=== PATIENT | female | born 1945 | race Caucasian/White ===

== ENCOUNTER 2024-06-25 07:43 | Inpatient (IN) | payer OTHER ==
[~2024-06-25] VITALS: Ht 160 cm; Wt 72.1 kg
--- NOTE | 2024-06-25 08:14 | ED.PDOC ---
Cintia. trauma (HPI) HPI Comments 78 year old female FABIOLA presents to the ED with chief complaint of back/neck pain s/p fall. Patient reports that she has been experiencing diarrhea for the past 2 days and had also taken a bottle of Magnesium Citrate yesterday, so she got up to use the restroom around 3am today. Patient relays that when getting up from the toilet, she felt lightheaded and lost her balance, had a syncopal episode, falling and being stuck on the ground unable to get up for 4 hours before her daughter found her and called 911. Patient states she is experiencing neck pain, back pain, and bilateral shoulder pain since the fall, but does not recall if she had hit her head or not. EMS notes patient's BG was noted to be 358 on scene and patient has stated she feels very dehydrated due to her diarrhea. Patient denies any nausea, vomiting, abdominal pain, SOB, dizziness, headache, or chest pain at this time. Chief Complaint: Fall Injury Time Seen by MD: 08:06 Reviewed notes: Nurses Notes, Medications, Allergies Allergies: Coded Allergies: Iodine (Verified Allergy, Unknown, 06/25/24) Sulfa Antibiotics (Verified Allergy, Unknown, 06/25/24) Information Source: Patient, Emergency Med Personnel Mode of Arrival: EMS Severity: Moderate Timing: Hours Duration: Since onset Prehospital treatment: None Location: Back, Neck, (L) Shoulder, (R) Shoulder Location of neck pain: (R) Posterior, (L) Posterior Location of laceration: None Mechanism: Fall Past Medical History PAST MEDICAL HISTORY: COPD, CVA Surgical History (Other): hip surgery 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 DEVELOPER Hx Family History Family History: Reviewed,noncontributory to illness Social History Smoker: Quit Less Than 1 Year, Cigarettes Alcohol: Denies ETOH Use Drugs: Denies Drug Use Lives In: Home Constitutional: denies: chills, diaphoresis, fatigue, fever, malaise, sweats, weakness, others EENTM: denies: blurred vision, double vision, ear bleeding, ear discharge, ear drainage, ear pain, ear ringing, eye pain, eye redness, hearing loss, mouth pain, mouth swelling, nasal discharge, nose bleeding, nose congestion, nose pain, photophobia, tearing, throat pain, throat swelling, voice changes, others Respiratory: denies: cough, hemoptysis, orthopnea, SOB at rest, shortness of breath, SOB with excertion, stridor, wheezing, others Cardiovascular: reports: syncope; denies: chest pain, dizzy spells, diaphoresis, Dyspnea on exertion, edema, irregular heart beat, left arm pain, lightheadedness, palpitations, PND, others Gastrointestinal: reports: diarrhea; denies: abdomen distended, abdominal pain, blood streaked bowels, constipated, dysphagia, difficulty swallowing, hematemesis, melena, nausea, poor appetite, poor fluid intake, rectal bleeding, rectal pain, vomiting, others Genitourinary: denies: abnormal vagina bleeding, burning, dyspareunia, dysuria, flank pain, frequency, hematuria, incontinence, pain, , vagina discharge, urgency, others Neurological: denies: dizziness, fainting, headache, left sided numbness, left sided weakness, numbness, paresthesia, pre-existing deficit, right sided numbness, right sided weakness, seizure, speech problems, tingling, tremors, weakness, others Musculoskeletal: reports: back pain, neck pain, others (Bilateral shoulder pain); denies: gout, joint pain, joint swelling, muscle pain, muscle stiffness Integumetry: denies: bruises, change in color, change in hair/nails, dryness, laceration, lesions, lumps, rash, wounds, others Allergic/Immunocompromised: denies: Difficulty Healing, Frequent Infections, Hives, Itching, others Hematologic/Lymphatic: denies: anemia, blood clots, easy bleeding, easy bruising, swollen glands, others Endocrine: denies: excessive hunger, excessive sweating, excessive thirst, excessive urination, flushing, intolerance to cold, intolerance to heat, unexplained weight gain, unexplained weight loss, others Psychiatric: denies: anxiety, bipolar disorder, depression, hopeless, panic disorder, schizophrenia, sleepless, suicidal, others All Other Systems: Reviewed and Negative Physical Exam General Appearance: No Apparent Distress, Normal HEENT: Normal ENT Inspection, PERRL/EOMI Neck: Full Range of Motion, Non-Tender, Normal, Normal Inspection Respiratory: Chest Non-Tender, Lungs Clear, No Accessory Muscle Use, No Respira tory Distress, Normal Breath Sounds Cardiovascular: No Edema, No JVD, No Murmur, No Gallop, Normal Peripheral Pulses, Regular Rate/Rhythm Breast Exam: Deferred Gastrointestinal: No Organomegaly, Non Tender, No Pulsatile Mass, Normal Bowel Sounds, Soft Genitalia: Deferred Pelvic: Deferred Rectal: Deferred Extremities: No calf tenderness, Normal capillary refill, Normal inspection, Normal range of motion, Non-tender, No pedal edema Musculoskeletal : Extremity Location: Back Apperance: Normal, Tenderness (Proximal thorax spine tenderness) Neurologic: Alert, plate developer II-XII nml as Tested, No Motor Deficits, Normal Affect, Normal Mood, No Sensory Deficits Cerebellar Function: Normal Reflexes: Normal Skin: Dry, Normal Color, Warm Lymphatic: No Adenopathy Was a procedure done? Was a procedure done?: No EKG EKG : Pulse Rate (adult): 77 Maxbass: Normal Cardiac Rhythm: PVC's Block: None Hypertrophy: None ST: Normal Comments Diffuse ST depression and ST elevation in AVR. No STEMI. Differential Diagnosis Multiple Trauma: Closed Head Injury, Fractures, Contusion Neck Injury: Cervical Sprain, Cervical Strain, Cervical Fracture X-Ray, Labs, Meds, VS Vital Signs Date Time Temp Pulse Resp B/P (MAP) Pulse Ox O2 Delivery O2 Flow Rate FiO2 06/25/24 12:31 98.2 80 18 135/63 (87) 97 98.2 06/25/24 10:36 77 06/25/24 10:30 77 06/25/24 09:57 97.5 66 18 116/77 (90) 95 97.5 06/25/24 08:30 17 Room Air* 0 21 06/25/24 07:50 98.4 79 18 123/96 (105) 95 Lab Test 06/25/24 12:43 06/25/24 10:33 06/25/24 09:32 Range/Units Troponin I High Sensitivity Pending 21 19 </=34 ng/L White Blood Count 12.8 H 4.4-10.8 10^3/uL Red Blood Count 5.03 4.0-5.20 10^6/uL Hemoglobin 16.7 H 12.2-16.2 g/dL Hematocrit 49.9 H 36.0-46.0 % Mean Corpuscular Volume 99.1 80.0-100.0 fL Mean Corpuscular Hemoglobin 33.2 H 28.0-32.0 pg Mean Corpuscular Hemoglobin Concent 33.5 32.0-36.0 g/dL Red Cell Distribution Width 14.1 11.8-14.3 % Platelet Count 220 140-450 10^3/uL Mean Platelet Volume 7.4 6.9-10.8 fL Neutrophils (%) (Auto) 74.2 37.0-80.0 % Lymphocytes (%) (Auto) 16.6 10.0-50.0 % Monocytes (%) (Auto) 8.4 0.0-12.0 % Eosinophils (%) (Auto) 0.6 0.0-7.0 % Basophils (%) (Auto) 0.2 0.0-2.0 % Neutrophils # (Auto) 9.5 H 1.6-8.6 10 ^3/uL Lymphocytes # (Auto) 2.1 0.4-5.4 10 ^3/uL Monocytes # (Auto) 1.1 0-1.3 10 ^3/uL Eosinophils # (Auto) 0.1 0-0.8 10 ^3/uL Basophils # (Auto) 0 0-0.2 10 ^3/uL Nucleated Red Blood Cells 0.1 % Sodium Level 138 136-145 mmol/L Potassium Level 2.6 L 3.5-5.1 mmol/L Chloride Level 88 L 98-107 mmol/L Carbon Dioxide Level 31 20-31 mmol/L Anion Gap 19 H 5-15 Blood Urea Nitrogen 16 9-23 mg/dL Creatinine 0.79 0.550-1.02 mg/dL Glomerular Filtration Rate Calc 76 >90 mL/min BUN/Creatinine Ratio 20.3 H 10.0-20.0 Serum Glucose 147 H 74-106 mg/dL Calcium Level 10.8 H 8.7-10.4 mg/dL Plasma/Serum Blood Alcohol 3.4 <10 mg/dL Chest XR: FINDINGS: Lines and Tubes: None Lungs: No focal consolidation. Pleura: No effusion. No pneumothorax. Cardiomediastinal contours: Unremarkable Bones: No acute osseous abnormality. IMPRESSION: No acute cardiopulmonary disease. Head CT: FINDINGS: There is no acute intracranial hemorrhage or extraaxial fluid collection. No mass effect or midline shift. Chronic appearing lacunar infarcts in the basal ganglia bilaterally. Small lucency also noted in the right side of the bhavin, suspect old small lacunar infarct, most likely chronic Scatte red areas of hypoattenuation are seen in the periventricular and subcortical white matter, which are nonspecific but most likely sequelae of small vessel ischemic disease. The ventricles and sulci are within normal limits in size for age. Basal cisterns are patent. The calvarium is unremarkable. Paranasal sinuses and mastoid air cells are clear. IMPRESSION: 1. No acute intracranial hemorrhage. 2. Multiple chronic appearing bilateral lacunar infarcts all small suspected lacunar infarct in the right side of the bhavin. 3. Findings consistent were sequela small-vessel ischemic disease. T-Spine CT: FINDINGS: The alignment is preserved. There is mild s shaped curvature of the lumbar spine. The vertebral bodies are normal in height. The intervertebral disc spaces are maintained. There is no evidence of spinal canal or neural foraminal stenosis. The prevertebral soft tissues are unremarkable. Paraspinal muscles are also within normal limits. IMPRESSION: 1. No fracture or malalignment in the thoracic spine C-Spine CT: FINDINGS: Bones: Straightening of the normal cervical lordosis. No significant spondylolisthesis. Vertebral body heights are maintained. Posterior elements are intact. No acute fracture. Multilevel moderate disc space narrowing in the cervical spine with associated endplate sclerosis and endplate spurring, greatest at the C5-C6 and C6-C7 levels. Multilevel facet and uncinate hypertrophy with areas of moderate neural foraminal stenosis. Paraspinal soft tissues: Prevertebral and paraspinal soft tissues are unremarkable. Other: No other significant findings. IMPRESSION: 1. No evidence of acute fracture or spondylolisthesis. 2. Straightening of the normal cervical lordosis, may be positional or due to muscle spasm. 3. Degenerative disc disease and facet/uncinate disease in the cervical spine as described above. Images Reviewed?: Images reviewed and evaluated by me Time of 1ST Reevaluation: 09:06 Reevaluation 1ST: Unchanged Time of 2ND Reevaluation: 13:22 Reevaluation 2ND: Improved Patient Education/Counseling: Diagnosis, Treatment Family Education/Counseling: No Family Present Departure 1 Departure Time of Disposition: :22 Impression: Primary Impression: Syncope and collapse Additional Impressions: Dehydration Diarrhea Disposition: ADMITTED INPATIENT Admit to: [facility] Condition: Stable Critical Care Note Critical Care Time?: Yes (35 min-critical care time only) Critical care comment: CRITICAL CARE TIME: *35 minutes Treatments/Evaluations: Close monitoring and treatment of unstable vital signs, cardiorespiratory, and neurologic status, while maintaining tight balance of fluid, respiratory, and cardiac interventions. This time includes discussing the case with the patient and the patients family. This time does not include all procedures stated elsewhere in this record. This time also includes reviewing old records, labs and radiological studies. This time includes examining and re- examining the patient. Additionally, this time also includes arranging care with admitting and consulting physicians. Stability Stability form required: No Heart Score Heart Score: Heart Score Response (Comments) Value History N/A 0 EKG N/A 0 Age N/A 0 Risk Factors N/A 0 Troponin N/A 0 Total 0 I personally scribed for KENYON MONTEZ MD ([email or web address]) on 06/25/24 at 08:14. Electronically submitted by Tam Forte ([email or web address]). I personally scribed for KENYON MONTEZ MD ([email or web address]) on 06/25/24 at 09:49. Electronically submitted by Tam Forte ([email or web address]). I personally scribed for KENYON MONTEZ MD ([email or web address]) on 06/25/24 at 10:36. Electronically submitted by Tam Forte ([email or web address]). I personally scribed for KENYON MONTEZ MD ([email or web address]) on 06/25/24 at 11:39. Electronically submitted by Tam Forte ([email or web address]). I personally scribed for KENYON MONTEZ MD ([email or web address]) on 06/25/24 at 13:12. Electronically submitted by Tam Forte ([email or web address]). KENYON MONTEZ MD Jun 25, 2024 08:14
[2024-06-25] MEDS: SODIUM CHLORIDE 0.9% 500 ML IVB ONE (08:15)
[2024-06-25 08:30] VITALS: RESP 17
--- NOTE | 2024-06-25 09:23 | DVH ---
CLINICAL INFORMATION: 78 years old, Female; syncope. TECHNIQUE: Axial imaging was obtained through the brain without contrast. Coronal and sagittal refor matted images were obtained, reviewed, and stored. Images were reviewed in brain and bone windows. A ll CT scans at this medical facility are performed using dose modulation techniques as appropriate to a performed exam including the following: Automated exposure control was utilized; adjustment of the MA and/or KV according to patient size; and use of iterative reconstruction technique. CTDIvol = 56.75 mGy DLP = 1003.71 mGy-cm COMPARISON: None FINDINGS: There is no acute intracranial hemorrhage or extraaxial fluid collection. No mass effect o r midline shift. Chronic appearing lacunar infarcts in the basal ganglia bilaterally. Small lucency a lso noted in the right side of the bhavin, suspect old small lacunar infarct, most likely chronic Scatt ered areas of hypoattenuation are seen in the periventricular and subcortical white matter, which are nonspecific but most likely sequelae of small vessel ischemic disease. The ventricles and sulci are within normal limits in size for age. Basal cisterns are patent. The calvarium is unremarkable. P aranasal sinuses and mastoid air cells are clear. IMPRESSION: 1. No acute intracranial hemorrhage. 2. Multiple chronic appearing bilateral lacunar infarcts all small suspected lacunar infarct in the r ight side of the bhavin. 3. Findings consistent were sequela small-vessel ischemic disease.
--- NOTE | 2024-06-25 09:26 | DVH ---
EXAM: XY CHEST PORTABLE Indication: sob Technique: Single frontal view of the chest was obtained Comparison: None FINDINGS: Lines and Tubes: None Lungs: No focal consolidation. Pleura: No effusion. No pneumothorax. Cardiomediastinal contours: Unremarkable Bones: No acute osseous abnormality. IMPRESSION: No acute cardiopulmonary disease.
--- NOTE | 2024-06-25 09:27 | DVH ---
CLINICAL HISTORY: fall injury. COMPARISON: None TECHNIQUE: Axial CT images of the cervical spine were obtained without IV contrast. Coronal and sagit sammy reformatted images were obtained. All CT scans at this medical facility are performed using dose modulation techniques as appropriate to a performed exam including the following: Automated exposure control was utilized; adjustment of the MA and/or KV according to patient size; and use of iterative reconstruction technique. CTDIvol = 23.68, 0.41, 0.07 mGy DLP = 574.43 mGy-cm FINDINGS: Bones: Straightening of the normal cervical lordosis. No significant spondylolisthesis. Vertebral frederick dy heights are maintained. Posterior elements are intact. No acute fracture. Multilevel moderate disc space narrowing in the cervical spine with associated endplate sclerosis and endplate spurring, grea test at the C5-C6 and C6-C7 levels. Multilevel facet and uncinate hypertrophy with areas of moderate neural foraminal stenosis. Paraspinal soft tissues: Prevertebral and paraspinal soft tissues are unremarkable. Other: No other significant findings. IMPRESSION: 1. No evidence of acute fracture or spondylolisthesis. 2. Straightening of the normal cervical lordosis, may be positional or due to muscle spasm. 3. Degenerative disc disease and facet/uncinate disease in the cervical spine as described above.
--- NOTE | 2024-06-25 09:31 | DVH ---
CLINICAL INDICATION: 78 years old, Female; fall. TECHNIQUE: CT of the lumbar spine was performed without intravenous contrast. Sagittal and coronal re formatted images are provided. All CT scans at this medical facility are performed using dose modula tion techniques as appropriate to a performed exam including the following: Automated exposure contro l was utilized; adjustment of the MA and/or KV according to patient size; and use of iterative recons truction technique. COMPARISON: None CT Dose: CTDI volume is 31.2 mGy. Dose-length product is 1183 mGy*cm FINDINGS: The alignment is preserved. There is mild s shaped curvature of the lumbar spine. The vertebral tamia s are normal in height. The intervertebral disc spaces are maintained. There is no evidence of spinal canal or neural foraminal stenosis. The prevertebral soft tissues are unremarkable. Paraspinal muscles are also within normal limits. IMPRESSION: 1. No fracture or malalignment in the thoracic spine
[2024-06-25 09:49] LABS: Basophils # (auto) 0 10 ^3/uL (0-0.2); Basophils % (auto) 0.2 % (0.0-2.0); Eosinophils # (auto) 0.1 10 ^3/uL (0-0.8); Eosinophils % (auto) 0.6 % (0.0-7.0); Hematocrit 49.9 % (36.0-46.0); Hemoglobin 16.7 g/dL (12.2-16.2); Lymphocytes # (auto) 2.1 10 ^3/uL (0.4-5.4); Lymphocytes % (auto) 16.6 % (10.0-50.0); Mean Corpuscular Hemoglobin 33.2 pg (28.0-32.0); Mean Corpuscular Hgb Conc. 33.5 g/dL (32.0-36.0); Mean Corpuscular Volume 99.1 fL (80.0-100.0); Monocytes # (auto) 1.1 10 ^3/uL (0-1.3); Monocytes % (auto) 8.4 % (0.0-12.0); Neutrophils # (auto) 9.5 10 ^3/uL (1.6-8.6); Neutrophils % (auto) 74.2 % (37.0-80.0); Nucleated Red Blood Cells % 0.1 %; Platelet Count (auto) 220 10^3/uL (140-450); Red Blood Cells 5.03 10^6/uL (4.0-5.20); Red Cell Distribution Width 14.1 % (11.8-14.3); White Blood Cell 12.8 10^3/uL (4.4-10.8)
[2024-06-25 12:16] LABS: Chloride 88 mmol/L (98-107); Sodium 138 mmol/L (136-145)
[2024-06-25 12:18] LABS: Glucose 147 mg/dL (74-106)
[2024-06-25 12:19] LABS: Anion Gap 19 (5-15); Calcium 10.8 mg/dL (8.7-10.4); Carbon Dioxide 31 mmol/L (20-31)
[2024-06-25 12:37] LABS: BUN/Creatinine Ratio 20.3 (10.0-20.0); Blood Urea Nitrogen 16 mg/dL (9-23); Potassium 2.6 mmol/L (3.5-5.1)
[2024-06-25] MEDS: POTASSIUM EFFERVESENT TAB 25 MEQ GT ONE (14:48)
--- NOTE | 2024-06-25 17:34 | DVHHP2 ---
Admitting Diagnosis: Admission date: 06/25/2024 Patient is s/p fall History of Present Illness Patient is a 78-year-old female who presents to the ED with neck and back pain status post fall. Patient states that due to having diarrhea for the past 2 days she has taken a bottle of magnesium citrate yesterday. Patient had got up around 3 AM today to use the bathroom and when getting up from the toilet seat she felt lightheaded and lost her balance and had a syncopal episode. Patient fell and was stuck and unable to get up for 4 hours before her daughter found her and called 911. Patient states that she is experiencing bilateral shoulder pain, back pain, and neck pain since her fall. Patient states she cannot recall if she hit her head. EMS reports that patient's blood glucose levels were at 358 on scene and patient also states that she felt dehydrated due to her diarrhea. Patient denies any other symptoms at this time. While in the emergency department the patient was evaluated by the provider, As per provider: Labs, vital signs, and imagining monitored. Patient will be admitted for further evaluation and treatment. I discussed admission with the patient/family and is in agreement to treatment plan Allergies: Coded Allergies: Iodine (Verified Allergy, Unknown, 06/25/24) Sulfa Antibiotics (Verified Allergy, Unknown, 06/25/24) Home Meds Reported Medications Ropinirole Hydrochloride (Ropinirole Hcl) 1 Mg Tab, 1 MG PO DAILY, TAB 06/26/24 Docusate Sodium (Colace) 100 Mg Cap, 1 CAP PO DAILY for CONSTIPATION, #30 CAP 06/26/24 Hydrochlorothiazide (Hydrochlorothiazide) 25 Mg Tab, 1 TAB PO DAILY, #30 TAB 5 Refills 06/26/24 Rosuvastatin Calcium (Crestor) 10 Mg Tab, 1 TAB PO DAILY, #30 TAB 5 Refills 06/26/24 Dexamethasone (Decadron) 4 Mg Tb, 4 TAB PO DAILY, #8 TAB 06/26/24 Metoprolol Tartrate (Metoprolol Tartrate) 25 Mg Tab, 1 TAB PO BID, #180 TAB 1 Refill 06/26/24 Furosemide (Furosemide) 20 Mg Tab, 1 TAB PO BID, #90 TAB 1 Refill 06/26/24 Aspirin Buffered (Parmjit Carb-Mag (Aspirin 325 mg) 1 Tab Tab, 1 TAB PO DAILY, TAB 06/26/24 Current Medications Current Medications Medications (Trade) Dose Ordered Sig/Ileana Route PRN Reason Start Time Stop Time Status Last Admin Docusate Sodium (Colace Capsule) 100 mg DAILY PO 06/26/24 10:00 Metoprolol Tartrate (Lopressor Tablet) 25 mg BID PO 06/26/24 10:00 06/26/24 10:16 Patient Own Medication 1 tab DAILY PO 06/26/24 10:00 Patient Own Medication 1 mg DAILY PO 06/26/24 10:00 Atorvastatin Calcium (Lipitor) 20 mg DAILY PO 06/27/24 10:00 Lisinopril (Zestril Tablet) 40 mg DAILY PO 06/26/24 10:00 Pantoprazole Sodium (Protonix Tablet) 40 mg DAILY@0600 PO 06/26/24 09:45 06/26/24 10:15 Metronidazole (Flagyl Tablet) 500 mg Q8HR PO 06/26/24 09:45 06/26/24 15:33 Diphenoxylate HCl/ Atropine (Lomotil Tablet) 2.5 mg PRN PRN PO FOR DIARRHEA 06/26/24 09:45 Dicyclomine HCl (Bentyl Capsule) 20 mg QID PO 06/26/24 12:00 06/26/24 17:23 Review of Systems Constitutional: denies chills, denies fever, denies malaise Eyes: denies eye pain, denies vision change ENT: denies ear pain, denies headache, denies nasal congestion, denies painful swallowing, denies voice change Cardiovascular: denies chest pain, denies edema, denies orthopnea, denies palpitations, denies paroxysmal nocturnal dyspnea Respiratory: denies cough, denies shortness of breath Gastrointestinal: denies constipation, denies diarrhea, denies nausea, denies vomiting Genitourinary: denies dysuria, denies frequent urination, denies urethral di scharge Musculoskeletal: denies back pain, denies joint pain, denies muscle pain Skin: denies bruising, denies itching, denies rash Neurological: denies focal weakness, denies headache, denies sensory changes Psychiatric: denies anxiety, denies depression Endocrine: denies polydipsia, denies polyuria Hematologic/Lymphatic: denies easy bleeding, denies easy bruising, denies enl arged lymph nodes Allergic/Immunologic: denies allergy, denies hives Vital Signs Vital Signs Date Time Temp Pulse Resp B/P (MAP) Pulse Ox O2 Delivery O2 Flow Rate FiO2 06/26/24 17:01 97.6 89 16 101/51 (68) 94 97.6 06/26/24 08:00 Room Air* 0 21 Physical Exam General Appearance: alert, no distress HEENT: EOMI, PERRLA, normal external inspect of ears, no icterus, no nasal drainage Neck: no carotid bruit, no jugular venous distention (JVD), no lymphadenopathy Chest: normal thorax Respiratory: clear to auscultation, normal air movement Cardiovascular: regular rate and rhythm, no diastolic murmur, no jugular venous distention (JVD), no rub, no systolic murmur Abdominal: soft, no hepatomegaly, no mass, no splenomegaly, no tenderness Genitourinary: grossly normal external Musculoskeletal: no joint tenderness, no swelling Extremities: normal pulses, no calf tenderness, no clubbing, no cyanosis, no edema Skin: no bruising, no jaundice, no rash Neurological: alert, No focal deficit Results Labs Test 06/26/24 10:45 06/26/24 05:54 06/25/24 12:43 06/25/24 09:32 Range/Units Urine Color Yellow Yellow Urine Clarity Clear Clear Urine pH 6.0 5.0-9.0 Urine Specific Pierce 1.016 1.001-1.035 Urine Protein Negative Negative Urine Ketones Negative Negative Urine Blood Negative Negative /uL Urine Nitrite Negative Negative Urine Bilirubin Negative Negative Urine Urobilinogen Normal Negative mg/dL Urine Leukocyte Esterase 2+ Negative /uL Urine RBC 1 0 - 4 /hpf Urine WBC 13 0 - 5 /hpf Urine Squamous Epithelial Cells Few <5 /hpf Urine Bacteria None seen None Seen /hpf Urine Hyaline Casts Many 0 - 2 /lpf Urine Glucose Normal Normal mg/dL White Blood Count 8.3 # 4.4-10.8 10^3/uL Red Blood Count 4.63 4.0-5.20 10^6/uL Hemoglobin 15.7 12.2-16.2 g/dL Hematocrit 45.8 36.0-46.0 % Mean Corpuscular Volume 99.0 80.0-100.0 fL Mean Corpuscular Hemoglobin 33.9 H 28.0-32.0 pg Mean Corpuscular Hemoglobin Concent 34.2 32.0-36.0 g/dL Red Cell Distribution Width 14.3 11.8-14.3 % Platelet Count 190 140-450 10^3/uL Mean Platelet Volume 7.5 6.9-10.8 fL Neutrophils (%) (Auto) 60.0 37.0-80.0 % Lymphocytes (%) (Auto) 25.4 10.0-50.0 % Monocytes (%) (Auto) 12.3 H 0.0-12.0 % Eosinophils (%) (Auto) 2.0 0.0-7.0 % Basophils (%) (Auto) 0.3 0.0-2.0 % Neutrophils # (Auto) 5.0 1.6-8.6 10 ^3/uL Lymphocytes # (Auto) 2.1 0.4-5.4 10 ^3/uL Monocytes # (Auto) 1.0 0-1.3 10 ^3/uL Eosinophils # (Auto) 0.2 0-0.8 10 ^3/uL Basophils # (Auto) 0 0-0.2 10 ^3/uL Nucleated Red Blood Cells 0.1 % Sodium Level 134 L 136-145 mmol/L Potassium Level 2.9 L 3.5-5.1 mmol/L Chloride Level 86 L 98-107 mmol/L Carbon Dioxide Level > 40 *H 20-31 mmol/L Anion Gap 7.16222 5-15 Blood Urea Nitrogen 14 9-23 mg/dL Creatinine 0.72 0.550-1.02 mg/dL Glomerular Filtration Rate Calc 85 >90 mL/min BUN/Creatinine Ratio 19.4 10.0-20.0 Serum Glucose 127 H 74-106 mg/dL Calcium Level 9.6 8.7-10.4 mg/dL Total Bilirubin 1.1 H 0.2-1.0 mg/dL Aspartate Amino Transferase (AST) 45 H 13-40 U/L Alanine Aminotransferase (ALT) 47 H 7-40 U/L Alkaline Phosphatase 67 46-116 U/L Total Protein 6.4 5.7-8.2 g/dL Albumin 3.9 3.2-4.8 g/dL Troponin I High Sensitivity 21 </=34 ng/L Plasma/Serum Blood Alcohol 3.4 <10 mg/dL Plan 1. Syncope Monitor 2. Fall Monitor, PT eval 3. Dehydration Monitor, IV fluids, electrolytes 4. Hypokalemia Monitor 5. Diarrhea Monitor, PPI 6. Hypertensive urgency Monitor, antihypertensives, DVT prophylaxis Plan discussed with: Patient, Other DANN LOPEZ NP Jun 25, 2024 17:34
[2024-06-25] MEDS ORDERED: ACETAMINOPHEN 325 MG TAB PO PRN (17:45)
[2024-06-25] MEDS ORDERED: ONDANSETRON HCL 4 MG/2 ML VIAL IV PRN (17:45)
[2024-06-25] MEDS ORDERED: MORPHINE SULFATE INJ 2 MG/ml SYRG IV PRN (17:45)
[2024-06-25] MEDS: SODIUM CHLORIDE 0.9% 1,000 ML IV SCH (17:45)
[2024-06-25] MEDS ORDERED: NITROGLYCERIN 0.4 MG SL TAB SL PRN (17:45)
[2024-06-25] MEDS: HYDROcodone-ACET 5/325MG TAB PO PRN (19:34)
[2024-06-25] MEDS: POTASSIUM CHL 20 Meq TABLET PO ONE ×2 (19:51→20:09)
[2024-06-25 22:20] VITALS: BP_SYST 147; BP_SYST 197; BP_DIAS 72; PULSE 94; RESP 17; TEMP 97.7; O2SAT 99
[2024-06-26] VITALS (9 sets, daily range): BP systolic 101–163; BP diastolic 51–82; PULSE 76–94; RESP 14–18; TEMP 97.6–98.2; O2SAT 93–99
[2024-06-26] MEDS: MORPHINE SULFATE INJ 2 MG/ml SYRG IV PRN (05:29)
[2024-06-26 06:58] LABS: Basophils # (auto) 0 10 ^3/uL (0-0.2); Basophils % (auto) 0.3 % (0.0-2.0); Eosinophils # (auto) 0.2 10 ^3/uL (0-0.8); Hematocrit 45.8 % (36.0-46.0); Hemoglobin 15.7 g/dL (12.2-16.2); Lymphocytes # (auto) 2.1 10 ^3/uL (0.4-5.4); Lymphocytes % (auto) 25.4 % (10.0-50.0); Mean Corpuscular Hemoglobin 33.9 pg (28.0-32.0); Mean Corpuscular Hgb Conc. 34.2 g/dL (32.0-36.0); Monocytes % (auto) 12.3 % (0.0-12.0); Nucleated Red Blood Cells % 0.1 %; Platelet Count (auto) 190 10^3/uL (140-450); Red Blood Cells 4.63 10^6/uL (4.0-5.20); Red Cell Distribution Width 14.3 % (11.8-14.3); White Blood Cell 8.3 10^3/uL (4.4-10.8)
[2024-06-26 07:03] LABS: Albumin 3.9 g/dL (3.2-4.8); Alkaline Phosphatase 67 U/L (46-116); BUN/Creatinine Ratio 19.4 (10.0-20.0); Bilirubin, Total 1.1 mg/dL (0.2-1.0); Blood Urea Nitrogen 14 mg/dL (9-23); Calcium 9.6 mg/dL (8.7-10.4); Total Protein 6.4 g/dL (5.7-8.2)
[2024-06-26 07:17] LABS: Alanine Aminotransferase 47 U/L (7-40); Anion Gap 7.99999 (5-15); Aspartate Aminotransferase 45 U/L (13-40); Chloride 86 mmol/L (98-107); Glucose 127 mg/dL (74-106); Potassium 2.9 mmol/L (3.5-5.1); Sodium 134 mmol/L (136-145)
[2024-06-26 07:18] LABS: Carbon Dioxide > 40 mmol/L (20-31)
[2024-06-26] MEDS ORDERED: ASPI-717 PO (08:36)
[2024-06-26] MEDS ORDERED: FURO20TA3 PO (08:37)
[2024-06-26] MEDS ORDERED: ROPI1TAB78 PO ×2 (08:38→08:47)
[2024-06-26] MEDS ORDERED: METO25TA5 PO (08:38)
[2024-06-26] MEDS ORDERED: DEX4T PO (08:40)
[2024-06-26] MEDS ORDERED: ROSU10TA16 PO (08:41)
[2024-06-26] MEDS ORDERED: HYDR25TA4 PO (08:42)
[2024-06-26] MEDS ORDERED: DOCU-94 PO (08:45)
[2024-06-26] MEDS: POTASSIUM EFFERVESENT TAB 25 MEQ PO ONE (08:49)
--- NOTE | 2024-06-26 09:34 | DVHPN2 ---
Progress Note - Dictate Date Seen: Jun 26, 2024 Medical Necessity Reason Pt with a Central, PICC or Fol: No vital signs Vital Sign Date Time Temp Pulse Resp B/P (MAP) Pulse Ox O2 Delivery O2 Flow Rate FiO2 06/26/24 09:10 97.8 88 14 112/57 (75) 97 97.8 06/25/24 22:20 Nasal Cannula* 3 32 Total Intake and Output 06/25/24 06/25/24 06/26/24 15:00 23:00 07:00 Intake Total 700 ml Balance 700 ml medications Current Medications Medications Dose Ordered Sig/Ileana Route Start Time Stop Time Status Last Admin Dose Admin Sodium Chloride 1,000 ml @ 120 mls/hr Q8H20M IV 06/25/24 17:45 06/26/24 02:05 120 MLS/HR Acetaminophen/ Hydrocodone Bitart 1 tab Q4HP PRN PO 06/25/24 17:45 06/26/24 05:35 1 TAB Ondansetron HCl 4 mg Q4HP PRN IV 06/25/24 17:45 Acetaminophen 650 mg Q6HP PRN PO 06/25/24 17:45 Morphine Sulfate 2 mg Q4HPRN PRN IV 06/25/24 17:45 Nitroglycerin 0.4 mg Q5MINP PRN SL 06/25/24 17:45 Morphine Sulfate 2 mg Q30M PRN IV 06/25/24 17:45 objective General Appearance: alert, no distress HEENT: EOMI, PERRLA, normal external inspect of ears, no icterus, no nasal drainage Neck: no carotid bruit, no jugular venous distention (JVD), no lymphadenopathy Chest: normal thorax Respiratory: clear to auscultation, normal air movement Cardiovascular: regular rate and rhythm, no diastolic murmur, no jugular venous distention (JVD), no rub, no systolic murmur Abdominal: soft, no hepatomegaly, no mass, no splenomegaly, no tenderness Genitourinary: grossly normal external Musculoskeletal: no joint tenderness, no swelling Extremities: normal pulses, no calf tenderness, no clubbing, no cyanosis, no edema Skin: no bruising, no jaundice, no rash Neurological: alert, No focal deficit laboratory and microbiology Laboratory Tests 06/26/24 05:54 Test 06/26/24 05:54 Range/Units Serum Glucose 127 H 74-106 mg/dL Problem List 1. Syncope Monitor 2. Fall Monitor, PT eval 3. Dehydration Monitor, IV fluids, replace electrolytes 4. Hypokalemia Monitor 5. Diarrhea Monitor, PPI 6. Hypertensive urgency Monitor, antihypertensives, DVT prophylaxis Assessment/Plan Subjective: Patient is awake and alert. Objective: Patient was previously on hospice. Patient was admitted status post a fall. Patient had a campoverde scan at the emergency room. No acute fractures were found. Patient was found to be mildly dehydrated due to diarrhea. Daughter states patient does have a history of irritable bowel syndrome although it appears that her symptoms are much more worse than her baseline. Patient was started on IV fluids, patient was also started on oral Flagyl. Plan: Obtain urinalysis. Continue oral antibiotics at this time. I did speak with patient's daughter Erendira at length patient will resume hospice and DC planning for tomorrow. Plan discussed with: Patient, Other DANN LOPEZ NP Jun 26, 2024 09:34
[2024-06-26] MEDS ORDERED: DIPHENOXYLATE W/ATROPINE 2.5 MG TAB PO PRN (09:45)
[2024-06-26] MEDS: DOCUSATE SOD 100 MG CAP PO SCH (10:00)
[2024-06-26] MEDS: LISINOPRIL 20 MG TAB PO SCH (10:00)
[2024-06-26] MEDS: PANTOPRAZOLE 40 MG TAB PO SCH (10:15)
[2024-06-26] MEDS: metroNIDAZOLE 500 MG TAB PO SCH (10:15)
[2024-06-26] MEDS: METOPROLOL TARTRATE 25 MG TAB PO SCH (10:16)
--- NOTE | 2024-06-26 10:33 | ECG ---
[facility] Test Date: 2024-06-25 Test Time: 10:30:44 Pat Name: CHANDAN BONILLA Department: ER Room: 0296T A Gender: F Table Attendant: RAPHAEL : 1945 Requested By: KENYON MONTEZ Order Number: [id number] Reading MD: Ernst Duran Measurements Intervals [place] Rate: 77 P: 29 [place]: 140 QRS: 21 QRSD: 94 T: 263 QT: 387 QTc: 438 Interpretive Statements Sinus rhythm Atrial premature complex Probable LVH with secondary repol abnrm ST depression, consider ischemia, diffuse lds Electronically Signed On 06-26-2024 16:23:56 PST by Ernst Duran Please click the below link to view image of tracing.
[2024-06-26] MEDS: ASPIRIN BUFFERED PO SCH (10:47)
[2024-06-26] MEDS: Ropinirole Hydrochloride (Ropinirole Hcl) 1 MG PO SCH (10:47)
[2024-06-26 10:56] LABS: Urine Bacteria None Seen /hpf (None Seen)
[2024-06-26] MEDS: DICYCLOMINE HCL 10 MG CAP PO SCH (11:07)
[2024-06-26 11:56] LABS: Urine Blood Negative /uL (Negative); Urine Clarity Clear (Clear); Urine Color Yellow (Yellow); Urine Hyaline Cast MANY /lpf (0 - 2); Urine Protein, UAD Negative (Negative); Urine Specific Gravity 1.016 (1.001-1.035); Urine Urobilinogen Normal (Negative); Urine WBC 13 /hpf (0 - 5)
[2024-06-26] MEDS: MELATONIN 5 MG TAB PO ONE (22:59)
[2024-06-27] VITALS (7 sets, daily range): BP systolic 71–156; BP diastolic 30–95; PULSE 59–75; RESP 16–19; TEMP 97.8–98.6; O2SAT 95–99
[2024-06-27] MEDS: ATORVASTATIN 20 MG TAB PO SCH (08:36)
[2024-06-27] MEDS ORDERED: OXY5T PO (09:14)
[2024-06-27] MEDS ORDERED: ALPR1TAB7 PO (09:14)
[2024-06-27] MEDS ORDERED: DICY10CA PO (09:44)
--- NOTE | 2024-06-27 09:46 | DVHDS2 ---
Discharge Summary Date of Admission Jun 25, 2024 at 17:31 Date of Discharge: Jun 27, 2024 Labs/Diagnostic Data: Laboratory Results Test 06/26/24 10:45 06/26/24 05:54 06/25/24 12:43 06/25/24 09:32 Urine Color Yellow (Yellow) Urine Clarity Clear (Clear) Urine pH 6.0 (5.0-9.0) Urine Specific [place] 1.016 (1.001-1.035) Urine Protein Negative (Negative) Urine Ketones Negative (Negative) Urine Blood Negative /uL (Negative) Urine Nitrite Negative (Negative) Urine Bilirubin Negative (Negative) Urine Urobilinogen Normal mg/dL (Negative) Urine Leukocyte Esterase 2+ /uL (Negative) Urine RBC 1 /hpf (0 - 4) Urine WBC 13 /hpf (0 - 5) Urine Squamous Epithelial Cells Few /hpf (<5) Urine Bacteria None seen /hpf (None Seen) Urine Hyaline Casts Many /lpf (0 - 2) Urine Glucose Normal mg/dL (Normal) White Blood Count 8.3 10^3/uL (4.4-10.8) Red Blood Count 4.63 10^6/uL (4.0-5.20) Hemoglobin 15.7 g/dL (12.2-16.2) Hematocrit 45.8 % (36.0-46.0) Mean Corpuscular Volume 99.0 fL (80.0-100.0) Mean Corpuscular Hemoglobin 33.9 pg (28.0-32.0) Mean Corpuscular Hemoglobin Concent 34.2 g/dL (32.0-36.0) Red Cell Distribution Width 14.3 % (11.8-14.3) Platelet Count 190 10^3/uL (140-450) Mean Platelet Volume 7.5 fL (6.9-10.8) Neutrophils (%) (Auto) 60.0 % (37.0-80.0) Lymphocytes (%) (Auto) 25.4 % (10.0-50.0) Monocytes (%) (Auto) 12.3 % (0.0-12.0) Eosinophils (%) (Auto) 2.0 % (0.0-7.0) Basophils (%) (Auto) 0.3 % (0.0-2.0) Neutrophils # (Auto) 5.0 10 ^3/uL (1.6-8.6) Lymphocytes # (Auto) 2.1 10 ^3/uL (0.4-5.4) Monocytes # (Auto) 1.0 10 ^3/uL (0-1.3) Eosinophils # (Auto) 0.2 10 ^3/uL (0-0.8) Basophils # (Auto) 0 10 ^3/uL (0-0.2) Nucleated Red Blood Cells 0.1 % Sodium Level 134 mmol/L (136-145) Potassium Level 2.9 mmol/L (3.5-5.1) Chloride Level 86 mmol/L (98-107) Carbon Dioxide Level > 40 mmol/L (20-31) Anion Gap 7.94562 (5-15) Blood Urea Nitrogen 14 mg/dL (9-23) Creatinine 0.72 mg/dL (0.550-1.02) Glomerular Filtration Rate Calc 85 mL/min (>90) BUN/Creatinine Ratio 19.4 (10.0-20.0) Serum Glucose 127 mg/dL (74-106) Calcium Level 9.6 mg/dL (8.7-10.4) Total Bilirubin 1.1 mg/dL (0.2-1.0) Aspartate Amino Transferase (AST) 45 U/L (13-40) Alanine Aminotransferase (ALT) 47 U/L (7-40) Alkaline Phosphatase 67 U/L (46-116) Total Protein 6.4 g/dL (5.7-8.2) Albumin 3.9 g/dL (3.2-4.8) Troponin I High Sensitivity 21 ng/L (</=34) Plasma/Serum Blood Alcohol 3.4 mg/dL (<10) Other Laboratory Tests 06/26/24 05:54 Brief Hx & Hospital Course: Patient is a 78-year-old female who presents to the ED with neck and back pain status post fall. Patient states that due to having diarrhea for the past 2 days she has taken a bottle of magnesium citrate yesterday. Patient had got up around 3 AM today to use the bathroom and when getting up from the toilet seat she felt lightheaded and lost her balance and had a syncopal episode. Patient fell and was stuck and unable to get up for 4 hours before her daughter found her and called 911. Patient states that she is experiencing bilateral shoulder pain, back pain, and neck pain since her fall. Patient states she cannot recall if she hit her head. EMS reports that patient's blood glucose levels were at 358 on scene and patient also states that she felt dehydrated due to her diarrhea. Patient denies any other symptoms at this time. Patient was admitted status post fall. Patient was seen in the emergency room and multiple images were taken. No acute fractures were found. Patient reportedly was admitted for dehydration due to diarrhea. According to patient's daughter Erendira patient has a long history of IBS. Patient states she had been weak and has been having more diarrhea than normal. Patient was started on antidiarrheals and dicyclomine and was given IV hydration. Patient's condition improved and she was discharged home with home hospice with [facility] and she will follow-up with the director software in 1 week. The patient received proper medical treatment and medications. Vital signs, Imaging and Laboratory Work was monitored daily. All consults recommendations were followed as provided. There were no complaints or new complaints upon discharge, all questions and concerns were answered. Patient was advised to return to the ER or call 911 if any headaches, dizziness, shortness of breath, chest pain, bleeding, fevers, or worsening of medical condition. Patient/Family was counseled about treatment plan, medications, possible side effects, patient verbalized understanding. All questions were answered to the best of my ability. The patient symptoms improved and they are okay to be DC. Condition at Discharge: Stable Final Diagnosis/Problems List S/P fall History of IBS with c/o diarrhea several days Dehydration Syncope Hypokalemia Hypertensive urgency Discharge Disposition: Hospice - Home Discharge Instruct/Medications Diet: Regular Activity: No Restrictions, As Tolerated Follow Up/Referral: hospice md Discharge Statement: "Patient was advised to return to the ER or call 911 if any headaches, dizziness, shortness of breath, chest pain, abdominal pain, bleeding, fevers, or worsening of medical condition. Patient was counseled about treatment plan, medications, possible side effects, patientverbalized understanding. All questions were answered to the best of my ability. This discharge took greater then 30 minutes in planning, reviewing documentation, counseling the patient, and discussing with other team members." ASSESSMENT ASSESSMENT Assessment S/P fall History of IBS with c/o diarrhea several days Dehydration DANN LOPEZ NP Jun 27, 2024 09:46
[2024-06-27 10:56] LABS: Sodium 140 mmol/L (136-145)
[2024-06-27 10:57] LABS: Anion Gap 5 (5-15); Calcium 9.3 mg/dL (8.7-10.4)
[2024-06-27 11:02] LABS: BUN/Creatinine Ratio 14.6 (10.0-20.0); Blood Urea Nitrogen 12 mg/dL (9-23)
[2024-06-27 11:05] LABS: Glucose 173 mg/dL (74-106)
[2024-06-27 11:19] LABS: Chloride 95 mmol/L (98-107); Potassium 2.9 mmol/L (3.5-5.1)
[2024-06-27 11:21] LABS: Carbon Dioxide 40 mmol/L (20-31)
[2024-06-27] MEDS: POTASSIUM EFFERVESENT TAB 25 MEQ PO ONE (11:56)
[2024-06-27] MEDS: SODIUM CHLORIDE 0.9% 250 ML IV ONE (14:15)
[2024-06-27] MEDS ORDERED: MELATONIN 5 MG TAB PO ONE ×2 (22:00→23:00)
== END 2024-06-27 18:30 | disposition hospice, home (50) | DRG 641 ==
LOC: EDBD 07:43 → ER 07:43 → TELE 17:31 → ER 17:33 → TELE-WESTW 21:07
PROVIDERS: ADMIT Nurse Practitioner; ATTEND Nurse Practitioner
DX: E86.0 Dehydration (principal); J44.9 Chronic obstructive pulmonary disease, unspecified; I16.0 Hypertensive urgency; Z51.5 Encounter for palliative care; E87.6 Hypokalemia; R19.7 Diarrhea, unspecified; Z86.73 Personal history of transient ischemic attack (TIA), and cerebral infarction without residual deficits; Z79.899 Other long term (current) drug therapy; Z87.891 Personal history of nicotine dependence; W18.39XA Other fall on same level, initial encounter; Y93.89 Activity, other specified; Y92.89 Other specified places as the place of occurrence of the external cause; Y99.8 Other external cause status
CPT/HCPCS: 36415; 70450; 71045; 72125; 72128; 80048; 80053; 80320; 81001; 84484; 85025; 87086; 93005; 97110; 97116; 97163; 97530; 99291; G0378

== ENCOUNTER 2024-09-14 17:28 | Inpatient (IN) | payer OTHER ==
[~2024-09-14] VITALS: Ht 149.9 cm; Wt 72.3 kg
[~2024-09-14 17:28] MED LIST: ALPR1TAB7 PO; ASPI-717 PO; DICY10CA PO; DOCU-94 PO; FURO20TA3 PO; HYDR25TA4 PO; METO25TA5 PO; OXY5T PO; ROPI1TAB78 PO; ROSU10TA16 PO
--- NOTE | 2024-09-14 17:52 | ED.PDOC ---
History of Present Illness HPI Comments 78 year old female brought in by EMS presents to the ED with a chief complaint of generalized weakness onset 2 weeks. Per EMS, patient has been at hospice care for about 2 weeks and since her arrival she has been experiencing generalized weakness. Nursing staff called EMS due to patient being on 5L and O2 sat was 88%. Other than generalized weakness patient has no other complaints. Denies chest pain, shortness of breath, headache, dizziness, nausea, vomiting, diarrhea. No other symptoms or modifying factors present at this time. Chief Complaint: General Weakness Time Seen by MD: 17:45 Reviewed Notes: Medications, Allergies Allergies: Coded Allergies: Iodine (Verified Allergy, Unknown, 06/25/24) Sulfa Antibiotics (Verified Allergy, Unknown, 06/25/24) Home Meds Active Scripts Dicyclomine Hcl (BENTYL CAPSULE) 10 Mg Cp, 20 MG PO QID for 30 Days, #120 CAP Prov:DANN LOPEZ Fatuma [employer]PERATIONS [employer] 06/27/24 Reported Medications Oxycodone Hcl (OXYCODONE HCL) 5 Mg Tb, 5 MG PO PRN, TAB 06/27/24 Alprazolam (Alprazolam) 1 Mg Tab, 1 MG PO PRN, TAB 06/27/24 Ropinirole Hydrochloride (Ropinirole Hcl) 1 Mg Tab, 1 MG PO DAILY, TAB 06/26/24 Docusate Sodium (Colace) 100 Mg Cap, 1 CAP PO DAILY for CONSTIPATION, #30 CAP 06/26/24 Hydrochlorothiazide (Hydrochlorothiazide) 25 Mg Tab, 1 TAB PO DAILY, #30 TAB 5 Refills 06/26/24 Rosuvastatin Calcium (Crestor) 10 Mg Tab, 1 TAB PO DAILY, #30 TAB 5 Refills 06/26/24 Metoprolol Tartrate (Metoprolol Tartrate) 25 Mg Tab, 1 TAB PO BID, #180 TAB 1 Refill 06/26/24 Furosemide (Furosemide) 20 Mg Tab, 1 TAB PO BID, #90 TAB 1 Refill 06/26/24 Aspirin Buffered (Parmjit Carb-Mag (Aspirin 325 mg) 1 Tab Tab, 1 TAB PO DAILY, TAB 06/26/24 Information Source: Patient, Emergency Med Personnel Mode of Arrival: EMS Severity: Moderate Timing: Weeks Duration: Since onset Prehospital treatment: Oxygen Past Medical History PAST MEDICAL HISTORY: COPD, CVA, HTN Past Medical History (Other): IBS Surgical History: Unknown METER TESTER PRIMARY History: Denies all METER TESTER PRIMARY Hx Family History Family History: Reviewed,noncontributory to illness Social History Smoker: Quit Less Than 1 Year, Cigarettes Alcohol: Denies ETOH Use Drugs: Denies Drug Use Lives In: Assisted Care Constitutional: reports: weakness Neurological: reports: weakness Physical Exam General Appearance: No Apparent Distress, Normal HEENT: Normal ENT Inspection, Pharynx Normal, TMs Normal Neck: Full Range of Motion, Non-Tender, Normal, Normal Inspection Respiratory: Chest Non-Tender, Lungs Clear, No Accessory Muscle Use, No Respiratory Distress, Normal Breath Sounds Cardiovascular: No Edema, No JVD, No Murmur, No Gallop, Normal Peripheral Pulses, Regular Rate/Rhythm Breast Exam: Deferred Gastrointestinal: No Organomegaly, Non Tender, No Pulsatile Mass, Normal Bowel Sounds, Soft Genitalia: Deferred Pelvic: Deferred Rectal: Deferred Extremities: No calf tenderness, Normal capillary refill, Normal inspection, Normal range of motion, Non-tender, No pedal edema Musculoskeletal : Apperance: Normal Neurologic: Alert, pullman car clerk II-XII nml as Tested, No Motor Deficits, Normal Affect, Normal Mood, No Sensory Deficits Cerebellar Function: Normal Reflexes: Normal Skin: Dry, Normal Color, Warm Lymphatic: No Adenopathy Was a procedure done? Was a procedure done?: No Differential Dx Considerations may include: pneumonia, acs, uti, pe, failure to thrive, progressive weakness, deconditioning X-Ray, Labs, Meds, VS Vital Signs Date Time Temp Pulse Resp B/P (MAP) Pulse Ox O2 Delivery O2 Flow Rate FiO2 09/14/24 20:12 75 09/14/24 19:30 79 23 95 Nasal Cannula* 2 28 09/14/24 19:00 98.1 79 23 101/61 (74) 97 98.1 09/14/24 18:39 97 Nasal Cannula* 4 36 09/14/24 18:35 86 16 97 Nasal Cannula* 4 36 09/14/24 18:24 69 09/14/24 18:00 98.2 68 16 103/60 (74) 97 98.2 09/14/24 17:49 18 99 Nasal Cannula* 5 40 09/14/24 17:44 82 09/14/24 17:42 98.3 70 18 129/85 (100) 99 Lab Test 09/14/24 20:11 2/22/25 18:37 Range/Units White Blood Count 12.2 H 4.4-10.8 10^3/uL Red Blood Count 4.25 4.0-5.20 10^6/uL Hemoglobin 13.9 12.2-16.2 g/dL Hematocrit 41.1 36.0-46.0 % Mean Corpuscular Volume 96.8 80.0-100.0 fL Mean Corpuscular Hemoglobin 32.7 H 28.0-32.0 pg Mean Corpuscular Hemoglobin Concent 33.8 32.0-36.0 g/dL Red Cell Distribution Width 14.8 H 11.8-14.3 % Platelet Count 444 140-450 10^3/uL Mean Platelet Volume 6.8 L 6.9-10.8 fL Neutrophils (%) (Auto) 69.2 37.0-80.0 % Lymphocytes (%) (Auto) 18.4 10.0-50.0 % Monocytes (%) (Auto) 9.4 0.0-12.0 % Eosinophils (%) (Auto) 2.0 0.0-7.0 % Basophils (%) (Auto) 1.0 0.0-2.0 % Neutrophils # (Auto) 8.4 1.6-8.6 10 ^3/uL Lymphocytes # (Auto) 2.2 0.4-5.4 10 ^3/uL Monocytes # (Auto) 1.1 0-1.3 10 ^3/uL Eosinophils # (Auto) 0.2 0-0.8 10 ^3/uL Basophils # (Auto) 0.1 0-0.2 10 ^3/uL Nucleated Red Blood Cells 0.0 % Sodium Level 134 L 136-145 mmol/L Potassium Level 2.3 *L 3.5-5.1 mmol/L Chloride Level 82 L 98-107 mmol/L Carbon Dioxide Level > 40 *H 20-31 mmol/L Anion Gap 11.88189 5-15 Blood Urea Nitrogen 28 H 9-23 mg/dL Creatinine 0.95 0.550-1.02 mg/dL Glomerular Filtration Rate Calc 61 >90 mL/min BUN/Creatinine Ratio 29.5 H 10.0-20.0 Serum Glucose 124 H 74-106 mg/dL Calcium Level 10.2 8.7-10.4 mg/dL Troponin I High Sensitivity 25 </=34 ng/L POC Glucose 155 H 70-106 mg/dl Time of 1ST Reevaluation: 18:15 Reevaluation 1ST: Unchanged Time of 2ND Reevaluation: 20:08 Reevaluation 2ND: Unchanged Patient Education/Counseling: Diagnosis, Treatment, Prognosis, Need For Follow Up Family Education/Counseling: Diagnosis, Treatment, Prognosis, Need For Follow Up Additional Information i called pt's daughter and spoke to her and her . according to them, pt has end stage COPD and is on hospice for this. she is on 3.5Lo2 24 hours. she has been in hospice for 6weeks and they have increased her oxycodone and xanax, despite of the family weaning her down, since she kept falling. they feel pt needs to be at another facility that can care for her, since they also have not noticed any changes and are not sure why the staff called 911. the staff report that they cannot wake pt up and her O2 saturation was 88%. however, upon arrival, pt is alert, oriented and saturation at 4L in the high 90% pt will be admitted for SW eval for the weakness and evaluate for a different facility placement. pt has a sacral decubitus ulcer, so may not be receiving optimal care at the facility Departure 1 Departure Time of Disposition: 21:07 Impression: Primary Impression: Poor conditioning Additional Impressions: Generalized weakness Chronic respiratory failure Qualified Codes: J96.11 - Chronic respiratory failure with hypoxia; J96.12 - Chronic respiratory failure with hypercapnia Decubital ulcer Qualified Codes: L89.151 - Pressure ulcer of sacral region, stage 1 Disposition: ADMITTED INPATIENT Admit to: Med Surg Condition: Stable Discharged With: Self, Relative Critical Care Note Critical Care Time?: No Stability Stability form required: No I personally scribed for MARY GRIFFITH MD ([email or web address]) on 09/14/24 at 17:52. Electronically submitted by Marie Collins ([email or web address]). MARY GRIFFITH MD Sep 14, 2024 17:52
[2024-09-14 18:35] VITALS: PULSE 86; RESP 16; O2SAT 97
[2024-09-14 19:30] VITALS: PULSE 79; RESP 23; O2SAT 95
--- NOTE | 2024-09-14 20:13 | DVH ---
CHEST RADIOGRAPH Indication: weakness Technique: Single frontal view of the chest was obtained COMPARISON: XY CHEST PORTABLE on DOS: 06/25/24 FINDINGS: Lines and Tubes: None Lungs: Clear Pleura: No effusion. No pneumothorax. Cardiomediastinal contours: Unremarkable Bones: Unremarkable IMPRESSION: No acute disease.
[2024-09-14 20:22] LABS: Basophils # (auto) 0.1 10 ^3/uL (0-0.2); Eosinophils # (auto) 0.2 10 ^3/uL (0-0.8); Hematocrit 41.1 % (36.0-46.0); Hemoglobin 13.9 g/dL (12.2-16.2); Lymphocytes # (auto) 2.2 10 ^3/uL (0.4-5.4); Lymphocytes % (auto) 18.4 % (10.0-50.0); Mean Corpuscular Hemoglobin 32.7 pg (28.0-32.0); Mean Corpuscular Hgb Conc. 33.8 g/dL (32.0-36.0); Mean Corpuscular Volume 96.8 fL (80.0-100.0); Monocytes # (auto) 1.1 10 ^3/uL (0-1.3); Monocytes % (auto) 9.4 % (0.0-12.0); Neutrophils # (auto) 8.4 10 ^3/uL (1.6-8.6); Neutrophils % (auto) 69.2 % (37.0-80.0); Platelet Count (auto) 444 10^3/uL (140-450); Red Blood Cells 4.25 10^6/uL (4.0-5.20); Red Cell Distribution Width 14.8 % (11.8-14.3); White Blood Cell 12.2 10^3/uL (4.4-10.8)
[2024-09-14 20:32] LABS: Calcium 10.2 mg/dL (8.7-10.4)
[2024-09-14 20:37] LABS: BUN/Creatinine Ratio 29.5 (10.0-20.0)
[2024-09-14 20:46] LABS: Anion Gap 11.99999 (5-15); Blood Urea Nitrogen 28 mg/dL (9-23); Chloride 82 mmol/L (98-107); Glucose 124 mg/dL (74-106); Sodium 134 mmol/L (136-145)
[2024-09-14 20:50] LABS: Carbon Dioxide > 40 mmol/L (20-31); Potassium 2.3 mmol/L (3.5-5.1)
[2024-09-14 20:53] LABS: COVID19 ANTIGEN SOFIA FIA NEGATIVE (NEGATIVE); Rapid Influenza A Negative (Negative)
[2024-09-14 20:55] LABS: Rapid Influenza B Positive (Negative)
[2024-09-14 21:25] LABS: Urine Bacteria MANY /hpf (None Seen); Urine Blood 1+ /uL (Negative); Urine Clarity Ex.Turbid (Clear); Urine Color Light-Brown (Yellow); Urine Mucus FEW (None Seen); Urine Protein, UAD TRACE (Negative); Urine Specific Gravity 1.008 (1.001-1.035); Urine Squamous Epithelial Cell FEW /hpf (<5); Urine Urobilinogen Normal (Negative); Urine WBC 893 /HPF (0-5); Urine WBC Clumps PRESENT /hpf (None Seen); Urine pH 5.5 (5.0-9.0)
[2024-09-14] MEDS ORDERED: ONDANSETRON HCL 4 MG/2 ML VIAL IV PRN (22:00)
[2024-09-14] MEDS ORDERED: DOCUSATE SOD 100 MG CAP PO PRN (22:00)
[2024-09-14] MEDS: POTASSIUM CHL 20 Meq TABLET PO ONE (22:00)
[2024-09-14] MEDS: ATORVASTATIN 20 MG TAB PO SCH (22:40)
[2024-09-14] MEDS: cefTRIAXone 1GM/50ML D5W 50 ML IV ONE (22:40)
[2024-09-14] MEDS: SODIUM CHLOR 0.9% PF (SALINE LOCK) 10ML VIAL/SYR IV SCH (22:40)
[2024-09-14] MEDS ORDERED: MORPHINE SULFATE INJ 2 MG/ml SYRG IV PRN (23:45)
[2024-09-14] MEDS ORDERED: NITROGLYCERIN 0.4 MG SL TAB SL PRN (23:45)
--- NOTE | 2024-09-14 23:45 | DVHHP2 ---
History of Present Illness Reason for Visit: Generalized weakness History of Present Illness The patient is a 78-year-old female with past medical history of CVA, COPD, hypertension, and IBS who presented to [facility] ED with complaint of generalized weakness for the past 2 weeks. As reported by EMS, patient has been at hospice care for about 2 weeks and has been experiencing generalized weakness. Nursing staff called EMS due to patient being on 5L and O2 sat was 88%. Patient was seen and evaluated in the ED, laboratory data shows WBC 12.2, platelets 444, sodium 134, potassium 2.3, BUN 28, creatinine 0.95, GFR 61, glucose 124, troponin 25, serology reports positive for influenza B. Urinalysis positive for urinary tract infection. Chest x-ray show no acute disease. Patient was started on IV antibiotic regimen Rocephin, please see medication orders section in the computer. On my assessment, patient denied chest pain, no headache, no dizziness, no diarrhea, no nausea, no vomiting, no fever, no chills. Patient was admitted for further evaluation and medical management. Past Medical History COPD, CVA, HTN, IBS Past Surgical History No surgical history on file Family History Reviewed, noncontributory to the management of this case. Past Social History Patient lives at assisted care living facility, quit smoking cigarettes less than 1 year, denies alcohol or illicit drugs abuse. Review of Systems Constitutional: Yes: Weakness; No: Fever, Chills, Sweats, Malaise, Other Eyes: No: Pain, Vision change, Conjunctivae inflammation, Eyelid inflammation, Other, Redness ENT: No: Ear pain, Ear discharge, Nose pain, Nose discharge, Nose congestion, Mouth pain, Mouth swelling, Throat pain, Throat swelling, Other Respiratory: No: Cough, Dry, Shortness of breath, SOB with excertion, Wheezing, Hemoptysis, Pleuritic Pain, Sputum, Wheezing, Other Cardiovascular: No: Chest Pain, Palpitations, Orthopnea, Paroxysmal Noc. Dyspnea, Edema, Lt Headedness, Other Gastrointestinal: No: Nausea, Vomiting, Abdominal Pain, Diarrhea, Constipation, Melena, Hematochezia, Other Genitourinary: No Dysuria, No Frequency, No Incontinence, No Hematuria, No Retention, No Other Musculoskeletal: No: other, neck pain, shoulder pain, arm pain, back pain, hand pain, leg pain, foot pain Skin: No: Rash, Lesions, Jaundice, Bruising, Other Neurological: Weakness; No: Numbness, Incoordination, Change in speech, Confusion, Seizures, Other Allergies: Coded Allergies: Iodine (Verified Allergy, Unknown, 06/25/24) Sulfa Antibiotics (Verified Allergy, Unknown, 06/25/24) Medications Current Medications Medications Dose Ordered Sig/Ileana Route Start Time Stop Time Status Last Admin Dose Admin Ceftriaxone Sodium 50 ml @ 100 mls/hr DAILY@09 IV 09/15/24 09:00 Aspirin 81 mg DAILY PO 09/15/24 10:00 Atorvastatin Calcium 20 mg HS PO 09/14/24 22:00 09/14/24 22:40 20 MG Hydralazine HCl 10 mg Q6HP PRN IV 09/14/24 22:00 Sodium Chloride 10 ml Q8HR IV 09/14/24 22:00 09/14/24 22:40 10 ML Acetaminophen/ Hydrocodone Bitart 1 tab Q4HP PRN PO 09/14/24 22:00 Ondansetron HCl 4 mg Q4HP PRN IV 09/14/24 22:00 Docusate Sodium 100 mg BIDPRN PRN PO 09/14/24 22:00 Acetaminophen 650 mg Q6HP PRN PO 09/14/24 22:00 Exam Vital Signs Vital Signs Date Time Temp Pulse Resp B/P (MAP) Pulse Ox O2 Delivery O2 Flow Rate FiO2 09/14/24 23:00 98.3 90 18 110/70 (83) 92 98.3 09/14/24 19:30 Nasal Cannula* 2 28 General Appearance: Alert, Oriented X3, Cooperative, No acute distress HEENT: Atraumatic, PERRLA, EOMI, Mucous membr. moist/pink Respiratory: Clear to auscultation, Normal air movement Cardiovascular: Regular rate, Normal S1, Normal S2, No murmurs Abdominal: Normal bowel sounds, Soft, No tenderness, No hepatospenomegaly, No masses Extremities: No clubbing, No cyanosis, No edema, Normal pulses, No tenderness/swelling Skin: No rashes, No breakdown, No significant lesion Neuro: Normal gait, Normal speech, Strength at 5/5 X4 ext, Normal tone, Sensation intact, Cranial nerves 3-12 NL, Reflexes 2+ Psych/Mental Status: Mental status NL, Mood NL Labs/Xrays Labs Test 09/14/24 21:22 09/14/24 21:20 09/14/24 20:11 09/14/24 18:37 Range/Units Urine Color Light-brown Yellow Urine Clarity Ex.turbid Clear Urine pH 5.5 5.0-9.0 Urine Specific [place] 1.008 1.001-1.035 Urine Protein Trace H Negative Urine Ketones Negative Negative Urine Blood 1+ H Negative /uL Urine Nitrite Negative Negative Urine Bilirubin Negative Negative Urine Urobilinogen Normal Negative mg/dL Urine Leukocyte Esterase 3+ Negative /uL Urine RBC 93 0 - 4 /hpf Urine WBC Clumps Present None Seen /hpf Urine Microscopic WBC 893 H 0-5 /HPF Urine Squamous Epithelial Cells Few <5 /hpf Urine Bacteria Many H None Seen /hpf Urine Mucus Few None Seen Urine Glucose Normal Normal mg/dL Troponin I High Sensitivity 20 </=34 ng/L Influenza Type A Antigen Negative Negative Influenza Type B Antigen Positive Negative SARS-CoV-2 Antigen (Rapid) Negative NEGATIVE White Blood Count 12.2 H 4.4-10.8 10^3/uL Red Blood Count 4.25 4.0-5.20 10^6/uL Hemoglobin 13.9 12.2-16.2 g/dL Hematocrit 41.1 36.0-46.0 % Mean Corpuscular Volume 96.8 80.0-100.0 fL Mean Corpuscular Hemoglobin 32.7 H 28.0-32.0 pg Mean Corpuscular Hemoglobin Concent 33.8 32.0-36.0 g/dL Red Cell Distribution Width 14.8 H 11.8-14.3 % Platelet Count 444 140-450 10^3/uL Mean Platelet Volume 6.8 L 6.9-10.8 fL Neutrophils (%) (Auto) 69.2 37.0-80.0 % Lymphocytes (%) (Auto) 18.4 10.0-50.0 % Monocytes (%) (Auto) 9.4 0.0-12.0 % Eosinophils (%) (Auto) 2.0 0.0-7.0 % Basophils (%) (Auto) 1.0 0.0-2.0 % Neutrophils # (Auto) 8.4 1.6-8.6 10 ^3/uL Lymphocytes # (Auto) 2.2 0.4-5.4 10 ^3/uL Monocytes # (Auto) 1.1 0-1.3 10 ^3/uL Eosinophils # (Auto) 0.2 0-0.8 10 ^3/uL Basophils # (Auto) 0.1 0-0.2 10 ^3/uL Nucleated Red Blood Cells 0.0 % Sodium Level 134 L 136-145 mmol/L Potassium Level 2.3 *L 3.5-5.1 mmol/L Chloride Level 82 L 98-107 mmol/L Carbon Dioxide Level > 40 *H 20-31 mmol/L Anion Gap 11.44813 5-15 Blood Urea Nitrogen 28 H 9-23 mg/dL Creatinine 0.95 0.550-1.02 mg/dL Glomerular Filtration Rate Calc 61 >90 mL/min BUN/Creatinine Ratio 29.5 H 10.0-20.0 Serum Glucose 124 H 74-106 mg/dL Calcium Level 10.2 8.7-10.4 mg/dL POC Glucose 155 H 70-106 mg/dl PATIENT: CHANDAN BONILLA ACCT: [id number] UNIT: [id number] : 1945 LOC: ER ROOM / BED: / AGE / SEX: 78 / F ADM STATUS: REG ER SERVICE 55 ORDERING PHYSICIAN: MARY GRIFFITH MD PROCEDURE(s): CXRP - CHEST PORTABLE REASON: weakness ORDER NUMBER(s): [id number], ACCESSION NUMBER(s): [id number] CHEST RADIOGRAPH Indication: weakness Technique: Single frontal view of the chest was obtained COMPARISON: XY CHEST PORTABLE on DOS: 06/25/24 FINDINGS: Lines and Tubes: None Lungs: Clear Pleura: No effusion. o pneumothorax. Cardiomediastinal contours: Unremarkable Bones: Unremarkable IMPRESSION: No acute disease. Assessment/Plan Assessment/Plan Generalized weakness Poor conditioning Urinary tract infection Chronic respiratory failure Chronic respiratory failure with hypoxia Chronic respiratory failure with hypercapnia Decubital ulcer Pressure ulcer of sacral region, stage 1 Plan 1. Admit to telemetry unit 2. Breathing treatment 3. Pain control management 4. IV antibiotic management 5. Management of fluids and electrolytes 6. Consultation for hospitalist/wound care 7. Diagnostic test chest x-ray 8. DVT prophylaxis-on aspirin 9. Repeat labs CBC, CMP in a.m. 10. Home medication reviewed and reconciled 11. Continue with current medical management 12. Treatment plan discussed with patient and RN. Patient verbalized understanding. Plan discussed with: Patient, Other (RN) My Orders Orders - RADHA ZARATE DNP Procedure Category Date Status Time Urine Bacterial FRANCISCO 09/14/24 In Process Culture 21:51 Ceftriaxone 1gm/50ml PHA 09/15/24 In Process D5w (Rocephin) 09:00 Aspirin Tablet PHA 09/15/24 In Process 10:00 Atorvastatin (Lipitor) PHA 09/14/24 In Process 22:00 Hydralazine Injection PHA 09/14/24 In Process (Apresoline Inject 22:00 Allergies OLESYA 09/14/24 In Process 21:51 Code Status CODE 09/14/24 Transmitted 21:51 Sodium Chloride Lock PHA 09/14/24 In Process (Saline Lock Ns) 22:00 Oxygen Per Hour RT 09/14/24 Transmitted 21:51 Hydrocodone-Acet PHA 09/14/24 In Process 5/325mg Tab (Rover 22:00 Ondansetron Hcl PHA 09/14/24 In Process (Zofran) 22:00 Docusate Sodium PHA 09/14/24 In Process Capsule (Colace 22:00 Complete Blood Count LAB 09/15/24 Verified 04:00 Comprehensive LAB 09/15/24 Verified Metabolic Panel 04:00 Cardiac DIET 09/15/24 Transmitted Diet-2gna,Lofat,Lochol Breakfast Condition: Serious OLESYA 09/14/24 In Process 21:51 Acetaminophen Tablet PHA 09/14/24 In Process (Tylenol Tablet) 22:00 Bedrest With Bathroom OLESYA 09/14/24 In Process Privileg 21:51 Sequential OLESYA 09/14/24 In Process Compression Device Problem List: (1) Generalized weakness (2) Poor conditioning (3) Decubital ulcer (4) Chronic respiratory failure with hypoxia (5) Urinary tract infection (6) Chronic respiratory failure with hypercapnia (7) Pressure ulcer of sacral region, stage 1 Date of Service: Sep 14, 2024 Billing Provider: RADHA ZARATE DNP Common Visit Codes: [id number] INP/OBS CARE (HIGH) RADHA ZARATE DNP Sep 14, 2024 23:45
[2024-09-15 05:33] LABS: Basophils # (auto) 0.1 10 ^3/uL (0-0.2); Basophils % (auto) 0.6 % (0.0-2.0); Eosinophils # (auto) 0.2 10 ^3/uL (0-0.8); Eosinophils % (auto) 2.3 % (0.0-7.0); Hematocrit 40.8 % (36.0-46.0); Hemoglobin 13.5 g/dL (12.2-16.2); Lymphocytes % (auto) 22.2 % (10.0-50.0); Mean Corpuscular Volume 96.9 fL (80.0-100.0); Monocytes % (auto) 10.9 % (0.0-12.0); Neutrophils # (auto) 5.6 10 ^3/uL (1.6-8.6); Nucleated Red Blood Cells % 0.2 %; Platelet Count (auto) 381 10^3/uL (140-450); Red Blood Cells 4.21 10^6/uL (4.0-5.20); Red Cell Distribution Width 14.7 % (11.8-14.3); White Blood Cell 8.8 10^3/uL (4.4-10.8)
[2024-09-15 05:44] LABS: Alanine Aminotransferase 18 U/L (7-40); Albumin 3.7 g/dL (3.2-4.8); Alkaline Phosphatase 71 U/L (46-116); Aspartate Aminotransferase 19 U/L (13-40); BUN/Creatinine Ratio 32.4 (10.0-20.0); Bilirubin, Total 0.5 mg/dL (0.2-1.0); Blood Urea Nitrogen 22 mg/dL (9-23); Calcium 9.8 mg/dL (8.7-10.4)
[2024-09-15 05:45] LABS: Total Protein 6.6 g/dL (5.7-8.2)
[2024-09-15 06:13] LABS: Chloride 84 mmol/L (98-107); Potassium 2.9 mmol/L (3.5-5.1); Sodium 134 mmol/L (136-145)
[2024-09-15 06:16] LABS: Anion Gap 9.99999 (5-15); Carbon Dioxide > 40 mmol/L (20-31); Glucose 138 mg/dL (74-106)
[2024-09-15] MEDS: POTASSIUM CHL 20 Meq TABLET PO ONE (06:55)
[2024-09-15] MEDS: cefTRIAXone 1GM/50ML D5W 50 ML IV SCH (09:40)
[2024-09-15 10:20] VITALS: PULSE 93; RESP 16; O2SAT 94
[2024-09-15] MEDS: ASPirin 81 mg TAB PO SCH (10:47)
[2024-09-15] MEDS: HYDROcodone-ACET 5/325MG TAB PO PRN (11:05)
--- NOTE | 2024-09-15 12:44 | DVHPN2 ---
Reviewed: Care Plan, H&P, Labs, Medications, Previous Orders, Radiology Changes from previous H/P or p: No Changes Eyes: No Pain, No Vision change, No Conjunctivae inflammation, No Eyelid inflammation, No Other, No Redness ENT: No Ear pain, No Ear discharge, No Nose pain, No Nose discharge, No Nose congestion, No Mouth pain, No Mouth swelling, No Throat pain, No Throat swelling, No Other Cardiovascular: No Chest Pain, No Palpitations, No Orthopnea, No Paroxysmal Noc. Dyspnea, No Edema, No Lt Headedness, No Other Respiratory: No Cough, No Dry, No Shortness of breath, No SOB with excertion, No Wheezing, No Hemoptysis, No Pleuritic Pain, No Sputum, No Other Gastrointestinal: No Nausea, No Vomiting, No Abdominal Pain, No Diarrhea, No Constipation, No Melena, No Hematochezia, No Other Genitourinary: No Dysuria, No Frequency, No Incontinence, No Hematuria, No Retention, No Other Musculoskeletal: No other, No neck pain, No shoulder pain, No arm pain, No back pain, No hand pain, No leg pain, No foot pain Skin: No Rash, No Lesions, No Jaundice, No Bruising, No Other Objective Vitals Vital Signs Date Time Temp Pulse Resp B/P (MAP) Pulse Ox O2 Delivery O2 Flow Rate FiO2 09/15/24 11:41 105 09/15/24 10:20 16 94 Nasal Cannula* 1 24 09/15/24 10:20 117/82 (94) 09/15/24 07:00 98.1 98.1 Intake/Output Intake and Output 09/15/24 07:00 Intake Total 100 ml Output Total 1200 ml Balance -1100 ml Intake IV Total 100 ml Output Urine Total 1200 ml # Voids 1 Medications Current Medications Medications Dose Ordered Sig/Ileana Route Start Time Stop Time Status Last Admin Dose Admin Ceftriaxone Sodium 50 ml @ 100 mls/hr DAILY@09 IV 09/15/24 09:00 09/15/24 09:40 100 MLS/HR Aspirin 81 mg DAILY PO 09/15/24 10:00 09/15/24 10:47 81 MG Atorvastatin Calcium 20 mg HS PO 09/14/24 22:00 09/14/24 22:40 20 MG Hydralazine HCl 10 mg Q6HP PRN IV 09/14/24 22:00 Sodium Chloride 10 ml Q8HR IV 09/14/24 22:00 09/15/24 05:19 10 ML Acetaminophen/ Hydrocodone Bitart 1 tab Q4HP PRN PO 09/14/24 22:00 09/15/24 11:05 1 TAB Ondansetron HCl 4 mg Q4HP PRN IV 09/14/24 22:00 Docusate Sodium 100 mg BIDPRN PRN PO 09/14/24 22:00 Acetaminophen 650 mg Q6HP PRN PO 09/14/24 22:00 Nitroglycerin 0.4 mg Q5MINP PRN SL 09/14/24 23:45 Morphine Sulfate 2 mg Q30M PRN IV 09/14/24 23:45 Laboratory Results Laboratory Tests 09/15/24 05:10 Chemistry Test 09/14/24 20:11 09/15/24 05:10 Calcium Level 10.2 mg/dL (8.7-10.4) 9.8 mg/dL (8.7-10.4) Albumin 3.7 g/dL (3.2-4.8) Total Protein 6.6 g/dL (5.7-8.2) LFT Test 09/15/24 05:10 Alanine Aminotransferase (ALT) 18 U/L (7-40) Alkaline Phosphatase 71 U/L (46-116) Aspartate Amino Transferase (AST) 19 U/L (13-40) Total Bilirubin 0.5 mg/dL (0.2-1.0) Urinalysis Test 09/14/24 21:22 Urine Color Light-brown (Yellow) Urine Clarity Ex.turbid (Clear) Urine pH 5.5 (5.0-9.0) Urine Specific [place] 1.008 (1.001-1.035) Urine Protein Trace (Negative) H Urine Ketones Negative (Negative) Urine Blood 1+ /uL (Negative) H Urine Nitrite Negative (Negative) Urine Bilirubin Negative (Negative) Urine Urobilinogen Normal mg/dL (Negative) Urine Leukocyte Esterase 3+ /uL (Negative) Urine RBC 93 /hpf (0 - 4) Urine WBC Clumps Present /hpf (None Seen) Urine Microscopic WBC 893 /HPF (0-5) H Urine Squamous Epithelial Cells Few /hpf (<5) Urine Bacteria Many /hpf (None Seen) H Urine Mucus Few (None Seen) Urine Glucose Normal mg/dL (Normal) Labs and/or images reviewed: Labs reviewed by me, Image(s) reviewed by me Assessment/Plan Assessment/Plan Septic shock secondary to acute urinary tract infection: Blood cultures urine cultures Rocephin Acute urinary tract infection History of irritable bowel syndrome Acute hypokalemia potassium 2.3 replace potassium Acute metabolic alkalosis: Diamox 250 mg IV daily Type B flu positive: Tamiflu COVID test negative Acute COPD exacerbation Hypertension Moderate malnutrition History of CVA Pressure Ulcer sacrum present on admission: Wound consult Patient was on hospice for the last two weeks Hospice revoked Time spent 70 minutes Advanced care planning time 20 minutes Patient is full code Plan discussed with: Patient Date of Service: Sep 15, 2024 Billing Provider: SHAYE BURT MD Common Visit Codes: [id number] CARE 30-74 MIN SHAYE BURT MD Sep 15, 2024 12:44
[2024-09-15] MEDS: acetaZOLAMIDE SODIUM 500 MG VL IV ONE (13:00)
[2024-09-15] MEDS: SODIUM CHLORIDE 0.9% 1,000 ML IV SCH (17:30)
[2024-09-15] MEDS: SODIUM CHLORIDE 0.9% 1,000 ML IV ONE (17:32)
[2024-09-15] MEDS: ALBUTEROL SULF 2.5 MG/0.5ML(0.5%) NEB SOLN NEB ONE (18:02)
[2024-09-15 19:40] VITALS: O2SAT 98
[2024-09-15 22:33] VITALS: BP 103/45; PULSE 103; RESP 15; TEMP 97.9; O2SAT 96
[2024-09-15] MEDS: OSELTAMIVIR 75 MG CAP PO SCH (23:24)
[2024-09-16] VITALS (7 sets, daily range): BP systolic 110–145; BP diastolic 56–69; PULSE 79–120; RESP 16–20; TEMP 97.9–98.5; O2SAT 96–99
--- NOTE | 2024-09-16 09:15 | DVHPN2 ---
Reviewed: Care Plan, H&P, Labs, Medications, Previous Orders, Radiology Changes from previous H/P or p: No Changes Eyes: No Pain, No Vision change, No Conjunctivae inflammation, No Eyelid inflammation, No Other, No Redness ENT: No Ear pain, No Ear discharge, No Nose pain, No Nose discharge, No Nose congestion, No Mouth pain, No Mouth swelling, No Throat pain, No Throat swelling, No Other Cardiovascular: No Chest Pain, No Palpitations, No Orthopnea, No Paroxysmal Noc. Dyspnea, No Edema, No Lt Headedness, No Other Respiratory: No Cough, No Dry, No Shortness of breath, No SOB with excertion, No Wheezing, No Hemoptysis, No Pleuritic Pain, No Sputum, No Other Gastrointestinal: No Nausea, No Vomiting, No Abdominal Pain, No Diarrhea, No Constipation, No Melena, No Hematochezia, No Other Genitourinary: No Dysuria, No Frequency, No Incontinence, No Hematuria, No Retention, No Other Musculoskeletal: No other, No neck pain, No shoulder pain, No arm pain, No back pain, No hand pain, No leg pain, No foot pain Skin: No Rash, No Lesions, No Jaundice, No Bruising, No Other Objective Vitals Vital Signs Date Time Temp Pulse Resp B/P (MAP) Pulse Ox O2 Delivery O2 Flow Rate FiO2 09/16/24 08:10 Nasal Cannula* 3 32 09/16/24 05:00 98.0 95 16 110/57 (74) 97 98.0 Intake/Output Intake and Output 09/16/24 07:00 Intake Total 780 ml Output Total 1250 ml Balance -470 ml Intake Oral 530 ml IV Total 250 ml Output Urine Total 1250 ml Medications Current Medications Medications Dose Ordered Sig/Ileana Route Start Time Stop Time Status Last Admin Dose Admin Ceftriaxone Sodium 50 ml @ 100 mls/hr DAILY@09 IV 09/15/24 09:00 09/16/24 08:47 100 MLS/HR Aspirin 81 mg DAILY PO 09/15/24 10:00 09/16/24 08:49 81 MG Atorvastatin Calcium 20 mg HS PO 09/14/24 22:00 09/15/24 23:24 20 MG Hydralazine HCl 10 mg Q6HP PRN IV 09/14/24 22:00 Sodium Chloride 10 ml Q8HR IV 09/14/24 22:00 09/16/24 06:00 10 ML Acetaminophen/ Hydrocodone Bitart 1 tab Q4HP PRN PO 09/14/24 22:00 09/15/24 11:05 1 TAB Ondansetron HCl 4 mg Q4HP PRN IV 09/14/24 22:00 Docusate Sodium 100 mg BIDPRN PRN PO 09/14/24 22:00 Acetaminophen 650 mg Q6HP PRN PO 09/14/24 22:00 Nitroglycerin 0.4 mg Q5MINP PRN SL 09/14/24 23:45 Morphine Sulfate 2 mg Q30M PRN IV 09/14/24 23:45 Oseltamivir Phosphate 75 mg Q12HR PO 09/15/24 22:00 09/20/24 21:59 09/16/24 08:50 75 MG Sodium Chloride 1,000 ml @ 100 mls/hr Q10H IV 09/15/24 17:30 Laboratory Results Laboratory Tests 09/15/24 05:10 Urinalysis Test 09/14/24 21:22 Urine Color Light-brown (Yellow) Urine Clarity Ex.turbid (Clear) Urine pH 5.5 (5.0-9.0) Urine Specific [place] 1.008 (1.001-1.035) Urine Protein Trace (Negative) H Urine Ketones Negative (Negative) Urine Blood 1+ /uL (Negative) H Urine Nitrite Negative (Negative) Urine Bilirubin Negative (Negative) Urine Urobilinogen Normal mg/dL (Negative) Urine Leukocyte Esterase 3+ /uL (Negative) Urine RBC 93 /hpf (0 - 4) Urine WBC Clumps Present /hpf (None Seen) Urine Microscopic WBC 893 /HPF (0-5) H Urine Squamous Epithelial Cells Few /hpf (<5) Urine Bacteria Many /hpf (None Seen) H Urine Mucus Few (None Seen) Urine Glucose Normal mg/dL (Normal) Microbiology Microbiology Date/Time Source Procedure Growth Status 09/14/24 21:22 Voided Urine Urine Culture - Preliminary Resulted Labs and/or images reviewed: Labs reviewed by me, Image(s) reviewed by me Assessment/Plan Assessment/Plan Septic shock secondary to acute urinary tract infection: Blood cultures pending, urine cultures mixed, continue Rocephin Acute urinary tract infection History of irritable bowel syndrome Acute hypokalemia potassium 2.3 replace potassium Acute metabolic alkalosis: Diamox 250 mg IV daily Type B flu positive: Tamiflu COVID test negative Acute COPD exacerbation Hypertension Moderate malnutrition History of CVA Pressure Ulcer sacrum present on admission: Wound consult Patient was on hospice for the last two weeks Hospice revoked Time spent 50 minutes Advanced care planning time 20 minutes Patient is full code NELY Daughter Erendira [phone] at bedside Patient is improving more alert today Plan discussed with: Patient My Orders Orders - SHAYE BURT MD Procedure Category Date Status Time Acetazolamide PHA 09/16/24 In Process Injection (Diamox 10:00 Blood Culture FRANCISCO 09/15/24 In Process 12:48 Oseltamivir 75mg PHA 09/15/24 In Process Capsule (Tamiflu 75mg 22:00 Sodium Chloride 0.9% PHA 09/15/24 In Process 17:30 Date of Service: Sep 16, 2024 Billing Provider: SHAYE BURT MD Common Visit Codes: [id number] INP/OBS CARE(HIGH) SHAYE BURT MD Sep 16, 2024 09:15
[2024-09-16] MEDS: acetaZOLAMIDE SODIUM 500 MG VL IV ONE (10:37)
[2024-09-16 10:52] LABS: Basophils # (auto) 0 10 ^3/uL (0-0.2); Basophils % (auto) 0.4 % (0.0-2.0); Eosinophils # (auto) 0.2 10 ^3/uL (0-0.8); Hematocrit 37.5 % (36.0-46.0); Hemoglobin 12.6 g/dL (12.2-16.2); Lymphocytes # (auto) 1.4 10 ^3/uL (0.4-5.4); Lymphocytes % (auto) 14.8 % (10.0-50.0); Mean Corpuscular Hemoglobin 32.8 pg (28.0-32.0); Mean Corpuscular Hgb Conc. 33.5 g/dL (32.0-36.0); Mean Corpuscular Volume 97.8 fL (80.0-100.0); Monocytes # (auto) 0.7 10 ^3/uL (0-1.3); Monocytes % (auto) 7.6 % (0.0-12.0); Neutrophils # (auto) 7.2 10 ^3/uL (1.6-8.6); Neutrophils % (auto) 75.2 % (37.0-80.0); Platelet Count (auto) 376 10^3/uL (140-450); Red Blood Cells 3.84 10^6/uL (4.0-5.20); Red Cell Distribution Width 14.3 % (11.8-14.3); White Blood Cell 9.6 10^3/uL (4.4-10.8)
[2024-09-16 11:17] LABS: Alanine Aminotransferase 23 U/L (7-40); Alkaline Phosphatase 66 U/L (46-116); Calcium 8.9 mg/dL (8.7-10.4)
[2024-09-16 11:18] LABS: Albumin 3.4 g/dL (3.2-4.8); Anion Gap 8 (5-15); Aspartate Aminotransferase 24 U/L (13-40); BUN/Creatinine Ratio 21.1 (10.0-20.0); Blood Urea Nitrogen 12 mg/dL (9-23); Sodium 137 mmol/L (136-145); Total Protein 6.2 g/dL (5.7-8.2)
[2024-09-16 11:20] LABS: Bilirubin, Total 0.3 mg/dL (0.2-1.0); Carbon Dioxide 33 mmol/L (20-31); Chloride 96 mmol/L (98-107); Glucose 201 mg/dL (74-106); Potassium 3.3 mmol/L (3.5-5.1)
--- NOTE | 2024-09-16 11:29 | ECG ---
[facility] Test Date: 2024-09-14 Test Time: 17:42:05 Pat Name: CHANDAN BONILLA Department: ER Room: 0209T A Gender: F Mate First: CONRAD : 1945 Requested By: EMERGENCY EMERGENCY Order Number: [id number] Reading MD: Ernst Duran Measurements Intervals [place] Rate: 141 P: 0 WV: 122 QRS: 46 QRSD: 78 T: 237 QT: 306 QTc: 469 Interpretive Statements Sinus tachycardia Paired ventricular premature complexes Repolarization abnormality, prob rate related Electronically Signed On 09-21-2024 16:43:20 PST by Ernst Duran Please click the below link to view image of tracing.
--- NOTE | 2024-09-16 11:29 | ECG ---
[facility] Test Date: 2024-09-14 Test Time: 17:44:06 Pat Name: CHANDAN BONILLA Department: ER Room: 0209T A Gender: F Hospice Superintendent: CONRAD : 1945 Requested By: MARY GRIFFITH Order Number: [id number] Reading MD: Ernst Duran Measurements Intervals [place] Rate: 82 P: 0 NE: 51 QRS: 46 QRSD: 98 T: 119 QT: 402 QTc: 470 Interpretive Statements Sinus rhythm Multiple premature complexes, vent & supraven Short NE interval Right atrial enlargement Borderline repolarization abnormality Baseline wander in lead(s) V2 Electronically Signed On 09-21-2024 16:43:21 PST by Ernst Duran Please click the below link to view image of tracing.
[2024-09-16] MEDS: POTASSIUM EFFERVESENT TAB 25 MEQ PO ONE (13:28)
[2024-09-16] MEDS: SODIUM CHLORIDE 0.9% 1,000 ML IV SCH (13:28)
[2024-09-17] VITALS (8 sets, daily range): BP systolic 108–149; BP diastolic 59–74; PULSE 80–121; RESP 16–18; TEMP 98.1–99; O2SAT 95–100
--- NOTE | 2024-09-17 09:53 | DVHPN2 ---
Reviewed: Care Plan, H&P, Labs, Medications, Previous Orders, Radiology Changes from previous H/P or p: No Changes Eyes: No Pain, No Vision change, No Conjunctivae inflammation, No Eyelid inflammation, No Other, No Redness ENT: No Ear pain, No Ear discharge, No Nose pain, No Nose discharge, No Nose congestion, No Mouth pain, No Mouth swelling, No Throat pain, No Throat swelling, No Other Cardiovascular: No Chest Pain, No Palpitations, No Orthopnea, No Paroxysmal Noc. Dyspnea, No Edema, No Lt Headedness, No Other Respiratory: No Cough, No Dry, No Shortness of breath, No SOB with excertion, No Wheezing, No Hemoptysis, No Pleuritic Pain, No Sputum, No Other Gastrointestinal: No Nausea, No Vomiting, No Abdominal Pain, No Diarrhea, No Constipation, No Melena, No Hematochezia, No Other Genitourinary: No Dysuria, No Frequency, No Incontinence, No Hematuria, No Retention, No Other Musculoskeletal: No other, No neck pain, No shoulder pain, No arm pain, No back pain, No hand pain, No leg pain, No foot pain Skin: No Rash, No Lesions, No Jaundice, No Bruising, No Other Objective Vitals Vital Signs Date Time Temp Pulse Resp B/P (MAP) Pulse Ox O2 Delivery O2 Flow Rate FiO2 09/17/24 05:00 98.3 80 17 125/72 (89) 100 98.3 09/16/24 20:00 Nasal Cannula* 3 32 Intake/Output Intake and Output 09/17/24 07:00 Intake Total 1610 ml Output Total 1900 ml Balance -290 ml Intake Oral 810 ml IV Total 800 ml Output Urine Total 1900 ml # Bowel Movements 2 Medications Current Medications Medications Dose Ordered Sig/Ileana Route Start Time Stop Time Status Last Admin Dose Admin Ceftriaxone Sodium 50 ml @ 100 mls/hr DAILY@09 IV 09/15/24 09:00 09/17/24 09:22 100 MLS/HR Aspirin 81 mg DAILY PO 09/15/24 10:00 09/17/24 09:22 81 MG Atorvastatin Calcium 20 mg HS PO 09/14/24 22:00 09/16/24 21:54 20 MG Hydralazine HCl 10 mg Q6HP PRN IV 09/14/24 22:00 Sodium Chloride 10 ml Q8HR IV 09/14/24 22:00 09/17/24 06:00 10 ML Acetaminophen/ Hydrocodone Bitart 1 tab Q4HP PRN PO 09/14/24 22:00 09/15/24 11:05 1 TAB Ondansetron HCl 4 mg Q4HP PRN IV 09/14/24 22:00 Docusate Sodium 100 mg BIDPRN PRN PO 09/14/24 22:00 Acetaminophen 650 mg Q6HP PRN PO 09/14/24 22:00 Nitroglycerin 0.4 mg Q5MINP PRN SL 09/14/24 23:45 Morphine Sulfate 2 mg Q30M PRN IV 09/14/24 23:45 Oseltamivir Phosphate 75 mg Q12HR PO 09/15/24 22:00 09/20/24 21:59 09/17/24 09:22 75 MG Sodium Chloride 1,000 ml @ 150 mls/hr Q6H40M IV 09/16/24 10:45 09/17/24 09:22 150 MLS/HR Laboratory Results Laboratory Tests 09/16/24 10:16 Chemistry Test 09/16/24 10:16 Albumin 3.4 g/dL (3.2-4.8) Calcium Level 8.9 mg/dL (8.7-10.4) Total Protein 6.2 g/dL (5.7-8.2) LFT Test 09/16/24 10:16 Alanine Aminotransferase (ALT) 23 U/L (7-40) Alkaline Phosphatase 66 U/L (46-116) Aspartate Amino Transferase (AST) 24 U/L (13-40) Total Bilirubin 0.3 mg/dL (0.2-1.0) Urinalysis Test 09/14/24 21:22 Urine Color Light-brown (Yellow) Urine Clarity Ex.turbid (Clear) Urine pH 5.5 (5.0-9.0) Urine Specific [place] 1.008 (1.001-1.035) Urine Protein Trace (Negative) H Urine Ketones Negative (Negative) Urine Blood 1+ /uL (Negative) H Urine Nitrite Negative (Negative) Urine Bilirubin Negative (Negative) Urine Urobilinogen Normal mg/dL (Negative) Urine Leukocyte Esterase 3+ /uL (Negative) Urine RBC 93 /hpf (0 - 4) Urine WBC Clumps Present /hpf (None Seen) Urine Microscopic WBC 893 /HPF (0-5) H Urine Squamous Epithelial Cells Few /hpf (<5) Urine Bacteria Many /hpf (None Seen) H Urine Mucus Few (None Seen) Urine Glucose Normal mg/dL (Normal) Microbiology Microbiology Date/Time Source Procedure Growth Status 09/15/24 14:00 Blood Blood Culture - Preliminary NO GROWTH AFTER 24 HOURS OF INCUBATION. Resulted 09/14/24 21:22 Voided Urine Urine Culture - Preliminary Resulted Labs and/or images reviewed: Labs reviewed by me, Image(s) reviewed by me Assessment/Plan Assessment/Plan Septic shock secondary to acute urinary tract infection: Blood cultures negative urine cultures mixed, continue Rocephin Acute urinary tract infection History of irritable bowel syndrome Acute hypokalemia potassium 2.3 replace potassium Acute metabolic alkalosis: Diamox 250 mg IV daily Type B flu positive: Tamiflu COVID test negative Acute COPD exacerbation Hypertension Moderate malnutrition History of CVA Pressure Ulcer sacrum present on admission: Wound consult Patient was on hospice for the last two weeks Hospice revoked Time spent 50 minutes Advanced care planning time 20 minutes Patient is full code POA Daughter Erendira [phone] at bedside Patient is slightly lethargic today Plan discussed with: Patient My Orders Orders - SHAYE BURT MD Procedure Category Date Status Time Sodium Chloride 0.9% PHA 09/16/24 In Process 10:45 Wound Culture W/ Gs FRANCISCO 09/16/24 Logged 14:34 Apply Barrier Cream OLESYA 09/16/24 In Process 14:27 Cleanse Wound With OLESYA 09/16/24 In Process Wound Clean 14:27 Date of Service: Sep 17, 2024 Billing Provider: SHAYE BURT MD Common Visit Codes: [id number] INP/OBS CARE(HIGH) SHAYE BURT MD Sep 17, 2024 09:53
[2024-09-17 11:46] LABS: Basophils # (auto) 0.1 10 ^3/uL (0-0.2); Basophils % (auto) 0.6 % (0.0-2.0); Eosinophils # (auto) 0.2 10 ^3/uL (0-0.8); Hematocrit 37.3 % (36.0-46.0); Hemoglobin 12.2 g/dL (12.2-16.2); Lymphocytes # (auto) 2.5 10 ^3/uL (0.4-5.4); Mean Corpuscular Hemoglobin 32.4 pg (28.0-32.0); Mean Corpuscular Hgb Conc. 32.6 g/dL (32.0-36.0); Mean Corpuscular Volume 99.3 fL (80.0-100.0); Monocytes # (auto) 0.8 10 ^3/uL (0-1.3); Monocytes % (auto) 7.7 % (0.0-12.0); Neutrophils # (auto) 6.8 10 ^3/uL (1.6-8.6); Neutrophils % (auto) 65.7 % (37.0-80.0); Platelet Count (auto) 367 10^3/uL (140-450); Red Blood Cells 3.76 10^6/uL (4.0-5.20); Red Cell Distribution Width 14.7 % (11.8-14.3); White Blood Cell 10.4 10^3/uL (4.4-10.8)
[2024-09-17 12:15] LABS: Alanine Aminotransferase 24 U/L (7-40); Alkaline Phosphatase 63 U/L (46-116); Anion Gap 9 (5-15); Aspartate Aminotransferase 17 U/L (13-40); BUN/Creatinine Ratio 10.6 (10.0-20.0); Calcium 8.9 mg/dL (8.7-10.4); Carbon Dioxide 26 mmol/L (20-31); Chloride 106 mmol/L (98-107); Sodium 141 mmol/L (136-145)
[2024-09-17 12:16] LABS: Albumin 3.5 g/dL (3.2-4.8); Bilirubin, Total 0.4 mg/dL (0.2-1.0); Total Protein 6.2 g/dL (5.7-8.2)
[2024-09-17 12:19] LABS: Blood Urea Nitrogen 5 mg/dL (9-23); Glucose 130 mg/dL (74-106); Potassium 3.2 mmol/L (3.5-5.1)
[2024-09-18] MEDS: ACETAMINOPHEN 325 MG TAB PO PRN (00:14)
[2024-09-18 01:00] VITALS: BP 122/71; PULSE 103; RESP 18; TEMP 98.1; O2SAT 98
[2024-09-18 05:00] VITALS: BP 160/75; PULSE 113; RESP 18; TEMP 98; O2SAT 97
[2024-09-18] MEDS: hydrALAZINE HCL 20 MG/ML VL IV PRN (06:13)
[2024-09-18 08:00] VITALS: PULSE 110
[2024-09-18 09:00] VITALS: BP 132/64; PULSE 102; RESP 18; TEMP 98.1; O2SAT 98
--- NOTE | 2024-09-18 10:20 | DVHPN2 ---
Reviewed: Care Plan, H&P, Labs, Medications, Previous Orders, Radiology Changes from previous H/P or p: No Changes Eyes: No Pain, No Vision change, No Conjunctivae inflammation, No Eyelid inflammation, No Other, No Redness ENT: No Ear pain, No Ear discharge, No Nose pain, No Nose discharge, No Nose congestion, No Mouth pain, No Mouth swelling, No Throat pain, No Throat swelling, No Other Cardiovascular: No Chest Pain, No Palpitations, No Orthopnea, No Paroxysmal Noc. Dyspnea, No Edema, No Lt Headedness, No Other Respiratory: No Cough, No Dry, No Shortness of breath, No SOB with excertion, No Wheezing, No Hemoptysis, No Pleuritic Pain, No Sputum, No Other Gastrointestinal: No Nausea, No Vomiting, No Abdominal Pain, No Diarrhea, No Constipation, No Melena, No Hematochezia, No Other Genitourinary: No Dysuria, No Frequency, No Incontinence, No Hematuria, No Retention, No Other Musculoskeletal: No other, No neck pain, No shoulder pain, No arm pain, No back pain, No hand pain, No leg pain, No foot pain Skin: No Rash, No Lesions, No Jaundice, No Bruising, No Other Objective Vitals Vital Signs Date Time Temp Pulse Resp B/P (MAP) Pulse Ox O2 Delivery O2 Flow Rate FiO2 09/18/24 09:00 98.1 102 18 132/64 (86) 98 98.1 09/17/24 20:00 Nasal Cannula* 3 32 Intake/Output Intake and Output 09/18/24 07:00 Intake Total 1500 ml Output Total 1800 ml Balance -300 ml Intake Oral 450 ml IV Total 1050 ml Output Urine Total 1800 ml # Bowel Movements 3 Medications Current Medications Medications Dose Ordered Sig/Ileana Route Start Time Stop Time Status Last Admin Dose Admin Ceftriaxone Sodium 50 ml @ 100 mls/hr DAILY@09 IV 09/15/24 09:00 09/18/24 09:09 100 MLS/HR Aspirin 81 mg DAILY PO 09/15/24 10:00 09/18/24 09:08 81 MG Atorvastatin Calcium 20 mg HS PO 09/14/24 22:00 09/17/24 21:15 20 MG Hydralazine HCl 10 mg Q6HP PRN IV 09/14/24 22:00 09/18/24 06:13 10 MG Sodium Chloride 10 ml Q8HR IV 09/14/24 22:00 09/18/24 05:53 10 ML Ondansetron HCl 4 mg Q4HP PRN IV 09/14/24 22:00 Docusate Sodium 100 mg BIDPRN PRN PO 09/14/24 22:00 Acetaminophen 650 mg Q6HP PRN PO 09/14/24 22:00 09/18/24 00:14 650 MG Nitroglycerin 0.4 mg Q5MINP PRN SL 09/14/24 23:45 Morphine Sulfate 2 mg Q30M PRN IV 09/14/24 23:45 Oseltamivir Phosphate 75 mg Q12HR PO 09/15/24 22:00 09/20/24 21:59 09/18/24 09:08 75 MG Sodium Chloride 1,000 ml @ 150 mls/hr Q6H40M IV 09/16/24 10:45 09/18/24 01:55 150 MLS/HR Laboratory Results Laboratory Tests 09/17/24 11:33 Chemistry Test 09/17/24 11:33 Albumin 3.5 g/dL (3.2-4.8) Calcium Level 8.9 mg/dL (8.7-10.4) Total Protein 6.2 g/dL (5.7-8.2) LFT Test 09/17/24 11:33 Alanine Aminotransferase (ALT) 24 U/L (7-40) Alkaline Phosphatase 63 U/L (46-116) Aspartate Amino Transferase (AST) 17 U/L (13-40) Total Bilirubin 0.4 mg/dL (0.2-1.0) Urinalysis Test 09/14/24 21:22 Urine Color Light-brown (Yellow) Urine Clarity Ex.turbid (Clear) Urine pH 5.5 (5.0-9.0) Urine Specific [place] 1.008 (1.001-1.035) Urine Protein Trace (Negative) H Urine Ketones Negative (Negative) Urine Blood 1+ /uL (Negative) H Urine Nitrite Negative (Negative) Urine Bilirubin Negative (Negative) Urine Urobilinogen Normal mg/dL (Negative) Urine Leukocyte Esterase 3+ /uL (Negative) Urine RBC 93 /hpf (0 - 4) Urine WBC Clumps Present /hpf (None Seen) Urine Microscopic WBC 893 /HPF (0-5) H Urine Squamous Epithelial Cells Few /hpf (<5) Urine Bacteria Many /hpf (None Seen) H Urine Mucus Few (None Seen) Urine Glucose Normal mg/dL (Normal) Microbiology Microbiology Date/Time Source Procedure Growth Status 09/16/24 14:34 Foot Left Gram Stain - Final Resulted 09/16/24 14:34 Foot Left Wound Culture - Preliminary Resulted 09/15/24 14:00 Blood Blood Culture - Preliminary NO GROWTH AFTER 48 HOURS OF INCUBATION. Resulted 09/14/24 21:22 Voided Urine Urine Culture - Final Complete Labs and/or images reviewed: Labs reviewed by me, Image(s) reviewed by me Assessment/Plan Assessment/Plan Septic shock secondary to acute urinary tract infection: Blood cultures negative urine cultures mixed, continue Rocephin Acute urinary tract infection History of irritable bowel syndrome Acute hypokalemia potassium 2.3 replaced potassium Acute metabolic alkalosis: Diamox 250 mg IV daily now resolved Type B flu positive: Tamiflu COVID test negative Acute COPD exacerbation Hypertension Moderate malnutrition History of CVA Pressure Ulcer sacrum present on admission: Wound consult, wound cultures neg Patient was on hospice for the last two weeks Hospice revoked Plan discussed with: Patient My Orders Orders - SHAYE BURT MD Procedure Category Date Status Time Pt Request For Service PT 09/17/24 Logged 10:44 Insert Midline ORDERS 09/17/24 Transmitted 10:46 Communication Order ORDERS 09/17/24 Transmitted 10:46 D/C Sitter ORDERS 09/17/24 Transmitted 10:46 Date of Service: Sep 18, 2024 Billing Provider: SHAYE BURT MD Common Visit Codes: [id number] INP/OBS CARE(HIGH) SHAYE BURT MD Sep 18, 2024 10:20
--- NOTE | 2024-09-18 10:45 | DVHPN2 ---
Reviewed: Care Plan, H&P, Labs, Medications, Previous Orders, Radiology Changes from previous H/P or p: No Changes Eyes: No Pain, No Vision change, No Conjunctivae inflammation, No Eyelid inflammation, No Other, No Redness ENT: No Ear pain, No Ear discharge, No Nose pain, No Nose discharge, No Nose congestion, No Mouth pain, No Mouth swelling, No Throat pain, No Throat swelling, No Other Cardiovascular: No Chest Pain, No Palpitations, No Orthopnea, No Paroxysmal Noc. Dyspnea, No Edema, No Lt Headedness, No Other Respiratory: No Cough, No Dry, No Shortness of breath, No SOB with excertion, No Wheezing, No Hemoptysis, No Pleuritic Pain, No Sputum, No Other Gastrointestinal: No Nausea, No Vomiting, No Abdominal Pain, No Diarrhea, No Constipation, No Melena, No Hematochezia, No Other Genitourinary: No Dysuria, No Frequency, No Incontinence, No Hematuria, No Retention, No Other Musculoskeletal: No other, No neck pain, No shoulder pain, No arm pain, No back pain, No hand pain, No leg pain, No foot pain Skin: No Rash, No Lesions, No Jaundice, No Bruising, No Other Objective Vitals Vital Signs Date Time Temp Pulse Resp B/P (MAP) Pulse Ox O2 Delivery O2 Flow Rate FiO2 09/18/24 09:00 98.1 102 18 132/64 (86) 98 98.1 09/17/24 20:00 Nasal Cannula* 3 32 Intake/Output Intake and Output 09/18/24 07:00 Intake Total 1500 ml Output Total 1800 ml Balance -300 ml Intake Oral 450 ml IV Total 1050 ml Output Urine Total 1800 ml # Bowel Movements 3 Medications Current Medications Medications Dose Ordered Sig/Ileana Route Start Time Stop Time Status Last Admin Dose Admin Ceftriaxone Sodium 50 ml @ 100 mls/hr DAILY@09 IV 09/15/24 09:00 09/18/24 09:09 100 MLS/HR Aspirin 81 mg DAILY PO 09/15/24 10:00 09/18/24 09:08 81 MG Atorvastatin Calcium 20 mg HS PO 09/14/24 22:00 09/17/24 21:15 20 MG Hydralazine HCl 10 mg Q6HP PRN IV 09/14/24 22:00 09/18/24 06:13 10 MG Sodium Chloride 10 ml Q8HR IV 09/14/24 22:00 09/18/24 05:53 10 ML Ondansetron HCl 4 mg Q4HP PRN IV 09/14/24 22:00 Docusate Sodium 100 mg BIDPRN PRN PO 09/14/24 22:00 Acetaminophen 650 mg Q6HP PRN PO 09/14/24 22:00 09/18/24 00:14 650 MG Nitroglycerin 0.4 mg Q5MINP PRN SL 09/14/24 23:45 Morphine Sulfate 2 mg Q30M PRN IV 09/14/24 23:45 Oseltamivir Phosphate 75 mg Q12HR PO 09/15/24 22:00 09/20/24 21:59 09/18/24 09:08 75 MG Sodium Chloride 1,000 ml @ 150 mls/hr Q6H40M IV 09/16/24 10:45 09/18/24 01:55 150 MLS/HR Laboratory Results Laboratory Tests 09/17/24 11:33 Chemistry Test 09/17/24 11:33 Albumin 3.5 g/dL (3.2-4.8) Calcium Level 8.9 mg/dL (8.7-10.4) Total Protein 6.2 g/dL (5.7-8.2) LFT Test 09/17/24 11:33 Alanine Aminotransferase (ALT) 24 U/L (7-40) Alkaline Phosphatase 63 U/L (46-116) Aspartate Amino Transferase (AST) 17 U/L (13-40) Total Bilirubin 0.4 mg/dL (0.2-1.0) Urinalysis Test 09/14/24 21:22 Urine Color Light-brown (Yellow) Urine Clarity Ex.turbid (Clear) Urine pH 5.5 (5.0-9.0) Urine Specific [place] 1.008 (1.001-1.035) Urine Protein Trace (Negative) H Urine Ketones Negative (Negative) Urine Blood 1+ /uL (Negative) H Urine Nitrite Negative (Negative) Urine Bilirubin Negative (Negative) Urine Urobilinogen Normal mg/dL (Negative) Urine Leukocyte Esterase 3+ /uL (Negative) Urine RBC 93 /hpf (0 - 4) Urine WBC Clumps Present /hpf (None Seen) Urine Microscopic WBC 893 /HPF (0-5) H Urine Squamous Epithelial Cells Few /hpf (<5) Urine Bacteria Many /hpf (None Seen) H Urine Mucus Few (None Seen) Urine Glucose Normal mg/dL (Normal) Microbiology Microbiology Date/Time Source Procedure Growth Status 09/16/24 14:34 Foot Left Gram Stain - Final Resulted 09/16/24 14:34 Foot Left Wound Culture - Preliminary Resulted 09/15/24 14:00 Blood Blood Culture - Preliminary NO GROWTH AFTER 48 HOURS OF INCUBATION. Resulted 09/14/24 21:22 Voided Urine Urine Culture - Final Complete Labs and/or images reviewed: Labs reviewed by me, Image(s) reviewed by me Assessment/Plan Assessment/Plan Septic shock secondary to acute urinary tract infection: Blood cultures negative urine cultures mixed, continue Rocephin Acute urinary tract infection History of irritable bowel syndrome Acute hypokalemia potassium 2.3 replaced potassium Acute metabolic alkalosis: Diamox 250 mg IV daily now resolved Type B flu positive: Tamiflu COVID test negative Acute COPD exacerbation Hypertension Moderate malnutrition History of CVA Pressure Ulcer sacrum present on admission: Wound consult, wound cultures neg Patient was on hospice for the last two weeks Hospice revoked Plan discussed with: Patient My Orders Orders - SHAYE BURT MD Procedure Category Date Status Time Pt Request For Service PT 09/17/24 Logged 10:44 Insert Midline ORDERS 09/17/24 Transmitted 10:46 Communication Order ORDERS 09/17/24 Transmitted 10:46 D/C Sitter ORDERS 09/17/24 Transmitted 10:46 D/C Sitter ORDERS 09/18/24 Transmitted 10:33 Communication Order ORDERS 09/18/24 Transmitted 10:33 * Heading Up Machine Operator CONS 09/18/24 Transmitted Consult Potassium Er Tablet PHA 09/18/24 Logged (Klor-Con Tablet) 10:45 Date of Service: Sep 18, 2024 Billing Provider: SHAYE BURT MD Common Visit Codes: [id number] INP/OBS CARE(HIGH) SHAYE BURT MD Sep 18, 2024 10:45
--- NOTE | 2024-09-18 10:49 | DVHDS2 ---
Discharge Summary Date of Admission Sep 14, 2024 at 23:44 Date of Discharge: Sep 18, 2024 Admitting Diagnosis Generalized weakness and altered mental status Wounds: None Labs/Diagnostic Data: Laboratory Results Test 09/17/24 11:33 09/14/24 21:22 09/14/24 21:20 09/14/24 18:37 White Blood Count 10.4 10^3/uL (4.4-10.8) Red Blood Count 3.76 10^6/uL (4.0-5.20) Hemoglobin 12.2 g/dL (12.2-16.2) Hematocrit 37.3 % (36.0-46.0) Mean Corpuscular Volume 99.3 fL (80.0-100.0) Mean Corpuscular Hemoglobin 32.4 pg (28.0-32.0) Mean Corpuscular Hemoglobin Concent 32.6 g/dL (32.0-36.0) Red Cell Distribution Width 14.7 % (11.8-14.3) Platelet Count 367 10^3/uL (140-450) Mean Platelet Volume 6.8 fL (6.9-10.8) Neutrophils (%) (Auto) 65.7 % (37.0-80.0) Lymphocytes (%) (Auto) 24.0 % (10.0-50.0) Monocytes (%) (Auto) 7.7 % (0.0-12.0) Eosinophils (%) (Auto) 2.0 % (0.0-7.0) Basophils (%) (Auto) 0.6 % (0.0-2.0) Neutrophils # (Auto) 6.8 10 ^3/uL (1.6-8.6) Lymphocytes # (Auto) 2.5 10 ^3/uL (0.4-5.4) Monocytes # (Auto) 0.8 10 ^3/uL (0-1.3) Eosinophils # (Auto) 0.2 10 ^3/uL (0-0.8) Basophils # (Auto) 0.1 10 ^3/uL (0-0.2) Nucleated Red Blood Cells 0.0 % Sodium Level 141 mmol/L (136-145) Potassium Level 3.2 mmol/L (3.5-5.1) Chloride Level 106 mmol/L (98-107) Carbon Dioxide Level 26 mmol/L (20-31) Anion Gap 9 (5-15) Blood Urea Nitrogen 5 mg/dL (9-23) Creatinine 0.47 mg/dL (0.550-1.02) Glomerular Filtration Rate Calc 97 mL/min (>90) BUN/Creatinine Ratio 10.6 (10.0-20.0) Serum Glucose 130 mg/dL (74-106) Calcium Level 8.9 mg/dL (8.7-10.4) Total Bilirubin 0.4 mg/dL (0.2-1.0) Aspartate Amino Transferase (AST) 17 U/L (13-40) Alanine Aminotransferase (ALT) 24 U/L (7-40) Alkaline Phosphatase 63 U/L (46-116) Total Protein 6.2 g/dL (5.7-8.2) Albumin 3.5 g/dL (3.2-4.8) Urine Color Light-brown (Yellow) Urine Clarity Ex.turbid (Clear) Urine pH 5.5 (5.0-9.0) Urine Specific [place] 1.008 (1.001-1.035) Urine Protein Trace (Negative) Urine Ketones Negative (Negative) Urine Blood 1+ /uL (Negative) Urine Nitrite Negative (Negative) Urine Bilirubin Negative (Negative) Urine Urobilinogen Normal mg/dL (Negative) Urine Leukocyte Esterase 3+ /uL (Negative) Urine RBC 93 /hpf (0 - 4) Urine WBC Clumps Present /hpf (None Seen) Urine Microscopic WBC 893 /HPF (0-5) Urine Squamous Epithelial Cells Few /hpf (<5) Urine Bacteria Many /hpf (None Seen) Urine Mucus Few (None Seen) Urine Glucose Normal mg/dL (Normal) Troponin I High Sensitivity 20 ng/L (</=34) Influenza Type A Antigen Negative (Negative) Influenza Type B Antigen Positive (Negative) SARS-CoV-2 Antigen (Rapid) Negative (NEGATIVE) POC Glucose 155 mg/dl (70-106) Other Laboratory Tests 09/17/24 11:33 Brief Hx & Hospital Course: 78-year-old female with a recurrent urinary tract infections irritable bowel syndrome COPD hypertension history of CVA chronic pressure ulcer of the sacrum present on admission brought in for altered mental status and confusion found to have acute urinary tract infection with sepsis. Blood cultures negative urine cultures mixed treated with Rocephin potassium was very low 2.3 which was replaced and she recovered also was in acute metabolic alkalosis treated with a Diamox and patient has improved type B flu positive treated with the Tamiflu COVID test negative. Wound cultures from the sacrum negative patient being discharged to longterm facility for rehab for two weeks IV antibiotics for complicated UTI she is hospice revoked. The plan is acceptable with the patient's daughter Erendira. Consults/Reason for consult None Operations or Procedures CT head Condition at Discharge: Fair Final Diagnosis/Problems List Septic shock secondary to acute urinary tract infection: Blood cultures negative urine cultures mixed, continue Rocephin Acute urinary tract infection History of irritable bowel syndrome Acute hypokalemia potassium 2.3 replaced potassium Acute metabolic alkalosis: Diamox 250 mg IV daily now resolved Type B flu positive: Tamiflu COVID test negative Acute COPD exacerbation Hypertension Moderate malnutrition History of CVA Pressure Ulcer sacrum present on admission: Wound consult, wound cultures neg Patient was on hospice for the last two weeks Hospice revoked Discharge Disposition: [facility] Facility Discharge Instruct/Medications Diet: Consistent carbohydrate Activity: Light activity Follow Up/Referral: Follow up with the [facility] Medications: Rocephin 1 g IV daily for two weeks see list for other meds 39 (Time taken for discharge summary 39 minutes) Discharge Statement: "Patient was advised to return to the ER or call 911 if any headaches, dizziness, shortness of breath, chest pain, abdominal pain, bleeding, fevers, or worsening of medical condition. Patient was counseled about treatment plan, medications, possible side effects, patientverbalized understanding. All questions were answered to the best of my ability. This discharge took greater then 30 minutes in planning, reviewing documentation, counseling the patient, and discussing with other team members." ASSESSMENT ASSESSMENT Assessment Septic shock secondary to acute urinary tract infection: Blood cultures negative urine cultures mixed, continue Rocephin Acute urinary tract infection History of irritable bowel syndrome Acute hypokalemia potassium 2.3 replaced potassium Acute metabolic alkalosis: Diamox 250 mg IV daily now resolved Type B flu positive: Tamiflu COVID test negative Acute COPD exacerbation Hypertension Moderate malnutrition History of CVA Pressure Ulcer sacrum present on admission: Wound consult, wound cultures neg Patient was on hospice for the last two weeks Hospice revoked Date of Service: Sep 18, 2024 Billing Provider: SHAYE BURT MD Common Visit Codes: [id number] DISCH DAY >30min SHAYE BURT MD Sep 18, 2024 10:49
[2024-09-18] MEDS: POTASSIUM CHL 20 Meq TABLET PO ONE (11:12)
[2024-09-18 13:00] VITALS: BP 148/74; PULSE 103; RESP 18; TEMP 98; O2SAT 95
[2024-09-18 17:00] VITALS: BP 164/92; PULSE 109; RESP 18; TEMP 98.2; O2SAT 99
== END 2024-09-18 20:40 | disposition hospice, inpatient (51) | DRG 871 ==
LOC: ER 17:28 → EDBD 17:28 → OVERFLOW 23:44 → TELE-CENTR 09-15 21:37
PROVIDERS: ADMIT Family Medicine; ATTEND Family Medicine
PROC: 05HA33Z Insertion of Infusion Device into Left Brachial Vein, Percutaneous Approach (ICD-10-PCS; principal; 2024-09-18)
PROC: B54NZZA Ultrasonography of Left Upper Extremity Veins, Guidance (ICD-10-PCS; 2024-09-18)
DX: A41.9 Sepsis, unspecified organism (principal); R65.21 Severe sepsis with septic shock; N39.0 Urinary tract infection, site not specified; J96.12 Chronic respiratory failure with hypercapnia; J44.1 Chronic obstructive pulmonary disease with (acute) exacerbation; J96.11 Chronic respiratory failure with hypoxia; E44.0 Moderate protein-calorie malnutrition; E87.3 Alkalosis; L89.151 Pressure ulcer of sacral region, stage 1; Z20.822 Contact with and (suspected) exposure to COVID-19; Z51.5 Encounter for palliative care; E87.6 Hypokalemia; J10.1 Influenza due to other identified influenza virus with other respiratory manifestations; I10 Essential (primary) hypertension; Z79.899 Other long term (current) drug therapy; Z86.73 Personal history of transient ischemic attack (TIA), and cerebral infarction without residual deficits; Z87.891 Personal history of nicotine dependence; Z68.32 Body mass index [BMI] 32.0-32.9, adult; Z88.2 Allergy status to sulfonamides
CPT/HCPCS: 36415; 71045; 80048; 80053; 81001; 82962; 84484; 85025; 87040; 87077; 87086; 87186; 87205; 87426; 87804; 93005; 94640; 97163; G0378

== ENCOUNTER 2024-10-08 17:01 | Inpatient (IN) | payer MEDICARE, OTHER ==
[~2024-10-08] VITALS: Ht 144.8 cm; Wt 77.6 kg
--- NOTE | 2024-10-08 17:28 | ED.PDOC ---
SOB-HPI HPI Comments 79-year-old female who comes in with chief complaint of low oxygen saturation with shortness a breath and a productive brown cough. The patient was had low saturations all day where they measured it in the 80s. The patient denies any nausea, vomiting or diarrhea. He did try breathing treatment without any significant results. They also gave the patient Lasix 40 mg IV push. The patient was recently diagnosed with a UTI and was receiving IV antibiotics for sepsis but supposedly the antibiotics has been discontinued. At this time the patient was having fever as well as chest pain. There has been no vomiting or diarrhea. Upon arrival, the patient was able to answer all questions appropriat srinivas. Chief Complaint: Shortness of Breath Time Seen by MD: 17:06 Reviewed notes: Nurses Notes, Senior Foreman Notes, Medications, Allergies (Allergies listed above) Information Source: Patient, Emergency Med Personnel Mode of Arrival: EMS Severity: Moderate Timing: Hours Duration: Since onset Context: At Rest PE Risk Factors: None History of: COPD Prehospital treatment: 12 Lead EKG, Qa Tester Modifying Factors: Nothing Associated Signs and Symptoms: Fever, Cough (DrChina Cough with brown sputum), Chest Pain Quality: Sharp Radiation: No Radiation Location: Substernal If cough with SOB: Productive, Brown Past Medical History PAST MEDICAL HISTORY: COPD, CVA, Dementia, High Lipids, HTN Surgical History: Hysterectomy LICSW History: Denies all LICSW Hx Family History Family History: Reviewed,noncontributory to illness Social History Smoker: Quit Less Than 1 Year Alcohol: Occasionally Drugs: Denies Drug Use Lives In: [place] Constitutional: reports: fever, weakness; denies: chills, diaphoresis, fatigue, malaise, sweats, others EENTM: denies: blurred vision, double vision, ear bleeding, ear discharge, ear drainage, ear pain, ear ringing, eye pain, eye redness, hearing loss, mouth pain, mouth swelling, nasal discharge, nose bleeding, nose congestion, nose pain, photophobia, tearing, throat pain, throat swelling, voice changes, others Respiratory: reports: cough, shortness of breath; denies: hemoptysis, orthopnea, SOB at rest, SOB with excertion, stridor, wheezing, others Cardiovascular: reports: chest pain; denies: dizzy spells, diaphoresis, Dyspnea on exertion, edema, irregular heart beat, left arm pain, lightheadedness, palpitations, PND, syncope, others Gastrointestinal: denies: abdomen distended, abdominal pain, blood streaked bowels, constipated, diarrhea, dysphagia, difficulty swallowing, hematemesis, melena, nausea, poor appetite, poor fluid intake, rectal bleeding, rectal pain, vomiting, others Genitourinary: denies: abnormal vagina bleeding, burning, dyspareunia, dysuria, flank pain, frequency, hematuria, incontinence, pain, , vagina discharge, urgency, others Neurological: denies: dizziness, fainting, headache, left sided numbness, left sided weakness, numbness, paresthesia, pre-existing deficit, right sided numbness, right sided weakness, seizure, speech problems, tingling, tremors, weakness, others Musculoskeletal: denies: back pain, gout, joint pain, joint swelling, muscle pain, muscle stiffness, neck pain, others Integumetry: denies: bruises, change in color, change in hair/nails, dryness, laceration, lesions, lumps, rash, wounds, others Allergic/Immunocompromised: denies: Difficulty Healing, Frequent Infections, Hives, Itching, others Hematologic/Lymphatic: denies: anemia, blood clots, easy bleeding, easy bruising, swollen glands, others Endocrine: denies: excessive hunger, excessive sweating, excessive thirst, excessive urination, flushing, intolerance to cold, intolerance to heat, unexplained weight gain, unexplained weight loss, others Psychiatric: denies: anxiety, bipolar disorder, depression, hopeless, panic disorder, schizophrenia, sleepless, suicidal, others Physical Exam General Appearance: Moderate Distress, Obese HEENT: Normal ENT Inspection, Pharynx Normal, TMs Normal Neck: Full Range of Motion, Non-Tender, Normal, Normal Inspection Respiratory: Chest Non-Tender, Decreased Breath Sounds, No Accessory Muscle Use, Respiratory Distress, Rhonchi Cardiovascular: No Edema, No JVD, No Murmur, No Gallop, Tachycardia Breast Exam: Deferred Gastrointestinal: No Organomegaly, Non Tender, No Pulsatile Mass, Normal Bowel Sounds, Soft Genitalia: Deferred Pelvic: Deferred Rectal: Deferred Extremities: No calf tenderness, Normal capillary refill, Normal inspection, Normal range of motion, Non-tender, No pedal edema Musculoskeletal : Apperance: Normal Neurologic: Alert, vessel slagman II-XII nml as Tested, No Motor Deficits, Normal Affect, Normal Mood, No Sensory Deficits Cerebellar Function: Normal Reflexes: Normal Skin: Dry, Normal Color, Warm Lymphatic: No Adenopathy EKG EKG : Pulse Rate (adult): 112 Kirby: Normal Cardiac Rhythm: ST Block: None ST: Nonsp Was a procedure done? Was a procedure done?: No Differential Dx Differential Diagnosis: Asthma, Bronchitis, CHF, COPD, Pneumonia X-Ray, Labs, Meds, VS Vital Signs Date Time Temp Pulse Resp B/P (MAP) Pulse Ox O2 Delivery O2 Flow Rate FiO2 10/08/24 17:40 16 92 Nasal Cannula* 4 36 10/08/24 17:28 112 10/08/24 17:21 98.2 111 16 128/80 (96) 92 98.2 10/08/24 17:01 112 Lab Test 10/08/24 19:05 10/08/24 18:01 Range/Units Troponin I High Sensitivity 7 8 </=34 ng/L White Blood Count 9.2 4.4-10.8 10^3/uL Red Blood Count 4.07 4.0-5.20 10^6/uL Hemoglobin 13.2 12.2-16.2 g/dL Hematocrit 39.7 36.0-46.0 % Mean Corpuscular Volume 97.7 80.0-100.0 fL Mean Corpuscular Hemoglobin 32.4 H 28.0-32.0 pg Mean Corpuscular Hemoglobin Concent 33.1 32.0-36.0 g/dL Red Cell Distribution Width 15.1 H 11.8-14.3 % Platelet Count 401 140-450 10^3/uL Mean Platelet Volume 6.8 L 6.9-10.8 fL Neutrophils (%) (Auto) 67.0 37.0-80.0 % Lymphocytes (%) (Auto) 19.8 10.0-50.0 % Monocytes (%) (Auto) 9.7 0.0-12.0 % Eosinophils (%) (Auto) 3.2 0.0-7.0 % Basophils (%) (Auto) 0.3 0.0-2.0 % Neutrophils # (Auto) 6.1 1.6-8.6 10 ^3/uL Lymphocytes # (Auto) 1.8 0.4-5.4 10 ^3/uL Monocytes # (Auto) 0.9 0-1.3 10 ^3/uL Eosinophils # (Auto) 0.3 0-0.8 10 ^3/uL Basophils # (Auto) 0 0-0.2 10 ^3/uL Nucleated Red Blood Cells 0.2 % Sodium Level 140 136-145 mmol/L Potassium Level 4.2 3.5-5.1 mmol/L Chloride Level 102 98-107 mmol/L Carbon Dioxide Level 32 H 20-31 mmol/L Anion Gap 6 5-15 Blood Urea Nitrogen 7 L 9-23 mg/dL Creatinine 0.52 L 0.550-1.02 mg/dL Glomerular Filtration Rate Calc 94 >90 mL/min BUN/Creatinine Ratio 13.5 10.0-20.0 Serum Glucose 132 H 74-106 mg/dL Lactic Acid Level 2.4 *H 0.4-2.0 mmol/L Calcium Level 9.8 8.7-10.4 mg/dL B-Type Natriuretic Peptide 144.78 0-100 pg/mL IV Hep-Lock was established The patient was being given normal saline as a bolus The patient's CBC is within normal limits The chemistry panel is within normal limits The lactic acid level is 2.4 The patient's troponin level x2 is negative At this time, the patient was being admitted to the hospitalist. Images Reviewed?: Images reviewed and evaluated by me Time of 1ST Reevaluation: 17:28 Reevaluation 1ST: Unchanged Patient Education/Counseling: Diagnosis, Treatment, Prognosis Family Education/Counseling: No Family Present Departure 1 Departure Time of Disposition: 19:57 Impression: Primary Impression: Chronic respiratory failure with hypercapnia Additional Impression: Elevated lactic acid level Disposition: ADMITTED INPATIENT Admit to: [facility] Condition: Fair Critical Care Note Critical Care Time?: Yes (45 min-critical care time only) Stability Stability form required: Yes Unstable for transfer: Telemetry monitoring (Telemetry monitoring required), ED Physician Assesment (Clinical assesment) Heart Score Heart Score: Heart Score Response (Comments) Value History Moderate Suspicious 1 EKG Repolarization Disturb 1 Age >65 2 Risk Factors >3 or Hx ASHD 2 Troponin Normal limit 0 Total 6 KATHYA REED MD Oct 08, 2024 17:28
[2024-10-08 18:17] LABS: Basophils # (auto) 0 10 ^3/uL (0-0.2); Basophils % (auto) 0.3 % (0.0-2.0); Eosinophils # (auto) 0.3 10 ^3/uL (0-0.8); Eosinophils % (auto) 3.2 % (0.0-7.0); Hematocrit 39.7 % (36.0-46.0); Hemoglobin 13.2 g/dL (12.2-16.2); Lymphocytes # (auto) 1.8 10 ^3/uL (0.4-5.4); Lymphocytes % (auto) 19.8 % (10.0-50.0); Mean Corpuscular Hemoglobin 32.4 pg (28.0-32.0); Mean Corpuscular Hgb Conc. 33.1 g/dL (32.0-36.0); Mean Corpuscular Volume 97.7 fL (80.0-100.0); Monocytes # (auto) 0.9 10 ^3/uL (0-1.3); Monocytes % (auto) 9.7 % (0.0-12.0); Neutrophils # (auto) 6.1 10 ^3/uL (1.6-8.6); Nucleated Red Blood Cells % 0.2 %; Platelet Count (auto) 401 10^3/uL (140-450); Red Blood Cells 4.07 10^6/uL (4.0-5.20); Red Cell Distribution Width 15.1 % (11.8-14.3); White Blood Cell 9.2 10^3/uL (4.4-10.8)
[2024-10-08 18:25] LABS: Chloride 102 mmol/L (98-107); Potassium 4.2 mmol/L (3.5-5.1); Sodium 140 mmol/L (136-145)
[2024-10-08 18:26] LABS: Anion Gap 6 (5-15)
[2024-10-08 18:27] LABS: Calcium 9.8 mg/dL (8.7-10.4)
[2024-10-08 18:32] LABS: BUN/Creatinine Ratio 13.5 (10.0-20.0); Blood Urea Nitrogen 7 mg/dL (9-23); Carbon Dioxide 32 mmol/L (20-31); Glucose 132 mg/dL (74-106)
[2024-10-08 18:37] LABS: Lactic Acid w/Reflex 2.4 mmol/L (0.4-2.0)
--- NOTE | 2024-10-08 18:49 | DVH ---
INDICATION: sob TECHNIQUE: Frontal view of the chest. COMPARISON: XY CHEST PORTABLE on DOS: 09/14/24, XY CHEST PORTABLE on DOS: 06/25/24 FINDINGS: . The heart and mediastinal contours are grossly unremarkable. There is no evidence of pleural disea se. The lungs are clear. The bony structures of the chest are intact without fracture. IMPRESSION: 1. No evidence of acute disease.
[2024-10-08 20:45] VITALS: PULSE 119; RESP 12; O2SAT 97
[2024-10-08] MEDS: methylPREDNISolone SOD SUCC 125 MG/2 ML VL IV ONE (21:04)
[2024-10-08] MEDS ORDERED: ACETAMINOPHEN 325 MG TAB PO PRN (23:00)
[2024-10-08] MEDS ORDERED: VANCOMYCIN PER PHARMACY 0 MG IV SCH (23:00)
--- NOTE | 2024-10-08 23:11 | DVHHPRES ---
History of Present Illness Resident Creating Document: LYNETTE HARRISON RESDIENT History of Present Illness This is a 79-year-old female with past medical history of COPD (on 4.5 L of oxygen at home) CVA with residual deficits, dementia, dyslipidemia, and hypertension brought from the [facility] to the hospital due to altered mental status, and decreased oral intake. Due to ALOC of patient history was taken from the daughter on the phone. Per patient's daughter she has been more altered and increased shortness of breaths recently, but could not provide more detailed history. Patient was previously on hospice care due to advanced COPD but has recently revoked. PMHx: COPD (on 4.5 L of oxygen at home) CVA with residual deficits, dementia, dyslipidemia, and hypertension PSHx: Right hip surgery, peripheral angioplasty due to PID, and tonsillectomy Family history: Noncontributory Social history: Ex-smoker, denies any other drug use lives at [facility]. Home medication: Aspirin, docusate furosemide, hydrochlorothiazide, metoprolol, ropinirole, rosuvastatin Allergic history: Iodine, sulfa antibiotic, egg and erythromycin Patient seen and examined at the bedside. Patient is altered and could not provide proper history. Review of Systems Review of Systems Due to altered mental status of the patient, review of systems could not obtain. Allergies: Coded Allergies: Egg-derived Products (Verified Allergy, Unknown, 10/09/24) Erythromycin (Verified Allergy, Unknown, 10/09/24) Iodine (Verified Allergy, Unknown, 06/25/24) Sulfa Antibiotics (Verified Allergy, Unknown, 06/25/24) Medications Current Medications Medications Dose Ordered Sig/Ileana Route Start Time Stop Time Status Last Admin Dose Admin Acetaminophen 650 mg Q6HP PRN PO 10/08/24 23:00 UNV Exam Vital Signs Vital Signs Date Time Temp Pulse Resp B/P (MAP) Pulse Ox O2 Delivery O2 Flow Rate FiO2 10/08/24 22:45 98.9 110 24 146/78 (100) 97 98.9 10/08/24 20:45 Nasal Cannula* 2 28 Exam General Appearance: Alert, oriented to person, disoriented to time and place HEENT: Atraumatic, PERRLA, EOMI, Mucous membrane moist/pink Respiratory: Clear to auscultation, Normal air movement Cardiovascular: Regular rate, Normal S1, Normal S2, No murmurs, no chest wall tenderness Abdominal: Normal bowel sounds, Soft, No tenderness, No hepatospenomegaly, No masses Extremities: Sacral area grade 1-2 bedsore Skin: No rashes, No breakdown, No significant lesion Neuro: Normal gait, Normal speech, Strength at 5/5 X4 ext, Normal tone, Sensation intact, Cranial nerves 3-12 NL, Reflexes 2+ Psych/Mental Status: Mental status NL, Mood NL Labs/Xrays Labs Test 10/08/24 22:45 10/08/24 19:54 10/08/24 19:05 10/08/24 18:01 Range/Units Lactic Acid Level 2.4 *H 0.4-2.0 mmol/L Troponin I High Sensitivity 7 </=34 ng/L White Blood Count 9.2 4.4-10.8 10^3/uL Red Blood Count 4.07 4.0-5.20 10^6/uL Hemoglobin 13.2 12.2-16.2 g/dL Hematocrit 39.7 36.0-46.0 % Mean Corpuscular Volume 97.7 80.0-100.0 fL Mean Corpuscular Hemoglobin 32.4 H 28.0-32.0 pg Mean Corpuscular Hemoglobin Concent 33.1 32.0-36.0 g/dL Red Cell Distribution Width 15.1 H 11.8-14.3 % Platelet Count 401 140-450 10^3/uL Mean Platelet Volume 6.8 L 6.9-10.8 fL Neutrophils (%) (Auto) 67.0 37.0-80.0 % Lymphocytes (%) (Auto) 19.8 10.0-50.0 % Monocytes (%) (Auto) 9.7 0.0-12.0 % Eosinophils (%) (Auto) 3.2 0.0-7.0 % Basophils (%) (Auto) 0.3 0.0-2.0 % Neutrophils # (Auto) 6.1 1.6-8.6 10 ^3/uL Lymphocytes # (Auto) 1.8 0.4-5.4 10 ^3/uL Monocytes # (Auto) 0.9 0-1.3 10 ^3/uL Eosinophils # (Auto) 0.3 0-0.8 10 ^3/uL Basophils # (Auto) 0 0-0.2 10 ^3/uL Nucleated Red Blood Cells 0.2 % Sodium Level 140 136-145 mmol/L Potassium Level 4.2 3.5-5.1 mmol/L Chloride Level 102 98-107 mmol/L Carbon Dioxide Level 32 H 20-31 mmol/L Anion Gap 6 5-15 Blood Urea Nitrogen 7 L 9-23 mg/dL Creatinine 0.52 L 0.550-1.02 mg/dL Glomerular Filtration Rate Calc 94 >90 mL/min BUN/Creatinine Ratio 13.5 10.0-20.0 Serum Glucose 132 H 74-106 mg/dL Calcium Level 9.8 8.7-10.4 mg/dL B-Type Natriuretic Peptide 144.78 0-100 pg/mL Assessment/Plan Assessment/Plan Acute on chronic metabolic encephalopathy , likely due to sepsis Acute on chronic hypoxic respiratory failure, likely due to COPD exacerbation COPD exacerbation Sepsis, likely due to UTI Complicated UTI Blood/urine/sputum culture Empiric antibiotic, vancomycin and cefepime IV fluid Solu-Medrol Breathing treatment History of dementia CVA with residual deficits Dyslipidemia Hypertension History of skin cancer, in remission Continue aspirin and atorvastatin Sacral area wound, grade 1-2 (present on admission) Consult wound care DIET: Cardiac diet DVT PROPHYLAXIS: Lovenox GI PROPHYLAXIS:: Protonix CODE STATUS: Goal of care discussed for more than 18 minutes with the patient's daughter, DNR DISPOSITION: Med/surge Patient's status and paln discussed with the patient's daughter through the phone. Case discussed with Dr. Cedillo Plan discussed with: Patient, Other (RN) My Orders Orders - LYNETTE HARRISON RESSCOUT Procedure Category Date Status Time Admit ADMIT 10/08/24 Transmitted 22:52 Code Status CODE 10/08/24 Transmitted 22:52 Vital Signs OLESYA 10/08/24 In Process 22:52 Review Orders With OLESYA 10/08/24 In Process Adm. 22:52 Acetaminophen Tablet PHA 10/08/24 Logged (Tylenol Tablet) 23:00 Notify Of Changes OLESYA 10/08/24 In Process From Base 22:52 Advance Directive OLESYA 10/08/24 In Process 22:52 Echo 2d Mode Cardiac US 10/08/24 Logged DOP 22:52 Urine Bacterial FRANCISCO 10/08/24 Logged Culture 22:52 Patient Condition ORDERS 10/08/24 Transmitted 22:52 Allergies OLESYA 10/08/24 In Process 22:52 Hydrocodone-Acet PHA 10/08/24 Transmitted 5/325mg Tab ([place] 23:00 Drug Screen LAB 10/08/24 Logged 22:52 Lovenox 40mg PHA 10/09/24 Transmitted 10:00 Oxygen By Nasal RT 10/08/24 Transmitted Cannula 22:52 Stat Ekg For Chest OLESYA 10/08/24 In Process Pain 22:52 Notify Of Changes OLESYA 10/08/24 In Process From Base 22:52 Knockout Man For OLESYA 10/08/24 In Process 24 Hours 22:52 Emergency Dysrhythmia [facility] 10/08/24 In Process Protocol 22:52 Rhythm Strips Once OLESYA 10/08/24 In Process Every Shift 22:52 Lactic Acid W/ Reflex LAB 10/09/24 Verified Order 04:00 PTPTT LAB 10/09/24 Verified 04:00 Comprehensive LAB 10/09/24 Verified Metabolic Panel 04:00 Complete Blood Count LAB 10/09/24 Verified 04:00 Abg W/ Co-Ox RT 10/08/24 Logged 22:52 Magnesium LAB 10/08/24 Logged 22:52 Ammonia LAB 10/08/24 Logged 22:52 Vitamin D 25-Hydroxy LAB 10/08/24 Logged D2 + D3 22:52 Vitamin B12 LAB 10/08/24 Logged 22:52 * Wound Consult CONS 10/08/24 Transmitted Wound Culture W/ Gs FRANCISCO 10/08/24 Logged 22:52 NS PHA 10/08/24 Transmitted 23:00 NS PHA 10/08/24 Transmitted 23:00 Vancomycin Per PHA 10/08/24 Transmitted Pharmacy 23:00 Cefepime 1 Gm PHA 10/08/24 Transmitted 23:00 Cefepime 1 Gm PHA 10/09/24 Transmitted 06:00 Aspirin Tablet PHA 10/09/24 Transmitted 10:00 Aspirin Tablet PHA 10/08/24 Transmitted 23:00 Atorvastatin (Lipitor) PHA 10/08/24 Transmitted 23:00 Atorvastatin (Lipitor) PHA 10/09/24 Transmitted 22:00 Date of Service: Oct 08, 2024 Billing Provider: JESSICA CEDILLO MD Common Visit Codes: [id number] INP/OBS CARE (HIGH) Secondary Visit Codes: [id number] CARE PLAN 30 MINUTES LYNETTE HARRISON Oct 08, 2024 23:11 TY KELLY Oct 09, 2024 03:11 JESSICA CEDILLO MD Oct 09, 2024 17:21
[2024-10-08 23:15] LABS: Urine Bacteria FEW /hpf (None Seen); Urine Blood Negative /uL (Negative); Urine Clarity Turbid (Clear); Urine Color Light-Yellow (Yellow); Urine Protein, UAD Negative (Negative); Urine Specific Gravity 1.009 (1.001-1.035); Urine Squamous Epithelial Cell FEW /hpf (<5); Urine Urobilinogen Normal (Negative); Urine WBC 134 /HPF (0-5)
[2024-10-08 23:21] LABS: Base Excess 3.3 mmol/L (-2.0-3.0)
[2024-10-08 23:23] VITALS: BP 146/78; PULSE 110; RESP 24; TEMP 98.9; O2SAT 97
[2024-10-08] MEDS: CEFEPIME 1GM/ 50ML 50 ML IV ONE (23:30)
[2024-10-08] MEDS: SODIUM CHLORIDE 0.9% 1,000 ML IV SCH (23:30)
[2024-10-08] MEDS: ASPirin 81 mg TAB PO ONE (23:30)
[2024-10-08] MEDS: ATORVASTATIN 20 MG TAB PO ONE (23:30)
[2024-10-08] MEDS: SODIUM CHLORIDE 0.9% 1,000 ML IV ONE (23:30)
[2024-10-08] MEDS: PANTOPRAZOLE 40 MG/10 ML VIAL INJ IV ONE (23:39)
[2024-10-09] VITALS (13 sets, daily range): BP systolic 136; BP diastolic 73; PULSE 77–114; RESP 16–28; TEMP 97.7; O2SAT 97–100
[2024-10-09 00:01] LABS: Opiate Scree,Urine Neg (NEGATIVE)
[2024-10-09 00:02] LABS: Amphetamine Screen, Urine Neg (NEGATIVE); Barbiturate Scree,Urine Neg (NEGATIVE); Benzodiazephine Screen, Urine Pos (NEGATIVE); Cannabinoid Screen, Urine Neg (NEGATIVE); Cocaine Screen, Urine Neg (NEGATIVE); Phencyclidine Screen, Urine Neg (NEGATIVE)
[2024-10-09] MEDS: LEVALBUTEROL HCL 1.25 MG/3 ML NEB NEB SCH (00:17)
[2024-10-09] MEDS: MAGNESIUM SULFATE 1GM/100ML 100 ML IV SCH (02:45)
[2024-10-09 05:36] LABS: Basophils # (auto) 0 10 ^3/uL (0-0.2); Basophils % (auto) 0.1 % (0.0-2.0); Eosinophils # (auto) 0 10 ^3/uL (0-0.8); Hematocrit 40.9 % (36.0-46.0); Hemoglobin 13.4 g/dL (12.2-16.2); Lymphocytes # (auto) 0.9 10 ^3/uL (0.4-5.4); Mean Corpuscular Hgb Conc. 32.7 g/dL (32.0-36.0); Mean Corpuscular Volume 97.7 fL (80.0-100.0); Monocytes # (auto) 0.1 10 ^3/uL (0-1.3); Monocytes % (auto) 1.6 % (0.0-12.0); Neutrophils # (auto) 4.7 10 ^3/uL (1.6-8.6); Neutrophils % (auto) 82.3 % (37.0-80.0); Nucleated Red Blood Cells % 0.1 %; Platelet Count (auto) 369 10^3/uL (140-450); Red Blood Cells 4.18 10^6/uL (4.0-5.20); Red Cell Distribution Width 14.7 % (11.8-14.3); White Blood Cell 5.8 10^3/uL (4.4-10.8)
[2024-10-09] MEDS: IPRATROPIUM BROM 0.5 MG/2.5ML INH SOL NEB SCH (05:39)
[2024-10-09 05:52] LABS: INR 1.03 (0.9-1.15); Partial Thromboplastin Time 26.1 SEC (24.5-34.5); Prothrombin Time 10.9 sec (9.3-11.8)
[2024-10-09 05:58] LABS: Albumin 3.5 g/dL (3.2-4.8); Alkaline Phosphatase 69 U/L (46-116); Anion Gap 6 (5-15); Aspartate Aminotransferase 18 U/L (13-40); BUN/Creatinine Ratio 14.9 (10.0-20.0); Calcium 9.2 mg/dL (8.7-10.4); Chloride 104 mmol/L (98-107); Sodium 141 mmol/L (136-145); Total Protein 6.7 g/dL (5.7-8.2)
[2024-10-09 05:59] LABS: Bilirubin, Total 0.5 mg/dL (0.2-1.0)
[2024-10-09 06:05] LABS: Alanine Aminotransferase < 9 U/L (7-40); Blood Urea Nitrogen 7 mg/dL (9-23); Carbon Dioxide 31 mmol/L (20-31); Glucose 216 mg/dL (74-106)
--- NOTE | 2024-10-09 09:20 | DVHPNRES ---
Progress Note Date Seen: Oct 09, 2024 Resident Creating Document: STEPHANI JOSE RESIDENT Medical Necessity Reason Pt with a Central, PICC or Fol: Yes The following are medically ne: [place] Catheter Subjective Review of Systems CHANDAN BONILLA is a 79-year-old female with past medical history of COPD (on 4.5 L of oxygen at home) CVA with residual deficits, dementia, dyslipidemia, and hypertension brought from the [facility] to the hospital due to altered mental status, and decreased oral intake. Due to ALOC of patient history was taken from the daughter on the phone. Per patient's daughter she has been more altered and increased shortness of breaths recently, but could not provide more detailed history. Patient was previously on hospice care due to advanced COPD but has recently revoked. PMHx: COPD (on 4.5 L of oxygen at home) CVA with residual deficits, dementia, dyslipidemia, and hypertension PSHx: Right hip surgery, peripheral angioplasty due to PID, and tonsillectomy Family history: Noncontributory Social history: Ex-smoker, denies any other drug use lives at [facility]. Home medication: Aspirin, docusate furosemide, hydrochlorothiazide, metoprolol, ropinirole, rosuvastatin Allergic history: Iodine, sulfa antibiotic, egg and erythromycin Patient seen and examined at the bedside. Patient is altered and could not provide proper history. Objective vital signs Vital Sign Date Time Temp Pulse Resp B/P (MAP) Pulse Ox O2 Delivery O2 Flow Rate FiO2 10/09/24 08:00 97.3 94 19 130/78 (95) 98 97.3 10/09/24 08:00 Nasal Cannula* 2 28 Total Intake and Output 10/08/24 10/08/24 10/09/24 15:00 23:00 07:00 Intake Total 687.5 ml Balance 687.5 ml medications Current Medications Medications Dose Ordered Sig/Ileana Route Start Time Stop Time Status Last Admin Dose Admin Acetaminophen 650 mg Q6HP PRN PO 10/08/24 23:00 Acetaminophen/ Hydrocodone Bitart 1 tab Q4HP PRN PO 10/08/24 23:00 Enoxaparin Sodium 40 mg DAILY SC 10/09/24 10:00 Sodium Chloride 1,000 ml @ 75 mls/hr [id number] IV 10/08/24 23:00 10/08/24 23:30 75 MLS/HR Vancomycin HCl 0 ml @ 0 mls/hr UD IV 10/08/24 23:00 Cefepime HCl 50 ml @ 12.5 mls/hr Q12HR IV 10/09/24 10:00 Aspirin 81 mg DAILY PO 10/09/24 10:00 Atorvastatin Calcium 40 mg HS PO 10/09/24 22:00 Methylprednisolone Sodium Succinate 40 mg DAILY IV 10/09/24 10:00 Ipratropium Serafina 0.5 mg Q6HWA NEB 10/09/24 06:00 10/09/24 05:39 0.5 MG Levalbuterol HCl 0.625 mg Q6HR NEB 10/09/24 00:00 10/09/24 05:39 0.625 MG Pantoprazole Sodium 40 mg DAILY IV 10/09/24 10:00 Vancomycin HCl 250 ml @ 200 mls/hr Q12H IV 10/09/24 15:00 Diagnostic Test (Pha) 1 strip ACHS 10/09/24 11:30 UNV Insulin Human Regular ACHS SC 10/09/24 11:30 UNV Dextrose 50 ml UD PRN IV 10/09/24 09:30 UNV Examination General Appearance: Alert, oriented to person, disoriented to time and place HEENT: Atraumatic, PERRLA, EOMI, Mucous membrane moist/pink Respiratory: Clear to auscultation, Normal air movement Cardiovascular: Regular rate, Normal S1, Normal S2, No murmurs, no chest wall tenderness Abdominal: Normal bowel sounds, Soft, No tenderness, No hepatospenomegaly, No masses Extremities: Sacral area grade 1-2 bedsore Skin: No rashes, No breakdown, No significant lesion Neuro: Normal gait, Normal speech, Unable to obtain complete neurological examinations Psych/Mental Status: Mental status NL, Mood NL laboratory and microbiology Laboratory Tests 10/09/24 05:17 Test 10/09/24 05:17 Range/Units Serum Glucose 216 H 74-106 mg/dL Labs and/or images reviewed: Labs reviewed by me, Image(s) reviewed by me Problem List/Assessment/Plan Problem List/Assessment/Plan # Acute toxic/metabolic encephalopathy likely due to below # Acute on chronic hypoxic respiratory failure, present on admission # COPD exacerbation - Telemetry - Cirrently on 3L NC - currently cefepime, doxycycline - Blood/urine/sputum culture - Breathing treatments along with Solu-Medrol 40 daily - continuously monitor - delirium precautions # ? Sepsis # Acute complicated UTI - evident on urinalysis - ordered urine bacterial culture - currently giving cefepime # H/o dementia - delirium precautions # sacral ulcer likely stage II - wound consult DIET: Cardiac diet DVT PROPHYLAXIS: Lovenox GI PROPHYLAXIS: Protonix Goal of care discussed for more than 29 minutes with the patient's daughter, DNR Case discussed with Dr. Gongora, patient and nurse Plan discussed with: Daughter My Orders My Orders Orders - STEPHANI JOSE RESIDENT Procedure Category Date Status Time Glucose Blood PHA 10/09/24 Logged (Accu-Chek Comfort 11:30 Insulin R (Human) PHA 10/09/24 Logged (Insulin R) 11:30 Dextrose 50% Syringe PHA 10/09/24 Logged 09:30 Date of Service: Oct 09, 2024 Billing Provider: SANTOSH BAILEY MD Common Visit Codes: [id number] INP/OBS CARE(HIGH) STEPHANI JOSE RESIDENT Oct 09, 2024 09:20 SANTOSH BAILEY MD Oct 14, 2024 00:29
[2024-10-09] MEDS ORDERED: DEXTROSE (50%) 50ML SYRG IV PRN (09:30)
[2024-10-09] MEDS ORDERED: AZITHROMYCIN 500MG/ 250ML 250 ML IV ONE (10:15)
--- NOTE | 2024-10-09 10:33 | ECG ---
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
[2024-10-09] MEDS: ACCU-CHEK COMFORT CURVE STRIP VI SCH (11:30)
[2024-10-09] MEDS: ASPirin 81 mg TAB PO SCH (12:12)
[2024-10-09] MEDS: ENOXAPARIN SOD 40 MG/0.4 ML SYRINGE SC SCH (12:13)
[2024-10-09] MEDS: CEFEPIME 1GM/ 50ML 50 ML IV SCH (12:13)
[2024-10-09] MEDS: methylPREDNISolone SOD SUCC 40 MG/ML VL IV SCH (12:13)
[2024-10-09] MEDS: InsuLIN REG 1unit/0.01ml Soln (100units/ml) SC SCH (12:15)
[2024-10-09] MEDS: PANTOPRAZOLE 40 MG/10 ML VIAL INJ IV SCH (12:51)
[2024-10-09] MEDS ORDERED: VANCOMYCIN 1GM/250ML KIT 250 ML IV SCH (15:00)
[2024-10-09 15:09] LABS: COVID19 ANTIGEN SOFIA FIA NEGATIVE (NEGATIVE); Rapid Influenza A Negative (Negative); Rapid Influenza B Negative (Negative)
[2024-10-09 15:40] LABS: Base Excess 5.1 mmol/L (-2.0-3.0)
[2024-10-09] MEDS: DOXYCYCLINE 100MG/100ML 100 ML IV SCH (16:04)
[2024-10-10] VITALS (15 sets, daily range): BP systolic 100–139; BP diastolic 53–94; PULSE 64–113; RESP 17–20; TEMP 97.6–98.1; O2SAT 96–99
[2024-10-10] MEDS: ATORVASTATIN 20 MG TAB PO SCH (01:40)
[2024-10-10 08:45] LABS: Basophils # (auto) 0.1 10 ^3/uL (0-0.2); Basophils % (auto) 0.5 % (0.0-2.0); Eosinophils # (auto) 0 10 ^3/uL (0-0.8); Eosinophils % (auto) 0.1 % (0.0-7.0); Hematocrit 38.6 % (36.0-46.0); Hemoglobin 12.5 g/dL (12.2-16.2); Lymphocytes # (auto) 1.6 10 ^3/uL (0.4-5.4); Lymphocytes % (auto) 15.4 % (10.0-50.0); Mean Corpuscular Hemoglobin 31.7 pg (28.0-32.0); Mean Corpuscular Hgb Conc. 32.3 g/dL (32.0-36.0); Monocytes # (auto) 0.7 10 ^3/uL (0-1.3); Platelet Count (auto) 412 10^3/uL (140-450); Red Blood Cells 3.94 10^6/uL (4.0-5.20); Red Cell Distribution Width 14.6 % (11.8-14.3); White Blood Cell 10.3 10^3/uL (4.4-10.8)
[2024-10-10 08:54] LABS: Chloride 105 mmol/L (98-107); Sodium 143 mmol/L (136-145)
[2024-10-10 08:55] LABS: Anion Gap 5 (5-15); Calcium 9.3 mg/dL (8.7-10.4)
[2024-10-10 09:00] LABS: BUN/Creatinine Ratio 11.8 (10.0-20.0)
[2024-10-10 09:02] LABS: Blood Urea Nitrogen 6 mg/dL (9-23); Carbon Dioxide 33 mmol/L (20-31); Glucose 165 mg/dL (74-106)
[2024-10-10] MEDS ORDERED: AZITHROMYCIN 500MG/ 250ML 250 ML IV SCH (10:00)
--- NOTE | 2024-10-10 10:42 | DVHPNRES ---
Progress Note Date Seen: Oct 10, 2024 Resident Creating Document: STEPHANI JOSE RESIDENT Medical Necessity Reason Pt with a Central, PICC or Fol: Yes The following are medically ne: Medina Catheter Subjective Review of Systems CHANDAN BONILLA is a 79-year-old female with past medical history of COPD (on 4.5 L of oxygen at home) CVA with residual deficits, dementia, dyslipidemia, and hypertension brought from the [facility] to the hospital due to altered mental status, and decreased oral intake. Patient seen and examined at the bedside. Patient reported improvement in her symptoms since admission. Patient reports: No new complaints, Feels better Objective vital signs Vital Sign Date Time Temp Pulse Resp B/P (MAP) Pulse Ox O2 Delivery O2 Flow Rate FiO2 10/10/24 07:07 104 20 10/10/24 07:05 99 10/10/24 07:03 Nasal Cannula 4.0 10/10/24 07:03 36 10/10/24 05:00 98.0 130/70 (90) 98.0 Total Intake and Output 10/09/24 10/09/24 10/10/24 15:00 23:00 07:00 Intake Total 562.5 ml 325 ml 200 ml Output Total 100 ml Balance 562.5 ml 325 ml 100 ml medications Current Medications Medications Dose Ordered Sig/Ileana Route Start Time Stop Time Status Last Admin Dose Admin Acetaminophen 650 mg Q6HP PRN PO 10/08/24 23:00 Acetaminophen/ Hydrocodone Bitart 1 tab Q4HP PRN PO 10/08/24 23:00 Enoxaparin Sodium 40 mg DAILY SC 10/09/24 10:00 10/10/24 09:51 40 MG Sodium Chloride 1,000 ml @ 75 mls/hr [id number] IV 10/08/24 23:00 10/10/24 01:40 75 MLS/HR Cefepime HCl 50 ml @ 12.5 mls/hr Q12HR IV 10/09/24 10:00 10/10/24 09:50 12.5 MLS/HR Aspirin 81 mg DAILY PO 10/09/24 10:00 10/10/24 09:51 81 MG Atorvastatin Calcium 40 mg HS PO 10/09/24 22:00 10/10/24 01:40 40 MG Methylprednisolone Sodium Succinate 40 mg DAILY IV 10/09/24 10:00 10/10/24 09:50 40 MG Ipratropium [place] 0.5 mg Q6HWA NEB 10/09/24 06:00 10/10/24 07:03 0.5 MG Levalbuterol HCl 0.625 mg Q6HR NEB 10/09/24 00:00 10/10/24 07:03 0.625 MG Pantoprazole Sodium 40 mg DAILY IV 10/09/24 10:00 10/10/24 09:50 40 MG Diagnostic Test (Pha) 1 strip ACHS 10/09/24 11:30 10/10/24 06:54 1 STRIP Insulin Human Regular ACHS SC 10/09/24 11:30 10/09/24 18:55 2 UNITS Dextrose 50 ml UD PRN IV 10/09/24 09:30 Doxycycline Hyclate 100 ml @ 50 mls/hr Q12H IV 10/09/24 15:45 10/10/24 03:50 50 MLS/HR Examination General Appearance: Alert, oriented to person and place, disoriented to time HEENT: Atraumatic, PERRLA, EOMI, Mucous membrane moist/pink Respiratory: Clear to auscultation, Normal air movement Cardiovascular: Regular rate, Normal S1, Normal S2, No murmurs, no chest wall tenderness Abdominal: Normal bowel sounds, Soft, No tenderness, No hepatospenomegaly, No masses Extremities: Sacral area grade 1-2 bedsore Skin: No rashes, No breakdown, No significant lesion Neuro: Normal gait, slow speech, Residual left-sided weakness from past CVA Psych/Mental Status: Mental status NL, Mood NL laboratory and microbiology Laboratory Tests 10/10/24 08:28 Test 10/10/24 08:28 Range/Units Serum Glucose 165 H 74-106 mg/dL Microbiology Date/Time Source Procedure Growth Status 10/08/24 18:01 Blood Blood Culture - Preliminary NO GROWTH AFTER 24 HOURS OF INCUBATION. Resulted Labs and/or images reviewed: Labs reviewed by me, Image(s) reviewed by me Problem List/Assessment/Plan Problem List/Assessment/Plan # Acute toxic/metabolic encephalopathy likely due to below # Acute on chronic hypoxic respiratory failure, present on admission # COPD exacerbation - Telemetry - Cirrently on 3L NC - currently cefepime, doxycycline - Blood/urine/sputum culture - Breathing treatments along with Solu-Medrol 40 daily - continuously monitor - delirium precautions # ? Sepsis # Acute complicated UTI - evident on urinalysis - ordered urine bacterial culture - currently giving cefepime # H/o dementia - delirium precautions # sacral ulcer likely stage II - wound consult # Hypokalemia - Repleting - Monitor lab DIET: Cardiac diet DVT PROPHYLAXIS: Lovenox GI PROPHYLAXIS: Protonix Goal of care discussed for more than 29 minutes with the patient's daughter, DNR Case discussed with Dr. Gongora, patient and nurse Plan discussed with: Patient My Orders My Orders Orders - STEPHANI JOSE RESIDENT Procedure Category Date Status Time Doxycycline PHA 10/09/24 In Process 100mg/100ml 15:45 * Title Vehicle Service Attendant CONS 10/09/24 Transmitted Consult Date of Service: Oct 10, 2024 Billing Provider: SANTOSH BAILEY MD Common Visit Codes: [id number] INP/OBS CARE(HIGH) STEPHANI JOSE RESIDENT Oct 10, 2024 10:42 SANTOSH BAILEY MD Oct 14, 2024 00:46
[2024-10-10] MEDS: POTASSIUM EFFERVESENT TAB 25 MEQ PO ONE (11:11)
[2024-10-10] MEDS: MAGNESIUM SULFATE 1GM/100ML 100 ML IV ONE (14:51)
--- NOTE | 2024-10-10 17:26 | DVHSR ---
APPROVED REPORT EXAM: LIMITED Two-dimensional and M-mode echocardiogram with Doppler and color Doppler. Blood Pressure: 131/75 mmHg INDICATION HF? RISK FACTORS Obesity: Height: 4'6, Weight: 160 DIMENSIONS LVDd4.1 (3.8-5.7cm)LA (2D)3.9 (1.9-4.0cm)Aortic Root2.7 (2.0-3.7cm) LVDs2.8 (2.5-4.0cm)LA (MM) (1.9-4.0cm)Aortic Cusp Exc1.2 (1.5-2.0cm) EF (%) 60.0 (55-70%)Rt. Atrium3.4 (1.9-4.0cm)Asc. Aorta3.9 cm IVSd1.2 (0.7-1.1cm)RV (D)3.2 (1.8-2.4cm) PWd0.9 (0.7-1.1cm) Mitral Valve MitralMitral Stenosis E wave0.86m/sMV Mean GR.mmHg A wave0.79m/sMV Peak GR.115mmHg E/A ratio1.12D MVAcm2 DECEL [id number] 1/2 Tim[place] Aortic Valve Aortic ValveAortic Stenosis V10.71m/Hubert Mean GR.4mmHg V21.27m/Hubert Peak GR.6mmHg LVOT Diameter1.7 (1.8-2.4cm)Doppler AVA1.27cm2 Pulmonic Valve V20.91m/s Tricuspid Valve TR Velocity3.23m/s [id number] Other Information Quality : Technically LimitedRhythm : Technically limited study due to pt uncooperative Conclusion Technically good study. Sinus rhythm. Concentric LVH with left atrial enlargement. Mild mitral annular calcification. Calcification of the base of the posterior mitral leaflet. Mild dilation of the sinuses of Valsalva. Mild aortic sclerosis. Tricuspid and pulmonic or structurally normal. Left ventricular function is preserved at 60% with normal RV function. Moderate tricuspid regurgitation. No pericardial effusion masses or vegetations.
[2024-10-10] MEDS: HYDROcodone-ACET 5/325MG TAB PO PRN (20:15)
[2024-10-10] MEDS: LORazepam 0.5 MG TAB PO ONE (23:56)
[2024-10-11] VITALS (14 sets, daily range): BP systolic 93–157; BP diastolic 57–91; PULSE 63–110; RESP 18–81; TEMP 97.1–98.2; O2SAT 97–100
[2024-10-11 11:21] LABS: Basophils # (auto) 0 10 ^3/uL (0-0.2); Basophils % (auto) 0.1 % (0.0-2.0); Eosinophils # (auto) 0 10 ^3/uL (0-0.8); Eosinophils % (auto) 0.3 % (0.0-7.0); Hematocrit 34.4 % (36.0-46.0); Hemoglobin 11.1 g/dL (12.2-16.2); Lymphocytes # (auto) 1.6 10 ^3/uL (0.4-5.4); Mean Corpuscular Hemoglobin 31.6 pg (28.0-32.0); Mean Corpuscular Hgb Conc. 32.2 g/dL (32.0-36.0); Mean Corpuscular Volume 97.9 fL (80.0-100.0); Monocytes # (auto) 0.9 10 ^3/uL (0-1.3); Monocytes % (auto) 8.3 % (0.0-12.0); Neutrophils # (auto) 8.4 10 ^3/uL (1.6-8.6); Neutrophils % (auto) 76.3 % (37.0-80.0); Platelet Count (auto) 350 10^3/uL (140-450); Red Blood Cells 3.51 10^6/uL (4.0-5.20); Red Cell Distribution Width 14.6 % (11.8-14.3)
[2024-10-11 11:27] LABS: Chloride 106 mmol/L (98-107); Sodium 144 mmol/L (136-145)
[2024-10-11 11:28] LABS: Anion Gap 5 (5-15); Calcium 9.2 mg/dL (8.7-10.4)
[2024-10-11 11:29] LABS: Carbon Dioxide 33 mmol/L (20-31); Potassium 3.4 mmol/L (3.5-5.1)
[2024-10-11 11:34] LABS: BUN/Creatinine Ratio 18.4 (10.0-20.0)
[2024-10-11 11:38] LABS: Blood Urea Nitrogen 7 mg/dL (9-23); Glucose 174 mg/dL (74-106)
--- NOTE | 2024-10-11 14:41 | DVHPNRES ---
Progress Note Date Seen: Oct 11, 2024 Resident Creating Document: STEPHANI JOSE RESIDENT Medical Necessity Reason Pt with a Central, PICC or Fol: Yes The following are medically ne: Medina Catheter Subjective Review of Systems CHANDAN BONLILA is a 79-year-old female with past medical history of COPD (on 4.5 L of oxygen at home) CVA with residual deficits, dementia, dyslipidemia, and hypertension brought from the [facility] to the hospital due to altered mental status, and decreased oral intake. Patient seen and examined at the bedside. Patient reported improvement in her symptoms since admission. Patient reports: No new complaints, Feels better Objective vital signs Vital Sign Date Time Temp Pulse Resp B/P (MAP) Pulse Ox O2 Delivery O2 Flow Rate FiO2 10/11/24 08:52 97.7 101 18 110/68 (82) 99 97.7 10/11/24 06:46 Nasal Cannula 4.0 10/11/24 06:46 36 Total Intake and Output 10/10/24 10/10/24 10/11/24 15:00 23:00 07:00 Intake Total 50 ml 560 ml 550 ml Output Total 1150 ml 750 ml Balance 50 ml -590 ml -200 ml medications Current Medications Medications Dose Ordered Sig/Ileana Route Start Time Stop Time Status Last Admin Dose Admin Acetaminophen 650 mg Q6HP PRN PO 10/08/24 23:00 Acetaminophen/ Hydrocodone Bitart 1 tab Q4HP PRN PO 10/08/24 23:00 10/10/24 20:15 1 TAB Enoxaparin Sodium 40 mg DAILY SC 10/09/24 10:00 10/10/24 09:51 40 MG Sodium Chloride 1,000 ml @ 75 mls/hr [id number] IV 10/08/24 23:00 10/11/24 03:53 75 MLS/HR Aspirin 81 mg DAILY PO 10/09/24 10:00 10/10/24 09:51 81 MG Atorvastatin Calcium 40 mg HS PO 10/09/24 22:00 10/10/24 21:45 40 MG Methylprednisolone Sodium Succinate 40 mg DAILY IV 10/09/24 10:00 10/11/24 10:06 40 MG Ipratropium [place] 0.5 mg Q6HWA NEB 10/09/24 06:00 10/11/24 06:46 0.5 MG Levalbuterol HCl 0.625 mg Q6HR NEB 10/09/24 00:00 10/11/24 06:47 0.625 MG Pantoprazole Sodium 40 mg DAILY IV 10/09/24 10:00 10/11/24 10:06 40 MG Diagnostic Test (Pha) 1 strip ACHS 10/09/24 11:30 10/11/24 11:17 1 STRIP Insulin Human Regular ACHS SC 10/09/24 11:30 10/11/24 11:37 3 UNITS Dextrose 50 ml UD PRN IV 10/09/24 09:30 Doxycycline Hyclate 100 ml @ 50 mls/hr Q12H IV 10/09/24 15:45 10/11/24 03:53 50 MLS/HR Linezolid 300 ml @ 150 mls/hr Q12HR IV 10/11/24 22:00 Examination General Appearance: Alert, oriented to person and place, disoriented to time HEENT: Atraumatic, PERRLA, EOMI, Mucous membrane moist/pink Respiratory: Clear to auscultation, Normal air movement Cardiovascular: Regular rate, Normal S1, Normal S2, No murmurs, no chest wall tenderness Abdominal: Normal bowel sounds, Soft, No tenderness, No hepatospenomegaly, No masses Extremities: Sacral area grade 1-2 bedsore Skin: No rashes, No breakdown, No significant lesion Neuro: Normal gait, slow speech, Residual left-sided weakness from past CVA Psych/Mental Status: Mental status NL, Mood NL laboratory and microbiology Laboratory Tests 10/11/24 10:52 Test 10/11/24 10:52 Range/Units Serum Glucose 174 H 74-106 mg/dL Microbiology Date/Time Source Procedure Growth Status 10/09/24 14:00 Nose MRSA Screen - Final Complete 10/08/24 22:45 Voided Urine Urine Culture - Preliminary Enterococcus faecium - VRE Resulted 10/08/24 18:01 Blood Blood Culture - Preliminary NO GROWTH AFTER 48 HOURS OF INCUBATION. Resulted Labs and/or images reviewed: Labs reviewed by me, Image(s) reviewed by me Problem List/Assessment/Plan Problem List/Assessment/Plan # Acute toxic/metabolic encephalopathy likely due to below # Acute on chronic hypoxic respiratory failure, present on admission # COPD exacerbation - Telemetry - Cirrently on 3L NC - currently, doxycycline - Blood/urine/sputum culture - Breathing treatments along with Solu-Medrol 40 daily - continuously monitor - delirium precautions # ? Sepsis # Acute complicated UTI due to VRE - evident on urinalysis - ordered urine bacterial culture, growing VRE - DC cefepime, started on Zyvox # H/o dementia - delirium precautions # sacral ulcer likely stage II - wound consult # Hypokalemia - Repleting - Monitor lab DIET: Cardiac diet DVT PROPHYLAXIS: Lovenox GI PROPHYLAXIS: Protonix Goal of care discussed for more than 29 minutes with the patient's daughter, DNR Case discussed with Dr. Gongora, patient and nurse Plan discussed with: Patient My Orders My Orders Orders - STEPHANI JOSE Procedure Category Date Status Time Linezolid 600mg/300ml PHA 10/11/24 In Process (Zyvox) 22:00 Transfer Orders XFER 10/11/24 Transmitted 12:04 Date of Service: Oct 11, 2024 Billing Provider: SANTOSH BAILEY MD Common Visit Codes: [id number] INP/OBS CARE(HIGH) STEPHANI JOSE Oct 11, 2024 14:41 SANTOSH BAILEY MD Oct 14, 2024 01:06
[2024-10-11] MEDS: LINEZOLID 600MG/300ML 300 ML IV ONE (15:07)
[2024-10-11] MEDS: LINEZOLID 600MG/300ML 300 ML IV SCH (21:41)
[2024-10-11] MEDS: LORazepam 2MG/ML-1ML VIAL IV PRN (22:04)
[2024-10-12] VITALS (15 sets, daily range): BP systolic 130–149; BP diastolic 74–86; PULSE 73–112; RESP 17–20; TEMP 96.4–98.2; O2SAT 91–100
[2024-10-12 09:20] LABS: Chloride 103 mmol/L (98-107); Sodium 142 mmol/L (136-145)
[2024-10-12 09:21] LABS: Anion Gap 5 (5-15)
[2024-10-12 09:22] LABS: Calcium 9.1 mg/dL (8.7-10.4)
[2024-10-12 09:26] LABS: Carbon Dioxide 34 mmol/L (20-31); Glucose 106 mg/dL (74-106); Potassium 3.2 mmol/L (3.5-5.1)
[2024-10-12 09:27] LABS: BUN/Creatinine Ratio 13.6 (10.0-20.0); Blood Urea Nitrogen 6 mg/dL (9-23)
[2024-10-12] MEDS: POTASSIUM EFFERVESENT TAB 25 MEQ PO ONE (11:28)
--- NOTE | 2024-10-12 11:29 | DVHPNRES ---
Progress Note Date Seen: Oct 12, 2024 Resident Creating Document: CICI ELLISON RESIDENT Medical Necessity Reason Pt with a Central, PICC or Fol: Yes The following are medically ne: Medina Catheter Subjective Review of Systems The patient was seen and examined on the bedside. She is alert oriented x2 and on 3L O2. Complaint of complaint of cough, mucus and shortness of breath. No other active complaint. Objective vital signs Vital Sign Date Time Temp Pulse Resp B/P (MAP) Pulse Ox O2 Delivery O2 Flow Rate FiO2 10/12/24 09:00 98.2 92 18 137/77 (97) 97 98.2 10/12/24 08:00 Nasal Cannula* 4 36 Total Intake and Output 10/11/24 10/11/24 10/12/24 15:00 23:00 07:00 Intake Total 50 ml 400 ml 920 ml Output Total 1825 ml Balance 50 ml 400 ml -905 ml medications Current Medications Medications Dose Ordered Sig/Ileana Route Start Time Stop Time Status Last Admin Dose Admin Acetaminophen 650 mg Q6HP PRN PO 10/08/24 23:00 Acetaminophen/ Hydrocodone Bitart 1 tab Q4HP PRN PO 10/08/24 23:00 10/10/24 20:15 1 TAB Enoxaparin Sodium 40 mg DAILY SC 10/09/24 10:00 10/12/24 11:16 40 MG Sodium Chloride 1,000 ml @ 75 mls/hr [id number] IV 10/08/24 23:00 10/11/24 03:53 75 MLS/HR Aspirin 81 mg DAILY PO 10/09/24 10:00 10/12/24 11:14 81 MG Atorvastatin Calcium 40 mg HS PO 10/09/24 22:00 10/11/24 21:41 40 MG Methylprednisolone Sodium Succinate 40 mg DAILY IV 10/09/24 10:00 10/12/24 11:14 40 MG Ipratropium [place] 0.5 mg Q6HWA NEB 10/09/24 06:00 10/12/24 06:07 0.5 MG Levalbuterol HCl 0.625 mg Q6HR NEB 10/09/24 00:00 10/12/24 06:07 0.625 MG Pantoprazole Sodium 40 mg DAILY IV 10/09/24 10:00 10/12/24 11:15 40 MG Diagnostic Test (Pha) 1 strip ACHS 10/09/24 11:30 10/12/24 11:17 1 STRIP Insulin Human Regular ACHS SC 10/09/24 11:30 10/12/24 06:25 2 UNITS Dextrose 50 ml UD PRN IV 10/09/24 09:30 Doxycycline Hyclate 100 ml @ 50 mls/hr Q12H IV 10/09/24 15:45 10/12/24 03:39 50 MLS/HR Linezolid 300 ml @ 150 mls/hr Q12HR IV 10/11/24 22:00 10/12/24 11:16 150 MLS/HR Lorazepam 1 mg Q6HP PRN IV 10/11/24 17:00 10/11/24 22:04 1 MG Examination Physical examination: General Appearance: Alert, Oriented X2, Cooperative, mild distress and on 3L O2 HEENT: Atraumatic, PERRLA, EOMI, Mucous membrane moist/pink Respiratory: Bilateral scattered wheezes. Cardiovascular: Regular rate, Normal S1, Normal S2, No murmurs, no chest wall tenderness Abdominal: Normal bowel sounds, Soft, No tenderness, No hepatospenomegaly, No masses Extremities: No clubbing, No cyanosis, No edema, Normal pulses, No tenderness/swelling Skin: Stage 2 sacral ulcer. Neuro: Lt sided weakness, Normal speech, Strength at 5/5 X2 ext, Normal tone, Sensation intact,grossly intact cranial nerves. Psych/Mental Status: Mental status NL, Mood NL laboratory and microbiology Laboratory Tests 10/12/24 08:54 10/11/24 10:52 Test 10/12/24 08:54 Range/Units Serum Glucose 106 74-106 mg/dL Microbiology Date/Time Source Procedure Growth Status 10/09/24 14:00 Nose MRSA Screen - Final Complete 10/08/24 22:45 Voided Urine Urine Culture - Final Enterococcus faecium - VRE Presumptive Selina albicans Complete 10/08/24 18:01 Blood Blood Culture - Preliminary NO GROWTH AFTER 72 HOURS OF INCUBATION. Resulted Labs and/or images reviewed: Labs reviewed by me, Image(s) reviewed by me Problem List/Assessment/Plan Problem List/Assessment/Plan Assessment and plan: # Acute toxic/metabolic encephalopathy likely due to below # Acute on chronic hypoxic respiratory failure likely due to COPD exacerbation - Telemetry - Currently on 3L NC - IV doxycycline 100 mg b.i.d. - Blood culture preliminary report revealed no growth in 24 hours of incubation - Medneb with ipratropium and levalbuterol q.6 hours - IV Solu-Medrol 40 mg daily - Delirium precautions # ? Sepsis # Acute complicated UTI due to VRE - evident on urinalysis - ordered urine bacterial culture, growing VRE - IV Linezolid 600 mg b.i.d. # H/o dementia - delirium precautions # sacral ulcer likely stage II; present on admission - wound consult # Hypokalemia - Replenished - Monitor BMP DIET: Cardiac diet DVT PROPHYLAXIS: Lovenox GI PROPHYLAXIS: Protonix Goals of care discussed for 20 minutes; DNR Plan discussed with Dr. Saleem Plan discussed with: Patient, Other (Nurse) Dietary Evaluation Review Comments: 1) CCHO 45gm + cardiac diet 2) MVI 1 tab daily, VitC 500mg BID, Zinc sulfate 220mg daily x 10 days 3) Continue current plan of care Expected Outcomes/Goals: Pt will meet >75% estimated needs Fu 3-5 days Addendum Addendum Addendum I was physically present for the oliver portions of the service provided to patient by THE RESIDENT. I have reviewed the documentation, discussed the case with resident and agree with the resident's documentation except as noted. Also the patient's clinical case was discussed with the patient's nurse. This medical document was created using an electronic medical record system with computerized dictation system. Although this document has been carefully reviewed, there might still be some phonetic and typographical errors. These areas are purely typographical due to imperfections of the software programs, and do not reflect any compromise in the patient's medical care. Late signature. Date of Service: Oct 12, 2024 Billing Provider: CAROLYN SALEEM MD Common Visit Codes: [id number] INP/OBS CARE(HIGH) Secondary Visit Codes: [id number] CARE PLAN 30 MINUTES (20 minutes) CICI ELLISON RESIDENT Oct 12, 2024 11:29 CAROLYN SALEEM MD Oct 12, 2024 17:36
[2024-10-13] VITALS (13 sets, daily range): BP systolic 110–161; BP diastolic 69–96; PULSE 50–115; RESP 18–20; TEMP 97.6–98.1; O2SAT 90–100
[2024-10-13] MEDS ORDERED: POTASSIUM EFFERVESENT TAB 25 MEQ PO ONE (07:45)
[2024-10-13 07:54] LABS: Basophils # (auto) 0.1 10 ^3/uL (0-0.2); Basophils % (auto) 0.5 % (0.0-2.0); Eosinophils # (auto) 0.1 10 ^3/uL (0-0.8); Eosinophils % (auto) 0.6 % (0.0-7.0); Hematocrit 37.2 % (36.0-46.0); Hemoglobin 12.3 g/dL (12.2-16.2); Lymphocytes # (auto) 2.2 10 ^3/uL (0.4-5.4); Lymphocytes % (auto) 16.5 % (10.0-50.0); Mean Corpuscular Hemoglobin 32.4 pg (28.0-32.0); Mean Corpuscular Hgb Conc. 33.1 g/dL (32.0-36.0); Mean Corpuscular Volume 97.9 fL (80.0-100.0); Monocytes # (auto) 1.1 10 ^3/uL (0-1.3); Monocytes % (auto) 8.3 % (0.0-12.0); Neutrophils % (auto) 74.1 % (37.0-80.0); Platelet Count (auto) 383 10^3/uL (140-450); Red Cell Distribution Width 14.6 % (11.8-14.3); White Blood Cell 13.5 10^3/uL (4.4-10.8)
[2024-10-13 08:16] LABS: Anion Gap 9 (5-15); Chloride 99 mmol/L (98-107); Sodium 141 mmol/L (136-145)
[2024-10-13 08:17] LABS: Calcium 9.4 mg/dL (8.7-10.4)
[2024-10-13 08:19] LABS: Carbon Dioxide 33 mmol/L (20-31); Potassium 3.4 mmol/L (3.5-5.1)
[2024-10-13 08:22] LABS: BUN/Creatinine Ratio 10.6 (10.0-20.0)
[2024-10-13 08:29] LABS: Blood Urea Nitrogen 5 mg/dL (9-23); Glucose 131 mg/dL (74-106)
[2024-10-13] MEDS: POTASSIUM EFFERVESENT TAB 25 MEQ PO ONE (09:33)
[2024-10-13] MEDS ORDERED: guaiFENesin-DM 100/10mg/5ml SYR PO PRN (11:00)
--- NOTE | 2024-10-13 11:12 | DVHPNRES ---
Progress Note Date Seen: Oct 13, 2024 Resident Creating Document: STEPHANI JOSE RESIDENT Medical Necessity Reason Pt with a Central, PICC or Fol: Yes The following are medically ne: Medina Catheter Subjective Review of Systems CHANDAN BONILLA is a 79-year-old female with past medical history of COPD (on 4.5 L of oxygen at home) CVA with residual deficits, dementia, dyslipidemia, and hypertension brought from the [facility] to the hospital due to altered mental status, and decreased oral intake. Patient seen and examined at the bedside, Family at bedside. Patient is alert and active today, reported having mild cough, and diarrhea, started Flagyl and given Robitussin. Objective vital signs Vital Sign Date Time Temp Pulse Resp B/P (MAP) Pulse Ox O2 Delivery O2 Flow Rate FiO2 10/13/24 08:02 88 18 95 Nasal Cannula* 4 36 10/13/24 05:00 98.1 149/96 (113) 98.1 Total Intake and Output 10/12/24 10/12/24 10/13/24 15:00 23:00 07:00 Intake Total 975 ml 655 ml 1300 ml Output Total 1850 ml 1450 ml Balance 975 ml -1195 ml -150 ml medications Current Medications Medications Dose Ordered Sig/Ileana Route Start Time Stop Time Status Last Admin Dose Admin Acetaminophen 650 mg Q6HP PRN PO 10/08/24 23:00 Acetaminophen/ Hydrocodone Bitart 1 tab Q4HP PRN PO 10/08/24 23:00 10/12/24 11:29 1 TAB Enoxaparin Sodium 40 mg DAILY SC 10/09/24 10:00 10/13/24 09:16 40 MG Sodium Chloride 1,000 ml @ 75 mls/hr [id number] IV 10/08/24 23:00 10/12/24 14:10 75 MLS/HR Aspirin 81 mg DAILY PO 10/09/24 10:00 10/13/24 09:28 81 MG Atorvastatin Calcium 40 mg HS PO 10/09/24 22:00 10/12/24 21:59 40 MG Methylprednisolone Sodium Succinate 40 mg DAILY IV 10/09/24 10:00 10/13/24 09:16 40 MG Ipratropium [place] 0.5 mg Q6HWA NEB 10/09/24 06:00 10/13/24 07:12 0.5 MG Levalbuterol HCl 0.625 mg Q6HR NEB 10/09/24 00:00 10/13/24 07:12 0.625 MG Pantoprazole Sodium 40 mg DAILY IV 10/09/24 10:00 10/13/24 09:16 40 MG Diagnostic Test (Pha) 1 strip ACHS 10/09/24 11:30 10/13/24 06:21 1 STRIP Insulin Human Regular ACHS SC 10/09/24 11:30 10/13/24 06:21 2 UNITS Dextrose 50 ml UD PRN IV 10/09/24 09:30 Doxycycline Hyclate 100 ml @ 50 mls/hr Q12H IV 10/09/24 15:45 10/13/24 03:45 50 MLS/HR Linezolid 300 ml @ 150 mls/hr Q12HR IV 10/11/24 22:00 10/13/24 09:16 150 MLS/HR Lorazepam 1 mg Q6HP PRN IV 10/11/24 17:00 10/12/24 16:53 1 MG Ondansetron HCl 4 mg Q8HPRN PRN IV 10/12/24 15:30 Magnesium Sulfate/ Dextrose 100 ml @ 100 mls/hr Q1HR IV 10/13/24 11:00 10/13/24 12:59 Fluconazole 200 mg DAILY PO 10/14/24 10:00 Guaifenesin/ Dextromethorphan 10 ml Q4HP PRN PO 10/13/24 11:00 UNV Metronidazole 100 ml @ 100 mls/hr Q8HR IV 10/13/24 14:00 UNV Examination General Appearance: Alert, Oriented to person and place, disoriented to time HEENT: Atraumatic, PERRLA, EOMI, Mucous membrane moist/pink Respiratory: Clear to auscultation, Normal air movement Cardiovascular: Regular rate, Normal S1, Normal S2, No murmurs Abdominal: Normal bowel sounds, Soft, No tenderness, No hepatosplenomegaly, No masses Extremities: No edema, no cyanosis, no tenderness Skin: Sacral area grade 1-2 bedsore Neuro: Normal gait, slow speech, Residual left-sided weakness from past CVA Nurse was there as a skills auditor during the physical examination laboratory and microbiology Laboratory Tests 10/13/24 07:22 Test 10/13/24 07:22 Range/Units Serum Glucose 131 H 74-106 mg/dL Microbiology Date/Time Source Procedure Growth Status 10/09/24 14:00 Nose MRSA Screen - Final Complete 10/08/24 22:45 Voided Urine Urine Culture - Final Enterococcus faecium - VRE Presumptive Selina albicans Complete 10/08/24 18:01 Blood Blood Culture - Preliminary NO GROWTH AFTER 72 HOURS OF INCUBATION. Resulted Labs and/or images reviewed: Labs reviewed by me, Image(s) reviewed by me Problem List/Assessment/Plan Problem List/Assessment/Plan # Diarrhea - ordered stool studies - started Flagyl # Acute toxic/metabolic encephalopathy likely due to below-improving # Acute on chronic hypoxic respiratory failure, present on admission-improving # COPD exacerbation - Telemetry - Cirrently on 4L NC - currently, doxycycline IV - Blood prelims -no growth - Breathing treatments continue along with Solu-Medrol 40 daily - continuously monitor - delirium precautions # Sepsis from UTI # Acute complicated UTI due to VRE - evident on urinalysis - Urine culture, growing VRE and Selina albicans - started on Zyvox and Diflucan # H/o dementia - delirium precautions # sacral ulcer likely stage II - wound consult # Hypokalemia - Repleting - Monitor lab Cardiac diet Lovenox Protonix Case discussed with Dr. Saleem, patient and nurse Plan discussed with: Patient, Daughter, Other (Nurse) My Orders My Orders Orders - STEPHANI JOSE RESIDENT Procedure Category Date Status Time D/C Sitter ORDERS 10/13/24 Transmitted 09:01 Magnesium Sulfate PHA 10/13/24 In Process 1gm/100ml 11:00 Fluconazole Tablet PHA 10/14/24 In Process (Diflucan Tablet) 10:00 Guaifenesin-Dextromet PHA 10/13/24 Logged Liquid (Robitussin 11:00 Guaifenesin-Dextromet PHA 10/13/24 Logged Liquid (Robitussin 11:00 Metronidazole PHA 10/13/24 Logged 500mg/100ml (Flagyl 14:00 Stool Bacterial FRANCISCO 10/13/24 Uncollected Culture 11:07 Stool Wbc LAB 10/13/24 Logged 11:07 Dietary Evaluation Review Comments: 1) CCHO 45gm + cardiac diet 2) MVI 1 tab daily, VitC 500mg BID, Zinc sulfate 220mg daily x 10 days 3) Continue current plan of care Expected Outcomes/Goals: Pt will meet >75% estimated needs Fu 3-5 days Addendum Addendum Addendum I was physically present for the oliver portions of the service provided to patient by THE RESIDENT. I have reviewed the documentation, discussed the case with resident and agree with the resident's documentation except as noted. Also the patient's clinical case was discussed with the patient's nurse. This medical document was created using an electronic medical record system with computerized dictation system. Although this document has been carefully reviewed, there might still be some phonetic and typographical errors. These areas are purely typographical due to imperfections of the software programs, and do not reflect any compromise in the patient's medical care. Late signature. Date of Service: Oct 13, 2024 Billing Provider: CAROLYN SALEEM MD Common Visit Codes: [id number] INP/OBS CARE(HIGH) STEPHANI JOSE RESIDENT Oct 13, 2024 11:12 CAROLYN SALEEM MD Oct 13, 2024 13:26
[2024-10-13] MEDS: MAGNESIUM SULFATE 1GM/100ML 100 ML IV SCH (11:41)
[2024-10-13] MEDS: guaiFENesin-DM 100/10mg/5ml SYR PO ONE (11:41)
[2024-10-13] MEDS: FLUCONAZOLE 100 MG TAB PO ONE (11:53)
[2024-10-13] MEDS: metroNIDAZOLE 500MG/100ML 100 ML IV SCH (14:34)
[2024-10-13] MEDS ORDERED: levoFLOXacin 500MG 100 ML IV ONE (14:45)
[2024-10-14] VITALS (10 sets, daily range): BP systolic 99–162; BP diastolic 72–94; PULSE 69–101; RESP 14–20; TEMP 97.7–98.4; O2SAT 95–100
[2024-10-14 01:06] LABS: Vitamin D 25-Hydroxy 30 ng/mL (.); Vitamin D-2 25-Hydroxy <1.0 ng/mL (.); Vitamin D-3 25-Hydroxy 29 ng/mL (.)
[2024-10-14] MEDS: amLODIPine BESYLATE 5 MG TAB PO ONE (01:57)
[2024-10-14] MEDS: FLUCONAZOLE 100 MG TAB PO SCH (08:54)
[2024-10-14] MEDS: METOPROLOL TARTRATE 25 MG TAB PO SCH (08:55)
[2024-10-14 09:43] LABS: Basophils # (auto) 0.1 10 ^3/uL (0-0.2); Basophils % (auto) 0.5 % (0.0-2.0); Eosinophils # (auto) 0.1 10 ^3/uL (0-0.8); Eosinophils % (auto) 0.9 % (0.0-7.0); Hematocrit 37.9 % (36.0-46.0); Lymphocytes # (auto) 2.4 10 ^3/uL (0.4-5.4); Lymphocytes % (auto) 16.8 % (10.0-50.0); Mean Corpuscular Hemoglobin 30.8 pg (28.0-32.0); Mean Corpuscular Hgb Conc. 31.5 g/dL (32.0-36.0); Mean Corpuscular Volume 97.8 fL (80.0-100.0); Monocytes # (auto) 1.1 10 ^3/uL (0-1.3); Monocytes % (auto) 7.7 % (0.0-12.0); Neutrophils # (auto) 10.8 10 ^3/uL (1.6-8.6); Neutrophils % (auto) 74.1 % (37.0-80.0); Nucleated Red Blood Cells % 0.1 %; Platelet Count (auto) 400 10^3/uL (140-450); Red Blood Cells 3.87 10^6/uL (4.0-5.20); Red Cell Distribution Width 14.4 % (11.8-14.3); White Blood Cell 14.5 10^3/uL (4.4-10.8)
[2024-10-14 09:58] LABS: Chloride 100 mmol/L (98-107); Sodium 142 mmol/L (136-145)
[2024-10-14 09:59] LABS: Anion Gap 8 (5-15); Calcium 9.5 mg/dL (8.7-10.4)
[2024-10-14] MEDS ORDERED: LINE1TAB6 PO (10:00)
[2024-10-14] MEDS ORDERED: levoFLOXacin 500MG 100 ML IV SCH (10:00)
[2024-10-14] MEDS ORDERED: PRED20TA2 PO (10:00)
[2024-10-14] MEDS ORDERED: DOXY-286 PO (10:00)
[2024-10-14] MEDS ORDERED: DEXT1SYP9 PO (10:00)
[2024-10-14 10:03] LABS: Carbon Dioxide 34 mmol/L (20-31); Potassium 3.3 mmol/L (3.5-5.1)
[2024-10-14 10:04] LABS: BUN/Creatinine Ratio 15.1 (10.0-20.0)
[2024-10-14 10:17] LABS: Blood Urea Nitrogen 8 mg/dL (9-23); Glucose 164 mg/dL (74-106)
--- NOTE | 2024-10-14 13:08 | DVHDSRES ---
Discharge Summary Date of Admission Resident Creating Document: STEPHANI JOSE RESIDENT Oct 08, 2024 at 22:52 Date of Discharge: Oct 14, 2024 Admitting Diagnosis AMS Labs/Diagnostic Data: Laboratory Results Test 10/14/24 11:37 10/14/24 09:30 10/13/24 12:40 10/13/24 07:22 POC Glucose 230 mg/dl (70-106) White Blood Count 14.5 10^3/uL (4.4-10.8) Red Blood Count 3.87 10^6/uL (4.0-5.20) Hemoglobin 12.0 g/dL (12.2-16.2) Hematocrit 37.9 % (36.0-46.0) Mean Corpuscular Volume 97.8 fL (80.0-100.0) Mean Corpuscular Hemoglobin 30.8 pg (28.0-32.0) Mean Corpuscular Hemoglobin Concent 31.5 g/dL (32.0-36.0) Red Cell Distribution Width 14.4 % (11.8-14.3) Platelet Count 400 10^3/uL (140-450) Mean Platelet Volume 7.2 fL (6.9-10.8) Neutrophils (%) (Auto) 74.1 % (37.0-80.0) Lymphocytes (%) (Auto) 16.8 % (10.0-50.0) Monocytes (%) (Auto) 7.7 % (0.0-12.0) Eosinophils (%) (Auto) 0.9 % (0.0-7.0) Basophils (%) (Auto) 0.5 % (0.0-2.0) Neutrophils # (Auto) 10.8 10 ^3/uL (1.6-8.6) Lymphocytes # (Auto) 2.4 10 ^3/uL (0.4-5.4) Monocytes # (Auto) 1.1 10 ^3/uL (0-1.3) Eosinophils # (Auto) 0.1 10 ^3/uL (0-0.8) Basophils # (Auto) 0.1 10 ^3/uL (0-0.2) Nucleated Red Blood Cells 0.1 % Sodium Level 142 mmol/L (136-145) Potassium Level 3.3 mmol/L (3.5-5.1) Chloride Level 100 mmol/L (98-107) Carbon Dioxide Level 34 mmol/L (20-31) Anion Gap 8 (5-15) Blood Urea Nitrogen 8 mg/dL (9-23) Creatinine 0.53 mg/dL (0.550-1.02) Glomerular Filtration Rate Calc 93 mL/min (>90) BUN/Creatinine Ratio 15.1 (10.0-20.0) Serum Glucose 164 mg/dL (74-106) Calcium Level 9.5 mg/dL (8.7-10.4) Stool for White Cells None seen Magnesium Level 1.7 mg/dL (1.6-2.6) Test 10/09/24 15:35 10/09/24 14:00 10/09/24 05:17 10/08/24 23:33 Blood Gas Specimen Type Arterial Blood Gas Sample Site Right radial Blood Gas Patient Temperature 37.0 Arterial Blood Date Drawn [id number] Arterial Blood pH 7.442 (7.350-7.450) Arterial Blood Partial Pressure CO2 44.9 mmHg (32.0-45.0) Arterial Blood Partial Pressure O2 65.8 mmHg (83.0-108.0) Arterial Blood HCO3 29.9 mmol/L (21.0-28.0) Arterial Blood Oxygen Saturation 92.2 % (94.0-98.0) Arterial Blood Base Excess 5.1 mmol/L (-2.0-3.0) Arterial Blood Oxyhemoglobin 91.2 % (94.0-98.0) Arterial Blood Carboxyhemoglobin 0.5 % (0.5-1.5) Arterial Blood Methemoglobin 0.6 % (0.0-1.5) David Test Yes Blood Gas Total Hemoglobin 12.30 g/dL (12.0-16.0) Blood Gas Liter Flow 2.00 Blood Gas Modality Nasal cannula FiO2 % 28.0 Influenza Type A Antigen Negative (Negative) Influenza Type B Antigen Negative (Negative) SARS-CoV-2 Antigen (Rapid) Negative (NEGATIVE) Prothrombin Time 10.9 sec (9.3-11.8) Prothrombin Time INR 1.03 (0.9-1.15) Activated Partial Thromboplast Time 26.1 SEC (24.5-34.5) Hemoglobin A1c 6.9 % A1C (<5.7) Lactic Acid Level 1.3 mmol/L (0.4-2.0) Total Bilirubin 0.5 mg/dL (0.2-1.0) Aspartate Amino Transferase (AST) 18 U/L (13-40) Alanine Aminotransferase (ALT) < 9 U/L (7-40) Alkaline Phosphatase 69 U/L (46-116) Total Protein 6.7 g/dL (5.7-8.2) Albumin 3.5 g/dL (3.2-4.8) Thyroid Stimulating Hormone (TSH) 0.62 uIU/mL (0.55-4.78) Ammonia < 10 umol/L (11-32) Vitamin B12 Level 937 pg/mL (211-911) Vitamin D 25-Hydroxy 30 ng/mL (.) 25-Hydroxy Vitamin D2 <1.0 ng/mL (.) 25-Hydroxy Vitamin D3 29 ng/mL (.) Test 10/08/24 22:45 10/08/24 19:05 10/08/24 18:01 Urine Color Light-yellow (Yellow) Urine Clarity Turbid (Clear) Urine pH 6.0 (5.0-9.0) Urine Specific [place] 1.009 (1.001-1.035) Urine Protein Negative (Negative) Urine Ketones Negative (Negative) Urine Blood Negative /uL (Negative) Urine Nitrite Negative (Negative) Urine Bilirubin Negative (Negative) Urine Urobilinogen Normal mg/dL (Negative) Urine Leukocyte Esterase 3+ /uL (Negative) Urine RBC 5 /hpf (0 - 4) Urine Microscopic WBC 134 /HPF (0-5) Urine Squamous Epithelial Cells Few /hpf (<5) Urine Bacteria Few /hpf (None Seen) Urine Glucose Normal mg/dL (Normal) Urine Opiates Screen Neg (NEGATIVE) Urine Fentanyl Screen Neg (NEGATIVE) Urine Barbiturates Screen Neg (NEGATIVE) Urine Phencyclidine Screen Neg (NEGATIVE) Urine Amphetamines Screen Neg (NEGATIVE) Urine Benzodiazepines Screen Pos (NEGATIVE) Urine Cocaine Screen Neg (NEGATIVE) Urine Cannabinoids Screen Neg (NEGATIVE) Troponin I High Sensitivity 7 ng/L (</=34) B-Type Natriuretic Peptide 144.78 pg/mL (0-100) Other Laboratory Tests 10/14/24 09:30 Brief Hx & Hospital Course: CHANDAN BONILLA is a 79-year-old female with past medical history of COPD (on 4.5 L of oxygen at home) CVA with residual deficits, dementia, dyslipidemia, and hypertension brought from the [facility] [place], [place] to the hospital due to altered mental status, and decreased oral intake. Due to ALOC of patient history was taken from the daughter on the phone. Per patient's daughter she has been more altered and increased shortness of breaths recently, but could not provide more detailed history. Patient was previously on hospice care due to advanced COPD but has recently revoked. Patient required hospital admission for further evaluation and management of COPD exacerbation complicated VRE UTI. Patient was treated on IV antibiotics, breathing treatments along with Solu-Medrol. Patient condition was continuously monitored. Panculture Ordered. Urine cultures growing Enterococcus faecium resistance to vancomycin along with Selina albicans. Initially patient is on cefepime, doxycycline later discontinued cefepime, added Zyvox and Diflucan. patient sacral ulcer, wound consult evaluated the patient with the appropriate dressing. Continuously monitor lab and replace electrolytes as needed. Patient condition was improved, hemodynamically stable and in condition to discharge snf with doxycycline, linezolid along with prednisolone. Discharge plan been discussed with the patient and family and agreed to the plan. Patient was advised about healthy lifestyle modifications including diet and exercise to follow up with PCP. General Appearance: Alert, Oriented to person and place, disoriented to time HEENT: Atraumatic, PERRLA, EOMI, Mucous membrane moist/pink Respiratory: Clear to auscultation, Normal air movement Cardiovascular: Regular rate, Normal S1, Normal S2, No murmurs Abdominal: Normal bowel sounds, Soft, No tenderness, No hepatosplenomegaly, No masses Extremities: No edema, no cyanosis, no tenderness Skin: Sacral area grade 1-2 bedsore Neuro: Normal gait, slow speech, Residual left-sided weakness from past CVA Nurse was there as a shift foreman during the physical examination Operations or Procedures ECHO Technically good study. Sinus rhythm. Concentric LVH with left atrial enlargement. Mild mitral annular calcification. Calcification of the base of the posterior mitral leaflet. Mild dilation of the sinuses of Valsalva. Mild aortic sclerosis. Tricuspid and pulmonic or structurally normal. Left ventricular function is preserved at 60% with normal RV function. Moderate tricuspid regurgitation. No pericardial effusion masses or vegetations. Condition at Discharge: Stable Final Diagnosis/Problems List # Acute toxic/metabolic encephalopathy likely due to below-improving # Acute on chronic hypoxic respiratory failure, present on admission-improving # COPD exacerbation # Sepsis from UTI # Acute complicated UTI due to VRE # H/o dementia # sacral ulcer likely stage II # Hypokalemia # Diarrhea Discharge Disposition: Snf Facility Discharge Instruct/Medications Diet: Consistent carbohydrate, Cardiac 2g Na,low cholest Activity: No Restrictions, As Tolerated Follow Up/Referral: PCP Medications: Zyvox BID 14 days Doxy BID % days Robutassin Bid as needed for 10 days Discharge Statement: "Patient was advised to return to the ER or call 911 if any headaches, dizziness, shortness of breath, chest pain, abdominal pain, bleeding, fevers, or worsening of medical condition. Patient was counseled about treatment plan, medications, possible side effects, patientverbalized understanding. All questions were answered to the best of my ability. This discharge took greater then 30 minutes in planning, reviewing documentation, counseling the patient, and discussing with other team members." ASSESSMENT ASSESSMENT Assessment Copd Exacerbation STEPHANI JOSE RESIDENT Oct 14, 2024 13:08
[2024-10-14] MEDS: ONDANSETRON HCL 4 MG/2 ML VIAL IV PRN (14:02)
[2024-10-15] MEDS ORDERED: amLODIPine BESYLATE 5 MG TAB PO SCH (10:00)
== END 2024-10-14 16:30 | DRG 871 ==
LOC: EDBD 17:01 → ER 17:01 → OVERFLOW 22:52 → TELE-WESTW 10-09 22:30 → WEST WING 10-11 13:33 → CENTRAL 10-12 03:13
PROVIDERS: ADMIT Internal Medicine; ATTEND Internal Medicine
DX: A41.9 Sepsis, unspecified organism (principal); G92.8 Other toxic encephalopathy; J96.21 Acute and chronic respiratory failure with hypoxia; N39.0 Urinary tract infection, site not specified; J44.1 Chronic obstructive pulmonary disease with (acute) exacerbation; J44.0 Chronic obstructive pulmonary disease with (acute) lower respiratory infection; Z16.21 Resistance to vancomycin; E87.6 Hypokalemia; I10 Essential (primary) hypertension; E78.5 Hyperlipidemia, unspecified; E87.5 Hyperkalemia; F03.90 Unspecified dementia, unspecified severity, without behavioral disturbance, psychotic disturbance, mood disturbance, and anxiety; S31.000A Unspecified open wound of lower back and pelvis without penetration into retroperitoneum, initial encounter; L89.152 Pressure ulcer of sacral region, stage 2; Z90.710 Acquired absence of both cervix and uterus; Z87.891 Personal history of nicotine dependence; Z86.73 Personal history of transient ischemic attack (TIA), and cerebral infarction without residual deficits; Z88.1 Allergy status to other antibiotic agents; Z91.012 Allergy to eggs; Z88.2 Allergy status to sulfonamides; Z91.048 Other nonmedicinal substance allergy status; Z85.828 Personal history of other malignant neoplasm of skin; X58.XXXA Exposure to other specified factors, initial encounter; Y93.89 Activity, other specified; Y99.8 Other external cause status; Y92.89 Other specified places as the place of occurrence of the external cause
CPT/HCPCS: 36415; 36600; 71045; 80048; 80053; 80307; 81001; 82140; 82306; 82607; 82805; 82962; 83036; 83605; 83735; 83880; 84443; 84484; 85025; 85048; 85610; 85730; 87040; 87045; 87081; 87086; 87088; 87186; 87426; 87427; 87804; 93005; 93306; 94640; 96365; 96375; 99291; G0378; J1815; J2405; J2470; J3490